=== PATIENT | female | born 1955 | race Caucasian/White ===

== ENCOUNTER → 2018-02-13 11:13 | Outpatient (CLI) | payer MEDICARE, SELFPAY ==
[2018-02-13 15:43] LABS: Absolute Lymphocyte Count 1.17 X10^3/ul (0.83-4.51); Basophil# 0.01 X10^3/uL; Basophil% 0.2 % (0-1); Eosinophil# 0.12 X10^3/uL; Eosinophils% 2.6 % (0-5); Hematocrit 33.5 % (37-47); Hemoglobin 10.4 g/dl (12.0-15.0); Lymphocyte # 1.17 X10^3/ul (4.0); Lymphocyte % 25.4 % (19-41); Mean Corpuscular Hgb 29.4 pg (27.0-32.0); Mean Corpuscular Volume 94.6 fL (81-99); Mean Platelet Vol. 9.5 fl (6.2-12.0); Monocyte# 0.32 X10^3/uL; Monocyte% 6.9 % (0-10); Neutrophil # 2.98 X10^3/uL (2.7-7.7); Neutrophil % 64.7 % (47-70); Platelet Count 259 K/mm3 (150-450); RBC Distribution Width CV 16.6 % (11.6-14.6); RBC Distribution Width SD 57.8 fl (35.1-43.9); Red Blood Count 3.54 M/mm3 (4.2-5.4); White Blood Count 4.6 K/mm3 (4.4-11.0)
[2018-02-13 15:51] LABS: POSITIVE COUNT NO; POSITIVE DIFFERENTIAL NO; POSITIVE MORPHOLOGY NO
[2018-02-13 16:01] LABS: International Normalized Ratio 2.8; Prothrombin Time (Protime)PT. 29.8 SECONDS (11.7-14.9)
[2018-02-13 16:11] LABS: Anion Gap 11 (5-15); BUN 34 mg/dL (7-18); BUN/Creat Ratio 11.4 RATIO (10-20); Chloride 109 mmol/L (98-107); Creatinine, Serum 2.98 mg/dL (0.55-1.02); EST Glomerular Filtration Rate 17 mL/min (>60); Est Glom Filt Rate - Afr Amer 20 mL/min (>60); Glucose 124 mg/dL (74-106); Potassium 4.7 mmol/L (3.5-5.1); Sodium Level 142 mmol/L (136-145)
== END ==
PROVIDERS: Family Provider Family Medicine; PCP Family Medicine; Visit Provider Family Medicine
DX: D68.2 Hereditary deficiency of other clotting factors (principal); N02.8 Recurrent and persistent hematuria with other morphologic changes
CPT/HCPCS: 36415; 80048; 85025; 85610

== ENCOUNTER → 2018-05-19 09:17 | Outpatient (CLI) | payer MEDICARE, SELFPAY ==
--- NOTE | 2018-05-19 09:25 | RAD_ITS ---
STUDY: X-RAY - LUMBAR SPINE REASON FOR EXAM: Female, 62 years old. Lower back pain. TECHNIQUE: 4 view(s) of the lumbar spine were obtained. COMPARISON: Lumbar spine, February 18, 2017. FINDINGS: There is exaggeration of lumbar lordosis. There is a levoscoliosis with the convexity L2. There is anterolisthesis of L4 and L5. The remainder of the alignment is preserved. There is no change in alignment with flexion or extension. There is multilevel endplate spondylosis of the lumbar vertebrae. There is multi-level degenerative disc disease with multi-level disc space narrowing. There is a questionable compression deformity superior endplate of L3 although this may be partially secondary to the scoliosis. No marked compression is noted on the AP film. There is evidence of a muscle, stimulator as well as a sacral stimulator. RAD/L/S Spine Min 4 Views IMPRESSION: Scoliosis and degenerative changes lumbar spine. There is no major change from February 18, 2017. Electronically Signed: Cabrera Arango DO at 17:25 EDT Tel [phone], Service support ,
--- NOTE | 2018-05-19 09:49 | RAD_ITS ---
STUDY: XR SPINE ENTIRE THORACIC T LUMBAR (W SKULL, CERVICAL AND SACRAL SPINE IF PERFORMED) REASON FOR EXAM: Female, 62 years old. Chronic back pain. TECHNIQUE: Radiological exam, spine, entire thoracic and lumbar, including skull, cervical and sacral spine if performed (eg, scoliosis evaluation); 2 or 3 views. COMPARISON: None. FINDINGS: There is a 15 degree dextroscoliosis of the thoracic spine with the apex of the convexity at the T6 level. There is a 20 degree levoscoliosis scoliosis of the lumbar spine with the apex of the convexity at the level. Normal kyphosis of the thoracic spine. Normal thoracic vertebrae and endplates. There is multilevel disc space narrowing of the thoracic spine. Normal lordosis of the lumbar spine. Normal lumbar vertebrae and endplates. There is multilevel disc space narrowing of the lumbar spine. The soft tissue structures are unremarkable. RAD/Scoliosis 2 or 3 views IMPRESSION: 15 degree dextroscoliosis of the thoracic spine and 20 degrees levoscoliosis of the lumbar spine. Electronically Signed: Pola Archuleta MD at 9:16 EDT Tel [phone], Service support ,
--- NOTE | 2018-05-19 10:32 | RAD_ITS ---
STUDY: X-RAY - LEFT KNEE REASON FOR EXAM: Female, 62 years old. Bilateral knee pain. TECHNIQUE: 4 view(s) of the knee. COMPARISON: None. FINDINGS: Normal visualized distal femur. Normal visualized proximal tibia and fibula. Normal proximal tibiofibular articulation. There is no demonstrated destructive osseous lesion. There is a genu varus deformity. 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 There is mild degenerative arthrosis of the lateral femorotibial compartment. There is severe degenerative arthrosis of the patellofemoral articulation. 1 The soft tissue structures are unremarkable. RAD/Knee 4 or More Views IMPRESSION: Degenerative changes of the left knee. Electronically Signed: Cabrera Arango DO at 17:27 EDT Tel [phone], Service support ,
--- NOTE | 2018-05-19 10:33 | RAD_ITS ---
STUDY: X-RAY - RIGHT KNEE REASON FOR EXAM: Female, 62 years old. Bilateral knee pain. TECHNIQUE: 4 view(s) of the knee. COMPARISON: None. FINDINGS: Normal visualized distal femur. Normal visualized proximal tibia and fibula. Normal proximal tibiofibular articulation. There is no demonstrated destructive osseous lesion. There is moderate degenerative arthrosis of the medial femorotibial compartment with moderate joint space narrowing. There is severe degenerative arthrosis of the lateral femorotibial compartment with severe joint space narrowing. There is severe degenerative arthrosis of the patellofemoral articulation. The soft tissue structures are unremarkable. RAD/Knee 4 or More Views IMPRESSION: Degenerative changes of the right knee with small joint effusion. Electronically Signed: Cabrera Arango DO at 17:26 EDT Tel [phone], Service support ,
== END ==
PROVIDERS: Family Provider Family Medicine; PCP Family Medicine; Visit Provider Orthopaedic Surgery
DX: M41.85 Other forms of scoliosis, thoracolumbar region (principal); M47.896 Other spondylosis, lumbar region; M51.36 Other intervertebral disc degeneration, lumbar region; M17.0 Bilateral primary osteoarthritis of knee
CPT/HCPCS: 72082; 72110; 73564

== ENCOUNTER → 2018-06-22 09:55 | Outpatient (CLI) | payer MEDICARE, SELFPAY ==
[2018-06-22 12:39] LABS: Absolute Lymphocyte Count 2.08 X10^3/ul (0.83-4.51); Absolute Neutrophil Count 7.3 X10^3/uL (2.0-7.7); Basophil# 0.01 X10^3/uL; Basophil% 0.1 % (0-1); Hematocrit 37.6 % (37-47); Hemoglobin 12.5 g/dl (12.0-15.0); Lymphocyte # 2.08 X10^3/ul (4.0); Lymphocyte % 20.2 % (19-41); Mean Corp Hgb Conc 33.2 g/gl (32-36); Mean Corpuscular Hgb 31.7 pg (27.0-32.0); Mean Corpuscular Volume 95.4 fL (81-99); Mean Platelet Vol. 9.4 fl (6.2-12.0); Monocyte# 0.79 X10^3/uL; Monocyte% 7.7 % (0-10); Neutrophil # 7.31 X10^3/uL (2.7-7.7); Neutrophil % 70.7 % (47-70); Platelet Count 305 K/mm3 (150-450); RBC Distribution Width CV 13.6 % (11.6-14.6); RBC Distribution Width SD 45.8 fl (35.1-43.9); Red Blood Count 3.94 M/mm3 (4.2-5.4); White Blood Count 10.3 K/mm3 (4.4-11.0)
[2018-06-22 12:41] LABS: POSITIVE COUNT NO; POSITIVE DIFFERENTIAL NO; POSITIVE MORPHOLOGY NO
[2018-06-22 12:51] LABS: Anion Gap 13 (5-15); BUN 43 mg/dL (7-18); BUN/Creat Ratio 17.9 RATIO (10-20); Calcium,Total 8.8 mg/dL (8.5-10.1); Chloride 108 mmol/L (98-107); Cholesterol 286 mg/dL (200); EST Glomerular Filtration Rate 22 mL/min (>60); Est Glom Filt Rate - Afr Amer 26 mL/min (>60); Glucose 106 mg/dL (74-106); High Density Lipoprotein 44 mg/dL; Potassium 4.8 mmol/L (3.5-5.1); Sodium Level 141 mmol/L (136-145); Triglycerides 231 mg/dL; Uric Acid 4.8 mg/dL (2.6-6.0); Very Low Density Lipoprotein 46 mg/dL (5-40)
[2018-06-22 13:02] LABS: Hemoglobin A1c 5.8 % (4.2-6.3)
== END ==
PROVIDERS: Family Provider Family Medicine; PCP Family Medicine; Visit Provider Family Medicine
DX: N02.8 Recurrent and persistent hematuria with other morphologic changes (principal); I12.9 Hypertensive chronic kidney disease with stage 1 through stage 4 chronic kidney disease, or unspecified chronic kidney disease; N18.4 Chronic kidney disease, stage 4 (severe); E78.5 Hyperlipidemia, unspecified; R73.03 Prediabetes
CPT/HCPCS: 36415; 80048; 80061; 83036; 84550; 85025

== ENCOUNTER → 2018-06-26 11:14 | Outpatient (CLI) | payer MEDICARE, SELFPAY ==
[2018-06-26 11:34] LABS: International Normalized Ratio 1.4; Prothrombin Time (Protime)PT. 17.6 SECONDS (11.7-14.9)
[2018-06-26 12:24] VITALS: BP 145/71; PULSE 68; RESP 16; TEMP 36.9; O2SAT 97; BMI 34.0
[2018-06-26 14:20] VITALS: BP 113/63; PULSE 64; RESP 16; O2SAT 95
--- NOTE | 2018-06-26 14:35 | NURSING ---
PT STS SHE FEELS MUCH BETTER. DENIES DIZZINESS WITH STANDING/AMBULATION.
== END ==
LOC: RAD 11:15
PROVIDERS: Family Provider Family Medicine; PCP Family Medicine; Visit Provider Orthopaedic Surgery
DX: M54.5 Low back pain (principal); G89.29 Other chronic pain; D68.2 Hereditary deficiency of other clotting factors
CPT/HCPCS: 36415; 72125; 72131; 72270; 85610; Q9967

== ENCOUNTER → 2018-11-12 13:43 | Outpatient (CLI) | payer MEDICARE, BC, SELFPAY ==
[2018-11-12 16:01] LABS: Absolute Lymphocyte Count 1.18 X10^3/ul (0.83-4.51); Absolute Neutrophil Count 4.9 X10^3/uL (2.0-7.7); Basophil# 0.01 X10^3/uL; Basophil% 0.1 % (0-1); Eosinophil# 0.11 X10^3/uL; Eosinophils% 1.6 % (0-5); Hemoglobin 11.7 g/dl (12.0-15.0); Lymphocyte # 1.18 X10^3/ul (4.0); Lymphocyte % 17.6 % (19-41); Mean Corp Hgb Conc 32.5 g/gl (32-36); Mean Corpuscular Hgb 30.2 pg (27.0-32.0); Mean Platelet Vol. 9.1 fl (6.2-12.0); Monocyte% 7.5 % (0-10); Neutrophil # 4.87 X10^3/uL (2.7-7.7); Neutrophil % 72.9 % (47-70); POSITIVE COUNT NO; POSITIVE DIFFERENTIAL NO; POSITIVE MORPHOLOGY NO; Platelet Count 302 K/mm3 (150-450); RBC Distribution Width CV 16.7 % (11.6-14.6); Red Blood Count 3.87 M/mm3 (4.2-5.4); White Blood Count 6.7 K/mm3 (4.4-11.0)
[2018-11-12 16:22] LABS: Anion Gap 12 (5-15); BUN 34 mg/dL (7-18); BUN/Creat Ratio 16.2 RATIO (10-20); Calcium,Total 8.9 mg/dL (8.5-10.1); Chloride 107 mmol/L (98-107); EST Glomerular Filtration Rate 25 mL/min (>60); Est Glom Filt Rate - Afr Amer 30 mL/min (>60); Ferritin 266 ng/mL (8-252); Glucose 91 mg/dL (74-106); Iron 95 ug/dL (50-170); Potassium 3.8 mmol/L (3.5-5.1); Sodium Level 142 mmol/L (136-145)
[2018-11-12 16:27] LABS: International Normalized Ratio 1.5
== END ==
PROVIDERS: Family Provider Family Medicine; PCP Family Medicine; Visit Provider Family Medicine
DX: N18.4 Chronic kidney disease, stage 4 (severe) (principal); D63.1 Anemia in chronic kidney disease; N02.8 Recurrent and persistent hematuria with other morphologic changes; Z51.81 Encounter for therapeutic drug level monitoring; Z79.01 Long term (current) use of anticoagulants
CPT/HCPCS: 36415; 80048; 82728; 83540; 85025; 85610

== ENCOUNTER → 2018-11-26 15:31 | Outpatient (CLI) | payer MEDICARE, BC, SELFPAY ==
[2018-11-26 15:35] LABS: Bacteria 0 SEEN /hpf (None Seen); Mucous, Urine 0 SEEN /hpf (<or=2+)
[2018-11-26 16:59] LABS: Color, Urine Yellow (Yellow); Glucose, Dipstick Normal (Normal); Ketone-Dipstick 5 mg/dl (Negative); Leukocyte Esterase-Dipstick 500 /ul (Negative); Nitrite-Dipstick Negative (Negative); Occult Blood-Urine 10 /ul (Negative); Protein-Dipstick 30 mg/dl (Negative); Urine Clarity Sl. Cloudy (Clear); Urine Urobilinogen Normal (Normal)
[2018-11-26 17:02] LABS: Urine Bilirubin Dipstick 1 mg/dL (Negative)
[2018-11-26 17:08] LABS: Absolute Lymphocyte Count 1.71 X10^3/ul (0.83-4.51); Absolute Neutrophil Count 5.7 X10^3/uL (2.0-7.7); Basophil# 0.04 X10^3/uL; Basophil% 0.5 % (0-1); Eosinophil# 0.12 X10^3/uL; Eosinophils% 1.4 % (0-5); Hematocrit 38.3 % (37-47); Hemoglobin 12.8 g/dl (12.0-15.0); Lymphocyte # 1.71 X10^3/ul (4.0); Lymphocyte % 20.6 % (19-41); Mean Corp Hgb Conc 33.4 g/gl (32-36); Mean Corpuscular Hgb 31.3 pg (27.0-32.0); Mean Corpuscular Volume 93.6 fL (81-99); Mean Platelet Vol. 9.2 fl (6.2-12.0); Monocyte# 0.73 X10^3/uL; Monocyte% 8.8 % (0-10); Neutrophil % 68.5 % (47-70); Platelet Count 280 K/mm3 (150-450); RBC Distribution Width CV 15.9 % (11.6-14.6); RBC Distribution Width SD 53.9 fl (35.1-43.9); Red Blood Count 4.09 M/mm3 (4.2-5.4); White Blood Count 8.3 K/mm3 (4.4-11.0)
[2018-11-26 17:13] LABS: ALB/GLOB Ratio 0.9 RATIO (0.9-2.4); AST(SGOT) 13 U/L (15-37); Alanine Aminotransfer ALT/SGPT 20 U/L (13-56); Albumin, Serum 3.4 g/dL (3.2-5.0); Alkaline Phosphatase 94 U/L (45-117); Anion Gap 9 (5-15); BUN 24 mg/dL (7-18); BUN/Creat Ratio 11.2 RATIO (10-20); Calcium,Total 8.7 mg/dL (8.5-10.1); Chloride 109 mmol/L (98-107); Creatinine, Serum 2.15 mg/dL (0.55-1.02); EST Glomerular Filtration Rate 25 mL/min (>60); Est Glom Filt Rate - Afr Amer 30 mL/min (>60); Globulin 3.9 g/dL (2.2-4.2); Glucose 101 mg/dL (74-106); Potassium 4.1 mmol/L (3.5-5.1); Protein, Total 7.3 g/dL (6.4-8.2); Sodium Level 139 mmol/L (136-145)
[2018-11-26 17:29] LABS: Differential Comment SCANNED; Differential Indicated SCAN CRITERIA MET; POSITIVE COUNT NO; POSITIVE DIFFERENTIAL NO; POSITIVE MORPHOLOGY YES
[2018-11-26 18:13] LABS: Amorphous Sediment 1+ URATE; Red Blood Cells-Urine 0-5 SEEN /hpf (0-5); Renal Epithelial Cells 0-5 SEEN /hpf (0-5); Squamous Epithelial Cells - UA 0-5 SEEN /hpf (5-10); White Blood Cells 25-50 SEEN /hpf (0-5)
--- OUTSIDE RECORDS SUMMARY | 2019-01-31 11:17 | XMS RPT_ITS ---
:1955 Author Organization [place] Support Name Relationship Address Phone D Unavailable Unavailable Unavailable BIMAL OLIVER Unavailable [address] + [place] [address] D Unavailable Unavailable Unavailable BIMAL OLIVER Unavailable [address] + [place] [address] BIMAL OLIVER Unavailable [address] + [facility] [place] [address] NOT GIVEN Unavailable Unavailable Unavailable BIMAL OLIVER Unavailable [address] + [place] [address] NOT GIVEN Unavailable Unavailable Unavailable D Unavailable Unavailable Unavailable BIMAL OLIVER Unavailable [address] + [place] [address] D Unavailable Unavailable Unavailable BIMAL OLIVER Unavailable Unavailable + [place] [address] D Unavailable Unavailable Unavailable BIMAL OLIVER Unavailable . + [place] [address] D Unavailable Unavailable Unavailable BIMAL OLIVER Unavailable Unavailable + D Unavailable Unavailable Unavailable BIMAL OLIVER Unavailable . + [place] [address] D Unavailable Unavailable Unavailable SEBASTIAN OLIVER Unavailable [address] + [place] [address] D Unavailable Unavailable Unavailable SEBASTIAN OLIVER Unavailable [address] + [place] [address] BIMAL OLIVER Unavailable [address] + [place] [address] NOT GIVEN Unavailable Unavailable Unavailable BIMAL OLIVER Unavailable [address] + [place] [address] NOT GIVEN Unavailable Unavailable Unavailable D Unavailable Unavailable Unavailable SEBASTIAN OLIVER Unavailable [address] + [place] [address] BIMAL OLIVER Unavailable Unavailable + BIMAL OLIVER Unavailable Unavailable + BIMAL OLIVER Unavailable [address] + [place] [address] BIMAL OLIVER Unavailable [address] + [place] [address] BIMAL OLIVER Unavailable [address] + [facility] [place] [address] NOT GIVEN Unavailable Unavailable Unavailable BIMAL OLIVER Unavailable [address] + [place] [address] NOT GIVEN Unavailable Unavailable Unavailable BIMAL OLIVER Unavailable [address] + [facility] [address] NOT GIVEN Unavailable Unavailable Unavailable BIMAL OLIVER Unavailable [address] + [place] [address] NOT GIVEN Unavailable Unavailable Unavailable Care Team Providers Name Role Phone DR. SCOTT ROBLEDO DO Primary Care Unavailable FATEHCNADINE, ANOGIACOMO Admitting Unavailable PATT NEAL MD Attending Unavailable FABIO WOLF, YAS Consulting Unavailable ISABELL KENT MD Consulting Unavailable MISTY WOLF, ANNA Consulting Unavailable DANIEL WOLF., DR. CELESTINO Langston Consulting Unavailable MARVINHCHAND, ANODIKA Attending Unavailable DR. SCOTT ROBLEDO DO Primary Care Unavailable SCOTT ROBLEDO Admitting Unavailable SCOTT ROBLEDO Attending Unavailable SCOTT ROBLEDO Primary Care Unavailable SCOTT ROBLEDO Consulting Unavailable PROVIDER, UNKNOWN Consulting Unavailable SCOTT ROBLEDO Admitting Unavailable SCOTT ROBLEDO Attending Unavailable SCOTT ROBLEDO Primary Care Unavailable SCOTT ROBLEDO Consulting Unavailable PROVIDER, UNKNOWN Consulting Unavailable ISABELL KENT MD Admitting Unavailable ISABELL KENT MD Attending Unavailable ISABELL KENT MD Primary Care Unavailable SCOTT ROBLEDO Consulting Unavailable PROVIDER, UNKNOWN Consulting Unavailable SWETHA SNOW Admitting Unavailable SWETHA SNOW Attending Unavailable SWETHA SNOW Primary Care Unavailable SCOTT ROBLEDO Consulting Unavailable SWETHA SNOW Referring Unavailable PROVIDER, UNKNOWN Consulting Unavailable ISABELL KENT MD Admitting Unavailable ISABELL KENT MD Attending Unavailable ISABELL KENT MD Primary Care Unavailable MAHNAZ, SCOTT A Consulting Unavailable PROVIDER, UNKNOWN Consulting Unavailable MAHNAZ, SCOTT A Admitting Unavailable MAHNAZ, SCOTT A Attending Unavailable MAHNAZ, SCOTT A Primary Care Unavailable MAHNAZ, SCOTT A Consulting Unavailable PROVIDER, UNKNOWN Consulting Unavailable NEREIDA JONES MD Admitting Unavailable NEREIDA JONES MD Attending Unavailable NEREIDA JONES MD Primary Care Unavailable MAHNAZ, SCOTT A Consulting Unavailable PROVIDER, UNKNOWN Consulting Unavailable ISABELL KENT MD Admitting Unavailable ISABELL KENT MD Attending Unavailable ISABELL KENT MD Primary Care Unavailable MAHNAZ, SCOTT A Consulting Unavailable PROVIDER, UNKNOWN Consulting Unavailable Mahnaz, Scott Attending Unavailable Mahnaz, Scott Primary Care Unavailable Mahnaz, Scott Attending Unavailable Mahnaz, Scott Primary Care Unavailable Mahnaz, Scott Primary Care Unavailable Susy Zhu Attending Unavailable Mahnaz, Scott Attending Unavailable Mahnaz, Scott Primary Care Unavailable Jones, Nereida Attending Unavailable Mahnaz, Scott Referring Unavailable Mahnaz, Scott Primary Care Unavailable Jones, Nereida Attending Unavailable Jones, Nereida Referring Unavailable Mahnaz, Scott Primary Care Unavailable Jones, Nereida Attending Unavailable Jones, Nereida Referring Unavailable Mahnaz, Scott Primary Care Unavailable Sweta Godfrey Attending Unavailable Mahnaz, Scott Referring Unavailable Mahnaz, Scott Primary Care Unavailable Jones, Nereida Attending Unavailable Jones, Nereida Referring Unavailable Mahnaz, Scott Primary Care Unavailable Jones, Nereida Attending Unavailable Mahnaz, Scott Referring Unavailable PROBLEMS PROBLEMS DATE TYPE CONDITION / CODE ATTENDING STATUS SOURCE 11/26/2018 Unknown N02.8 - Recurrent Mahnaz, Scott Active [place] and persistent Community hematuria with other Hospital morphologic changes Repository / N02.8(ICD-10) 11/26/2018 Unknown R30.0 - Dysuria / Mahnaz, Scott Active [place] R30.0(ICD-10) Community Hospital Repository 11/26/2018 Unknown N18.4 - Chronic Mahnaz, Scott Active [place] kidney disease, [facility] stage 4 (severe) / Hospital N18.4(ICD-10) Repository 11/13/2018 Unknown D64.9 - Anemia, Scott Robledo Active [place] unspecified / Community D64.9(ICD-10) Hospital Repository 09/01/2018 Admitting Scoliosis, NEREIDA JONES Active [facility] Diagnosis unspecified / [facility] M419(ICD-10) Hospital Repository 09/01/2018 Principle Scoliosis, NEREIDA JONES Active [facility] Diagnosis unspecified / [facility] M419(ICD-10) Hospital Repository 09/01/2018 Secondary Spinal stenosis, NEREIDA JONES Active [facility] Diagnosis site unspecified / [facility] M4800(ICD-10) Hospital Repository 06/26/2018 Unknown 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 / Hospital D68.2(ICD-10) Repository 06/11/2018 Unknown 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, 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 / M17.0(ICD-10) Repository 05/19/2018 Unknown M54.5 - Low back Nereida Jones Active [place] pain / M54.5(ICD-10) [facility] Hospital Repository 05/19/2018 Unknown M25.561 - Pain in Karen, Nereida Active [place] right knee / Community M25.561(ICD-10) Hospital Repository 05/19/2018 Unknown M25.562 - Pain in Karen, Nereida Active [place] left knee / Community M25.562(ICD-10) Hospital Repository 05/19/2018 Unknown M54.12 - Nereida Jones Active [place] Radiculopathy, [facility] cervical region / Hospital M54.12(ICD-10) Repository 05/19/2018 Unknown M54.16 - Roxanna JonesNereida Active [place] Radiculopathy, [facility] lumbar region / Hospital M54.16(ICD-10) Repository PROCEDURES PROCEDURES No Procedure Records FoundRESULTS RESULTS URINALYSIS, COMPLETE Collected: 11/26/2018 Status: F Source: [place] 3:32 PM [facility] REPOSITORY Order Comment: How was Urine Obtained? CLEAN CATCH TYPE CODE TESTS RESULT OUT OF RANGE REFERENCE UNITS LAB L400.3000 Yellow COLOR Normal Yellow LAB L400.3050 Clear Normal CLARITY Sl. Cloudy LAB L400.3200 Normal mg/dl Normal GLUCOSE, UR Normal LAB L400.3300 Negative mg/dL High BILIRUBIN URINE 1 Result Comment: COLOR OF URINE MAY AFFECT DIPSTICK RESULTS. LAB L400.3400 Negative mg/dl High KETONE UR 5 LAB L400.3465 1.002-1.030 Normal SP.GR. DIPSTX 1.020 LAB L400.3550 5.0 - 8.0 pH Normal UR 5.0 LAB L400.3600 Negative mg/dl High PROT DIPSTX 30 LAB L400.3700 Normal mg/dl Normal UROBILI Normal LAB L400.3750 Negative Normal NITRITE UR Negative LAB L400.3780 Negative /ul High OCCULT 10 BLOOD-UR LAB L400.3800 Negative /ul High LEUK ESTERASE 500 LAB L400.4050 0-5 /hpf Normal WBC 25-50 SEEN LAB L400.4100 0-5 /hpf Normal RBC-UA 0-5 SEEN LAB L400.4150 5-10 /hpf Normal SQUAM EPI 0-5 SEEN LAB L400.4300 None Seen /hpf Normal BACTERIA 0 SEEN LAB L400.4350 <or=2+ /hpf Normal MUCUS, URINE 0 SEEN LAB L400.4250 0-5 /hpf Normal RENAL EPI 0-5 SEEN LAB L400.4900 Normal AMORPHOUS 1+ URATE Performed By: #### L400.0001 #### [facility] [address] [place], [address] COMPREHENSIVE METABOLIC Collected: 11/26/2018 Status: F Source: [facility] 3:32 PM [facility] REPOSITORY TYPE CODE TESTS RESULT OUT OF RANGE REFERENCE UNITS LAB L501.0100 74-106 mg/dL Normal GLU 101 Result Comment: Fasting Glucose result from 100 to 125 mg/dL suggests IMPAIRED HOMEOSTASIS per A.D.A. criteria. Please note revised GLUCOSE reference range effective 2017. LAB L501.1000 7-18 mg/dL High BUN 24 LAB L501.1100 0.55-1.02 mg/dL High CREAT,SERUM 2.15 Result Comment: The validity of the calculated GFR AND GFRAA in patients over 70 years has not been determined. Clinical correlation is essential. LAB L501.1110 >60 mL/min Low EST GFR 25 Result Comment: Non- GFR Calc LAB L501.1115 >60 mL/min Low EST GFR - AA 30 Result Comment: GFR Calc LAB L501.1300 10-20 RATIO Normal BUN/CRE 11.2 LAB L501.1500 6.4-8.2 g/dL T Normal PROT 7.3 LAB L501.1800 3.2-5.0 g/dL Normal ALB 3.4 LAB L501.1950 2.2-4.2 g/dL Normal GLOB 3.9 LAB L501.2000 0.9-2.4 RATIO Normal A/G 0.9 LAB L501.2200 8.5-10.1 mg/dL CA Normal 8.7 LAB L501.4100 15-37 U/L Low AST 13 LAB L501.4305 45-117 U/L Normal ALK P 94 LAB L501.4405 13-56 U/L Normal ALT 20 LAB L501.4600 0.20-1.00 mg/dL T Normal BILI 0.40 LAB L501.5300 136-145 mmol/L NA Normal 139 LAB L501.5600 3.5-5.1 mmol/L K Normal 4.1 LAB L501.5900 98-107 mmol/L High CL 109 LAB L501.6100 21.0-32.0 mmol/L Normal CO2 21.0 LAB L501.6200 5-15 Normal GAP 9 Performed By: #### L500.4050 #### [facility] [address] [place], [address] CBC W/DIFF, AUTOMATED Collected: 11/26/2018 Status: F Source: [place] 3:32 PM [facility] REPOSITORY TYPE CODE TESTS RESULT OUT OF RANGE REFERENCE UNITS LAB L100.1000 4.4-11.0 K/mm3 Normal WBC 8.3 LAB L100.1200 4.2-5.4 M/mm3 Low RBC 4.09 LAB L100.1300 12.0-15.0 g/dl Normal HGB 12.8 LAB L100.1400 37-47 % Normal HCT 38.3 LAB L100.1500 81-99 fL Normal MCV 93.6 LAB L100.1600 27.0-32.0 pg Normal MCH 31.3 LAB L100.1700 32-36 g/gl Normal MCHC 33.4 LAB L100.1810 11.6-14.6 % High RDW CV 15.9 LAB L100.1820 35.1-43.9 fl High RDW SD 53.9 LAB L100.1900 150-450 K/mm3 Normal PLT 280 LAB L100.2000 6.2-12.0 fl Normal MPV 9.2 LAB L100.2100 47-70 % Normal NEUT% 68.5 LAB L100.2200 19-41 % Normal LY% 20.6 LAB L100.2300 0-10 % Normal MONO% 8.8 LAB L100.2400 0-5 % Normal EO% 1.4 LAB L100.2500 0-1 % Normal BASO% 0.5 LAB L100.2550 0.0-0.9 % Normal IM GRAN % 0.200 Result Comment: IG% - Immature Granulocytes (promyelocytes, myelocytes and metamyelocytes) > 1% indicates that a LEFT SHIFT is Present. LAB L100.2620 2.0-7.7 X10 3/uL Normal Absolute Neut 5.7 LAB L100.2720 0.83-4.51 X10 3/ul Normal Absolute Lymph 1.71 LAB L100.4500 Normal SMEAR COMMENT SCANNED Performed By: #### L100.0100 #### [facility] [address] [place], [address] Observed: 11/26/2018 Status: F Source: [place] CULTURE, URINE 3:32 PM [facility] REPOSITORY Urine Culture Below infection level. ORGANISM 1: Mixed Gram Positive Organisms [place] Count 1000-10,000 Performed By: #### M100.0650 #### [facility] [address] [place], [address] CBC W/DIFF, AUTOMATED Collected: 11/12/2018 Status: F Source: [place] 1:52 PM [facility] REPOSITORY TYPE CODE TESTS RESULT OUT OF RANGE REFERENCE UNITS LAB L100.1000 4.4-11.0 K/mm3 Normal WBC 6.7 LAB L100.1200 4.2-5.4 M/mm3 Low RBC 3.87 LAB L100.1300 12.0-15.0 g/dl Low HGB 11.7 LAB L100.1400 37-47 % Low HCT 36.0 LAB L100.1500 81-99 fL Normal MCV 93.0 LAB L100.1600 27.0-32.0 pg Normal MCH 30.2 LAB L100.1700 32-36 g/gl Normal MCHC 32.5 LAB L100.1810 11.6-14.6 % High RDW CV 16.7 LAB L100.1820 35.1-43.9 fl High RDW SD 55.0 LAB L100.1900 150-450 K/mm3 Normal PLT 302 LAB L100.2000 6.2-12.0 fl Normal MPV 9.1 LAB L100.2100 47-70 % High NEUT% 72.9 LAB L100.2200 19-41 % Low LY% 17.6 LAB L100.2300 0-10 % Normal MONO% 7.5 LAB L100.2400 0-5 % Normal EO% 1.6 LAB L100.2500 0-1 % Normal BASO% 0.1 LAB L100.2550 0.0-0.9 % Normal IM GRAN % 0.300 Result Comment: IG% - Immature Granulocytes (promyelocytes, myelocytes and metamyelocytes) > 1% indicates that a LEFT SHIFT is Present. LAB L100.2620 2.0-7.7 X10 3/uL Normal Absolute Neut 4.9 LAB L100.2720 0.83-4.51 X10 3/ul Normal Absolute Lymph 1.18 Performed By: #### L100.0100 #### [facility] [address] [place], [place], [id number] BASIC METABOLIC Collected: 11/12/2018 Status: F Source: [place] PROFILE ([facility]) 1:52 PM [facility] REPOSITORY TYPE CODE TESTS RESULT OUT OF RANGE REFERENCE UNITS LAB L501.0100 74-106 mg/dL Normal GLU 91 Result Comment: Please note revised GLUCOSE reference range effective 2017. LAB L501.1000 7-18 mg/dL High BUN 34 LAB L501.1100 0.55-1.02 mg/dL High CREAT,SERUM 2.10 Result Comment: The validity of the calculated GFR AND GFRAA in patients over 70 years has not been determined. Clinical correlation is essential. LAB L501.1110 >60 mL/min Low EST GFR 25 Result Comment: Non- GFR Calc LAB L501.1115 >60 mL/min Low EST GFR - AA 30 Result Comment: GFR Calc LAB L501.1300 10-20 RATIO Normal BUN/CRE 16.2 LAB L501.2200 8.5-10.1 mg/dL CA Normal 8.9 LAB L501.5300 136-145 mmol/L NA Normal 142 LAB L501.5600 3.5-5.1 mmol/L K Normal 3.8 LAB L501.5900 98-107 mmol/L CL Normal 107 LAB L501.6100 21.0-32.0 mmol/L Normal CO2 23.0 LAB L501.6200 5-15 Normal GAP 12 Performed By: #### L500.2500, L503.6150, L503.6550 #### [facility] [address] [place] [place], [address] IRON Collected: 11/12/2018 Status: F Source: [place] 1:52 PM [facility] REPOSITORY TYPE CODE TESTS RESULT OUT OF RANGE REFERENCE UNITS LAB L503.6150 50-170 ug/dL Normal IRON 95 Performed By: #### L500.2500, L503.6150, L503.6550 #### [facility] [address] [place], [address] FERRITIN Collected: 11/12/2018 Status: F Source: [place] 1:52 PM [facility] REPOSITORY TYPE CODE TESTS RESULT OUT OF REFERENCE UNITS RANGE LAB L503.6550 8-252 ng/mL High FERRITIN 266 Performed By: #### L500.2500, L503.6150, L503.6550 #### [facility] [address] [place], [address] PROTHROMBIN TIME W/INR Collected: 11/12/2018 Status: F Source: [place] 1:52 PM [facility] REPOSITORY TYPE CODE TESTS RESULT OUT OF RANGE REFERENCE UNITS LAB L300.4150 11.7-14.9 SECONDS High PROTIME 18.0 LAB L300.4200 Normal INR 1.5 Performed By: #### L300.3900 #### [facility] [address] [place] [place], [address] CBC (NO DIFF) Collected: 10/12/2018 Status: F Source: [place] [facility] 9:11 AM [facility] REPOSITORY TYPE CODE TESTS RESULT OUT OF RANGE REFERENCE UNITS LAB CBC (NO DIFF)(LOINC ) CBC (NO DIFF) Result Comment: CBC(WITHOUT DIFFERENTIAL) LAB WBC(LOINC) 4.5 - 10.8 x 10EE3/UL WBC 6.9 LAB RBC(LOINC) 4.10 - x 10EE6/UL 5.30 RBC Low 4.04 LAB HEMOGLOBIN(LOINC) 12.0 - g/dl 16.0 HEMOGLOBIN 13.0 LAB HEMATOCRIT(LOINC) 34.0 - % 46.0 HEMATOCRIT 38.6 LAB MCV(LOINC) 80 - 99 fl MCV 96 LAB MCH(LOINC) 27 - 33 pg MCH 32 LAB MCHC(LOINC) 32 - 36 X10 3 MCHC 34 LAB RDW/CV(LOINC) 12.0 - % 15.6 RDW/CV 15.6 LAB PLATELET(LOINC) 150 - 450 x10EE3/UL PLATELET 293 LAB MPV(LOINC) 6.6 - 10.5 fl MPV 7.6 Result Comment: {CB] Performed By: #### [id number] #### [facility],[address] [place] [address] URINE CREATININE AND Collected: 10/12/2018 Status: F Source: [place] PROTEIN RATIO 9:11 AM [facility] REPOSITORY TYPE CODE TESTS RESULT OUT OF REFERENCE UNITS RANGE LAB CREATININE mg/dl UR(LOINC) CREATININE UR 179.1 LAB URINE TOTAL 0.00 - 10.00 mg/dL PROTEIN(LOINC) URINE High TOTAL PROTEIN 55.00 LAB PC RATIO(LOINC) 0 - 10 mg/dL PC RATIO 0 Performed By: #### [id number] #### [facility],[address] [place], [place] [address] RENAL FUNCTION PANEL Collected: 10/12/2018 Status: F Source: [place] 9:11 AM [facility] REPOSITORY TYPE CODE TESTS RESULT OUT OF REFERENCE UNITS RANGE LAB RENAL FUNCTION PANEL(LOINC) RENAL FUNCTION PANEL Result Comment: RENAL FUNCTION PANEL LAB SODIUM(LOINC) 136 - 145 mmol/l SODIUM 140 LAB POTASSIUM(LOINC) 3.5 - 5.1 mmol/L POTASSIUM 4.0 LAB CHLORIDE(LOINC) 98 - 107 mmol/L CHLORIDE High 108 LAB GLUCOSE(LOINC) 74 - 106 mg/dl GLUCOSE High 119 LAB BUN(LOINC) 6 - 20 mg/dl BUN High 32 LAB CREATININE(LOINC) 0.6 - 1.2 mg/dl High CREATININE 2.2 LAB CALCIUM(LOINC) 8.6 - mg/dl 10.2 CALCIUM 9.8 LAB ALBUMIN(LOINC) 3.4 - 4.8 g/dL ALBUMIN 4.2 LAB B/C RATIO(LOINC) 0 - 30 ratio B/C RATIO 15 LAB CO2(LOINC) 21.0 - mmol/L 31.0 CO2 21.7 LAB PHOSPHORUS(LOINC) 2.7 - 4.5 mg/dl PHOSPHORUS 3.3 Performed By: #### [id number] #### [place] [address] URIC ACID Collected: 10/12/2018 Status: F Source: [facility] 9:11 [facility] REPOSITORY TYPE CODE TESTS RESULT OUT OF RANGE REFERENCE UNITS LAB URIC 2.3 - 6.6 mg/dl ACID(LOINC) URIC ACID 5.3 Performed By: #### [id number] #### [place] [address] IRON Collected: 10/12/2018 Status: F Source: [facility] 9:11 [facility] REPOSITORY TYPE CODE TESTS RESULT OUT OF RANGE REFERENCE UNITS LAB IRON(LOINC) 50 - 170 ug/dl IRON 86 Performed By: #### [id number] #### [place] [address] FERRITIN Collected: 10/12/2018 Status: F Source: [facility] 9:11 [facility] REPOSITORY TYPE CODE TESTS RESULT OUT OF REFERENCE UNITS RANGE LAB FERRITIN(LO 10 - 291 ng/mL INC) FERRITIN 74 Performed By: #### [id number] #### [place] [address] PTH, INTACT [CCL] Collected: 10/12/2018 Status: F Source: [facility] 9:11 [facility] REPOSITORY TYPE CODE TESTS RESULT OUT OF REFERENCE UNITS RANGE LAB PTH, INTACT [CCL](LOINC) PTH, INTACT [CCL] Result Comment: _PTH, INTACT [CCL]_ PTH, INTACT [CCL] Reported: 10/13/2018 10:06 Status=F TEST RESULT FLAG RANGE UNITS PTH, Intact 83 H 15-65 pg/mL 10/13/[id number] [facility] [address] [place] [address] Isis Gordon M.D. [id number] Performed By: #### [id number] #### [facility],[address] [place] [address] PTH, INTACT Collected: 10/12/2018 Status: F Source: [place] 9:11 AM [facility] REPOSITORY TYPE CODE TESTS RESULT OUT OF REFERENCE UNITS RANGE LAB PTH(LOINC) 15-65 pg/mL High PTH, Intact 83 Performed By: #### PTHI #### [facility] Routine Lab [address] [place], [place] [address] ORTHOPEDIC VISIT Observed: 08/05/2018 Status: F Source: [place] REPORT 5:08 PM [facility] REPOSITORY [facility] [address] [place] [address] OFFICE VISIT Date of Service: 08/04/18 MR#: [id number] Acct: [id number] Name: DEBBIE OLIVER Rep #: [id number] : 1955 Provider: Nereida Jones MD Age/Sex: 62/F Location: [facility] Status: Signed Intake Intake Visit Reasons: LOW BACK Is patient in pain?: Yes Pain scale (1-10): 10 Allergies No Known Allergies Allergy (Verified 08/04/18 15:40) Medications allopurinol 100 mg tablet 100 mg PO QDAY 05/19/18 [History Confirmed 06/26/18] cholecalciferol (vitamin D3) 1,000 unit capsule 1,000 unit PO QDAY 05/19/18 [History Confirmed 06/26/18] citalopram 40 mg tablet 20 mg PO QDAY 05/19/18 [History Confirmed 06/26/18] ferrous sulfate 325 mg (65 mg iron) tablet 325 mg PO QDAY tab 05/19/18 [History Confirmed 06/26/18] hydrocodone 10 mg-acetaminophen 325 mg tablet 1 tab PO Q6H PRN 05/19/18 [History Confirmed 06/26/18] lorazepam 1 mg tablet 1 mg PO QHS PRN 05/19/18 [History Confirmed 06/26/18] metoprolol tartrate 25 mg tablet 25 mg PO BID 05/19/18 [History Confirmed 06/26/18] omega-3 fatty acids 1,000 mg capsule 1,000 mg PO QDAY 05/19/18 [History Confirmed 06/26/18] oxybutynin chloride ER 10 mg tablet,extended release 24 hr 10 mg PO QDAY 05/19/18 [History Confirmed 06/26/18] vitamin B12 500 mcg-folic acid 400 mcg tablet 1 tab PO QDAY 05/19/18 [History Confirmed 06/26/18] warfarin 7.5 mg tablet 7.5 mg PO QDAY 05/19/18 [History Confirmed 06/26/18] PFSH Medical History Diabetes (Acute) Factor V Leiden (Acute) Kidney disease (Acute) Hypertension (Chronic) Surgical History h/o back surgery (Acute) h/o nerve stimulator (Acute) Family History Father Hypertension Diabetes Factor V Leiden Heart disease Mother Factor V Leiden Sister Cancer Factor V Leiden HPI LOW BACK: Details: DEBBIE OLIVER returns today in follow up to review her CT myelogram cervical and lumbar spine. Patient notes that she continues to have pain over her right low back 80% with numbness and tingling into her bilateral feet as well as bilateral thigh aches and pains 20%. Her knees feel better since she had cortisone injection with Dr Godfrey. Her pain is worse with walking and improved with sitting. Patient denies any physical therapy as she is waiting on the [place]. She denies any recent visits with Dr Natarajan. She takes norco 10/325mg BID managed by Dr. Robledo for the past year. She has stable urinary urgency. She does have a pain stimulator that she does not use. She is getting a brace for her left foot. She has factor V leiden deficiency and has had a DVT in the past. Nothing recently. 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 She has DM with peripheral neuropathy. She has anxiety and depression. She denies nicotine use. ROS Const Reports system reviewed and no additional complaints, except as docu Eyes Reports system reviewed and no additional complaints, except as docu ENT Reports system reviewed and no additional complaints, except as docu Card Reports system reviewed and no additional complaints, except as docu Resp Reports system reviewed and no additional complaints, except as docu GI Reports system reviewed and no additional complaints, except as docu Reports system reviewed and no additional complaints, except as docu Musc Reports back pain, Reports muscle weakness, Reports radiating pain into limb Skin/Breast Reports system reviewed and no additional complaints, except as docu Neuro Yes system reviewed and no additional complaints, except as docu Psych Reports system reviewed and no additional complaints, except as docu Endo Reports system reviewed and no additional complaints, except as docu Ortho Exam Spine Neuro: Yes Lewis's (positive bilaterally) and Straight Leg Raise (negative bilaterally) General: alert, oriented x3 Skin: Yes dysraphism (none) Capillary Refill <2sec: Yes Gait: normal gait, other (heel and toe stand) Motor: strength 5/5 throughout Sensory Exam: other (decreased in bilateral feet) DTR's: Rt Triceps: 2+, Lt Triceps: 2+, Rt Biceps: 2+, Lt Biceps: 2+, Rt Brachioradialis: 2+, Lt Brachioradialis: 2+, Rt Patellar: 2+, Lt Patellar: 2+, Rt Ankle: 2+, Lt Ankle: 2+ SPINE TESTING CERVICAL THORACIC LUMBAR SLR: Negative Musculoskeletal General: Yes normal gait Thoracic/Lumbar Spine: pain with thoraco-lumbar ROM (worse with lumbar extension than flexion), thoraco-lumbar ROM limited, paraspinal tenderness Strength 0=absent - 5=normal R Hip Flexor (L1-3): 5, L Hip Flexor (L1-3): 5, R Quadriceps (L2-4): 5, L Quadriceps (L2-4): 5, R Anterior Tibialis (L4-5): 5, L Anterior Tibialis (L4-5): 5, R Hamstrings (L5-S1): 5, L Hamstrings (L5-S1): 5, GS (S1): 5, L GS (S1): 5, R Peroneals (S1): 5, L Peroneals (S1): 5 Details: neutral sagittal balance coronally balanced Assessment AND Plan Problems 1. Other secondary scoliosis, thoracolumbar region M41.55 2. Spinal stenosis, lumbar region with neurogenic claudication M48.062 Plan Imaging: XR scoliosis 05/19/2018 reveals diffuse spondylosis with degenerative scoliosis CT cervical and lumbar myelogram reveals diffuse spondylosis of the cervical spine without severe central stenosis. CT lumbar spine reveals diffuse spondylosis with L2-L3 and L3-L4 central stenosis, scoliosis, right L5-S1 disc osteophyte complex and L4-S1 laminectomy I/R/P: 1. back pain 2. bilateral leg ache 3. history of lumbar laminectomy, elsewhere 3. bilateral knee pain, s/p injections 4. SCS 5. factor V leiden 6. IGA Ms. Olivre presents with multilevel lumbar spinal stenosis with degenerative scoliosis. Chris back pain is now greater than her leg discomfort. She has not started physical therapy. Discussed multilevel lumbar decompression with [id number] instrumented fusion, possible interbody fusion, allograft and autograft. She would need a DEXA, ca, vit D work up if she decides to pursue surgery. She will start physical therapy. Follow up in 4-6 weeks or sooner if issues arise. Plan of care discussed. All questions answered. She is in understanding. Coding Level of Care Code Off vis,est,level 4 Diagnoses Other secondary scoliosis, thoracolumbar region M41.55 Scoliosis type: other secondary scoliosis Spinal region: thoracolumbar Spinal stenosis, lumbar region with neurogenic claudication M48.062 08/05/18 1708 <Electronically signed by Nereida Jones MD> Date Nereida Jones MD Cosigner Signature: Date (if applicable) CC: Scott Robledo DO SPINE CERVICAL Observed: 06/26/2018 Status: F Source: [place] WITHOUT CONTRAS 1:07 PM [facility] REPOSITORY [facility] Imaging Services [address] [place] [address] Spine Cervical without Contras MR#: [id number] Acct: [id number] Name: DEBBIE OLIVER Rep #: [id number] : 1955 F 62 From: Pola Archuleta MD PCP: Scott Robledo DO Status: REG CLI Study: Spine Cervical without Contras Date of Exam: 06/26/18 Exam# [id number] Ordering Dr: Nereida Jones MD STUDY: CT CERVICAL SPINE WITH INTRATHECAL CONTRAST (CERVICAL CT MYELOGRAM) REASON FOR EXAM: Female, 62 years old. Chronic back pain. RADIATION DOSAGE (If Supplied By Facility): CTDIvol = ( 27.11 ) mGy, DLP = ( 566.96 ) mGycm TECHNIQUE: Transaxial images were obtained following intrathecal administration of 15 ml of Isovue-M 300 contrast material, performed by Dr. Archuleta. Please refer to this physicians technical notes for procedural details. Coronal and sagittal reconstructions were obtained. Individualized dose optimization techniques were used for this CT. Injection Information: 15 mL of Isovue-M 300. COMPARISON: None. FINDINGS: Normal craniovertebral junction. There are degenerative changes of the anterior atlantoaxial articulation. Normal odontoid process. Normal cervical lordosis. Normal vertebral bodies and posterior osseous elements. C2-3: Mild degree of right lateral disc bulge at the C2-C3 level causes minimal deformity of the thecal sac on the right side. No compromise of the exiting nerve roots is seen. C3-4: Moderate degree of disc space narrowing. Uncal vertebral arthrosis and facet joint osteoarthritis worse on the right side. Mild diffuse posterior disc bulge causing deformity of the anterior aspect of the thecal sac. C4-5: Moderate degree of disc space narrowing. Spondylosis anterior and posterior. This is worse on the posterior aspect of the right side of the C5 vertebra causing minimal narrowing of the intervertebral foramen at that site. Mild degree of central canal stenosis due to diffuse posterior disc bulge. C5-6: Mild degree of disc space narrowing. Spondylosis. Uncovertebral arthrosis. Narrowing of the right intervertebral foramen due to the posterior spondylosis and uncovertebral arthrosis. C6-7: Mild degree of disc space narrowing. Anterior spondylosis. No demonstrated soft tissue abnormality. CT/Spine Cervical without Contras IMPRESSION: Multiple findings as discussed above. Electronically Signed: Pola Archuleta MD at 15:45 EDT Tel [phone], Service support , CC: Nereida Jones MD; Scott Robledo DO Poultry Farmer: Signed SPINE LUMBAR WITHOUT Observed: 06/26/2018 Status: F Source: [place] CONTRAST 1:07 PM [facility] REPOSITORY [facility] Imaging Services [address] [place] [address] Spine Lumbar without Contrast MR#: [id number] Acct: [id number] Name: DEBBIE OLIVER Rep #: [id number] : 1955 F 62 From: Pola Archuleta MD PCP: Scott Robledo DO Status: REG CLI Study: Spine Lumbar without Contrast Date of Exam: 06/26/18 Exam# [id number] Ordering Dr: Nereida Jones MD STUDY: CT LUMBAR SPINE WITH INTRATHECAL CONTRAST (LUMBAR CT MYELOGRAM) REASON FOR EXAM: Female, 62 years old. Chronic low back pain. Stimulator device placement. RADIATION DOSAGE (If Supplied By Facility): CTDIvol = ( 39.15 ) mGy, DLP = ( 1235.31 ) mGycm TECHNIQUE: Transaxial images were obtained from the L1 vertebra through the S1 level, following intrathecal administration of 15 ml of Isovue-M 300 contrast material, performed by Dr. Archuleta. Please refer to this physicians technical notes for procedural details. Coronal and sagittal reconstructions were obtained. Individualized dose optimization techniques were used for this CT. COMPARISON: None. FINDINGS: Normal lumbar lordosis. There is a levo-scoliosis of the lumbar spine. Multilevel spondylosis. Approximately 50% loss of height of the superior endplate of the L3 vertebrae. There is dependent layering of contrast material in the distal thecal sac. The conus medullaris terminates in a normal position at the T12-L1 level. There is no demonstrated cauda equina nerve root abnormality or intraspinal mass. L1-2: Marked degree of disc space narrowing and disc degeneration. Spondylosis. Minimal retrolisthesis of L1 on L2. Moderate degree of the right paracentral disc herniation and spinal stenosis. Spinal L2-3: Marked degree of disc space narrowing and degeneration. Spondylosis. Facet joint osteoarthritis. Marked degree of a spinal stenosis due to a combination of facet joint osteoarthritis as well as hypertrophy of the ligamenta flava and the posterior central disc herniation. L3-4: 50% loss of height of the superior endplate of the L3 vertebrae. Marked degree of spinal stenosis caused by combination of hypertrophy of the ligamenta flava and diffuse posterior disc bulge. L4-5: Marked degree of disc space narrowing disc degeneration. Mild degree of anterior listhesis of L4 on L5. I suspect diffuse posterior disc herniation causing deformity of thecal sac and spinal stenosis. L5-S1: Marked degree of disc space narrowing. Large posterior osteophyte worse on the right side causing severe spinal stenosis. There are degenerative changes of the bilateral sacroiliac joints. Normal visualized paraspinous soft tissue structures. CT/Spine Lumbar without Contrast IMPRESSION: Multilevel spinal stenosis as described. Electronically Signed: Pola Archuleta MD at 15:52 EDT Tel [phone], Service support , CC: Nereida Jones MD; Scott Robledo DO Poultry Farmer: Signed MYELOGRAPHY 2/> SPINE Observed: 06/26/2018 Status: F Source: [facility] 12:19 PM [facility] REPOSITORY [facility] Imaging Services [address] [place] [address] Myelography 2/> Spine Regions MR#: [id number] Acct: [id number] Name: DEBBIE OLIVER Rep #: [id number] : 1955 F 62 From: Pola Archuleta MD PCP: Scott Robledo DO Status: REG CLI Study: Myelography 2/> Spine Regions Date of Exam: 06/26/18 Exam# [id number] Ordering Dr: Nereida Jones MD PROCEDURE: LUMBAR MYELOGRAM DATE OF EXAMINATION: June 26, 2018. INDICATION: Female, 62 years old. Low back pain. PHYSICIAN: Pola Archuleta M.D. CONSENT: The patient's history and physical findings were reviewed. The lumbar myelogram procedure was discussed with the patient prior to signing a consent. SEDATION: Local anesthesia with 3 mL of 1% lidocaine was used. FLUOROSCOPY TIME (if supplied): (1 minute) minutes/seconds Injection Information: 15 cc of Isovue-M 300. Number of images obtained: TECHNIQUE: Digital fluoroscopy was used to identify a safe approach for the lumbar myelogram. The back was prepped and draped in usual fashion. Local anesthesia was utilized. Under fluoroscopic guidance a 22- gauge spinal needle was inserted into the spinal canal at the L4-5 level. Clear spinal fluid was seen. 15 mL of Isovue 300 M was injected into the spinal canal. Multilevel spinal stenosis worse at the L2-L3, L3-L4 as well as L4-L5 levels. A CT scan will follow. Dextroscoliosis. IMPRESSION: Multilevel lumbar spinal stenosis. A CT scan will follow. Electronically Signed: Pola Archuleta MD at 13:42 EDT Tel [phone], Service support , PROCEDURE: LUMBAR MYELOGRAM DATE OF EXAMINATION: June 26, 2018. INDICATION: Female, 62 years old. Neck pain. PHYSICIAN: Pola Archuleta M.D. CONSENT: The patient's history and physical findings were reviewed. The lumbar myelogram procedure was discussed with the patient prior to signing a consent. SEDATION: Local anesthesia with 3 mL of 1% lidocaine was used. FLUOROSCOPY TIME (if supplied): (45 seconds) minutes/seconds Injection Information: 15 mL of Isovue-M 300 Number of images obtained: TECHNIQUE: Digital fluoroscopy was used to identify a safe approach for the lumbar myelogram. The back was prepped and draped in usual fashion. Local anesthesia was utilized. Under fluoroscopic guidance a 22- gauge spinal needle was inserted into the spinal canal at the L4-5 level. Clear spinal fluid was seen .. 15 mL of Isovue 300 M was injected into the spinal canal. Following this, contrast was advanced to the cervical level. No radiographic abnormality is seen. A CT scan will follow. RAD/Myelography 2/> Spine Regions IMPRESSION: Normal cervical myelogram. A CT scan will follow. Electronically Signed: Pola Archuleta MD at 13:44 EDT Tel [phone], Service support , CC: Nereida Jones MD; Scott Robledo DO Poultry Farmer: Signed PROTHROMBIN TIME W/INR Collected: 06/26/2018 Status: F Source: [place] 11:18 AM [facility] REPOSITORY TYPE CODE TESTS RESULT OUT OF RANGE REFERENCE UNITS LAB L300.4150 11.7-14.9 SECONDS High PROTIME 17.6 LAB L300.4200 Normal INR 1.4 Performed By: #### L300.3900 #### [facility] [address] [place], [address] CBC W/DIFF, AUTOMATED Collected: 06/22/2018 Status: F Source: [place] 9:56 AM [facility] REPOSITORY TYPE CODE TESTS RESULT OUT OF RANGE REFERENCE UNITS LAB L100.1000 4.4-11.0 K/mm3 Normal WBC 10.3 LAB L100.1200 4.2-5.4 M/mm3 Low RBC 3.94 LAB L100.1300 12.0-15.0 g/dl Normal HGB 12.5 LAB L100.1400 37-47 % Normal HCT 37.6 LAB L100.1500 81-99 fL Normal MCV 95.4 LAB L100.1600 27.0-32.0 pg Normal MCH 31.7 LAB L100.1700 32-36 g/gl Normal MCHC 33.2 LAB L100.1810 11.6-14.6 % Normal RDW CV 13.6 LAB L100.1820 35.1-43.9 fl High RDW SD 45.8 LAB L100.1900 150-450 K/mm3 Normal PLT 305 LAB L100.2000 6.2-12.0 fl Normal MPV 9.4 LAB L100.2100 47-70 % High NEUT% 70.7 LAB L100.2200 19-41 % Normal LY% 20.2 LAB L100.2300 0-10 % Normal MONO% 7.7 LAB L100.2400 0-5 % Normal EO% 1.0 LAB L100.2500 0-1 % Normal BASO% 0.1 LAB L100.2550 0.0-0.9 % Normal IM GRAN % 0.300 Result Comment: IG% - Immature Granulocytes (promyelocytes, myelocytes and metamyelocytes) > 1% indicates that a LEFT SHIFT is Present. LAB L100.2620 2.0-7.7 X10 3/uL Normal Absolute Neut 7.3 LAB L100.2720 0.83-4.51 X10 3/ul Normal Absolute Lymph 2.08 Performed By: #### L100.0100 #### [facility] [address] [place] [place], [address] BASIC METABOLIC Collected: 06/22/2018 Status: F Source: [place] PROFILE (BMP) 9:56 AM [facility] REPOSITORY TYPE CODE TESTS RESULT OUT OF RANGE REFERENCE UNITS LAB L501.0100 74-106 mg/dL Normal GLU 106 Result Comment: Fasting Glucose result from 100 to 125 mg/dL suggests IMPAIRED HOMEOSTASIS per A.D.A. criteria. Please note revised GLUCOSE reference range effective 2017. LAB L501.1000 7-18 mg/dL High BUN 43 LAB L501.1100 0.55-1.02 mg/dL High CREAT,SERUM 2.40 Result Comment: The validity of the calculated GFR AND GFRAA in patients over 70 years has not been determined. Clinical correlation is essential. LAB L501.1110 >60 mL/min Low EST GFR 22 Result Comment: Non- GFR Calc LAB L501.1115 >60 mL/min Low EST GFR - AA 26 Result Comment: GFR Calc LAB L501.1300 10-20 RATIO Normal BUN/CRE 17.9 LAB L501.2200 8.5-10.1 mg/dL CA Normal 8.8 LAB L501.5300 136-145 mmol/L NA Normal 141 LAB L501.5600 3.5-5.1 mmol/L K Normal 4.8 LAB L501.5900 98-107 mmol/L High CL 108 LAB L501.6100 21.0-32.0 mmol/L Low CO2 20.0 LAB L501.6200 5-15 Normal GAP 13 Performed By: #### L500.2500, L500.4100, L501.1400 #### [facility] [address] [place], [address] LIPID PROFILE Collected: 06/22/2018 Status: F Source: [place] 9:56 AM [facility] REPOSITORY TYPE CODE TESTS RESULT OUT OF RANGE REFERENCE UNITS LAB L501.4900 200 mg/dL High CHOL 286 Result Comment: <200 mg/dL Desirable 200-240 mg/dL Borderline >240 mg/dL High Risk LAB L501.5000 mg/dL High TRIG 231 Result Comment: The drugs N-Acetylcysteine and Metamizole may falsely depress this assay. Serum Triglycerides Reference Interval Normal <150 mg/dL Borderline high 150 - 199 mg/dL High 200 - 499 mg/dL Very High > or = 500 mg/dL LAB L501.6400 mg/dL Normal HDL 44 Result Comment: The drugs N-Acetylcysteine and Metamizole may falsely depress this assay. Reference Range HDL <40 mg/dL Low HDL Cholesterol HDL >or= 60 mg/dL High HDL Cholesterol LAB L501.6500 0-130 mg/dL High LDL 196 LAB L501.6600 5-40 mg/dL High VLDL 46 Performed By: #### L500.2500, L500.4100, L501.1400 #### [facility] [address] [place], [place], [address] URIC ACID Collected: 06/22/2018 Status: F Source: [place] 9:56 AM [facility] REPOSITORY TYPE CODE TESTS RESULT OUT OF RANGE REFERENCE UNITS LAB L501.1400 2.6-6.0 mg/dL Normal URIC 4.8 Result Comment: The drugs N-Acetylcysteine and Metamizole may falsely depress this assay. Performed By: #### L500.2500, L500.4100, L501.1400 #### [facility] [address] [place], [place], [address] HEMOGLOBIN A1C Collected: 06/22/2018 Status: F Source: [place] 9:56 AM [facility] REPOSITORY TYPE CODE TESTS RESULT OUT OF RANGE REFERENCE UNITS LAB L501.9985 4.2-6.3 % Normal HGB A1C 5.8 Performed By: #### L501.9985 #### [facility] [address] [place], [place], [address] ORTHOPEDIC VISIT Observed: 06/11/2018 Status: F Source: [place] REPORT 3:23 PM [facility] REPOSITORY [facility] [address] [place] [address] 5 [place] [address] OFFICE VISIT Date of Service: 06/11/18 MR#: [id number] Acct: [id number] Name: DEBBIE OLIVER Rep #: [id number] : 1955 Provider: Sweta Godfrey DO Age/Sex: 62/F Location: [facility] Status: Signed Intake Intake Visit Reasons: BILAT KNEE PAIN Is patient in pain?: Yes Allergies No Known Allergies Allergy (Verified 06/11/18 12:53) Medications allopurinol 100 mg tablet 100 mg PO QDAY 05/19/18 [History Confirmed 05/19/18] cholecalciferol (vitamin D3) 1,000 unit capsule 1,000 unit PO QDAY 05/19/18 [History Confirmed 05/19/18] citalopram 40 mg tablet 20 mg PO QDAY 05/19/18 [History Confirmed 05/19/18] ferrous sulfate 325 mg (65 mg iron) tablet 325 mg PO QDAY tab 05/19/18 [History Confirmed 05/19/18] hydrocodone 10 mg-acetaminophen 325 mg tablet 1 tab PO Q6H PRN 05/19/18 [History Confirmed 05/19/18] lorazepam 1 mg tablet 1 mg PO QHS PRN 05/19/18 [History Confirmed 05/19/18] metoprolol tartrate 25 mg tablet 25 mg PO BID 05/19/18 [History Confirmed 05/19/18] omega-3 fatty acids 1,000 mg capsule 1,000 mg PO QDAY 05/19/18 [History Confirmed 05/19/18] oxybutynin chloride ER 10 mg tablet,extended release 24 hr 10 mg PO QDAY 05/19/18 [History Confirmed 05/19/18] vitamin B12 500 mcg-folic acid 400 mcg tablet 1 tab PO QDAY 05/19/18 [History Confirmed 05/19/18] warfarin 7.5 mg tablet 7.5 mg PO QDAY 05/19/18 [History Confirmed 05/19/18] PFSH Medical History Diabetes (Acute) Factor V Leiden (Acute) Kidney disease (Acute) Hypertension (Chronic) Surgical History h/o back surgery (Acute) h/o nerve stimulator (Acute) Family History Father Hypertension Diabetes Factor V Leiden Heart disease Mother Factor V Leiden Sister Cancer Factor V Leiden HPI BILAT KNEE PAIN: Details: DEBBIE OLIVER is a 62 year old F here today referred by Dr Jones for bilateral knee pain, right greater than left. Patient has had knee pain for about a month or 2. She denies any known injury. Patient has pain over her medial and lateral knee. Patient has a history of gout but it has been in her feet. Patient notes that she has knee instability and she will fall due to her knees giving out. She has crunching with ambulating stairs. She has knee swelling. She denies any physical therapy. Patient denies any injections. She has an OTC knee brace which is not helpful. Patient had knee xrays which are here for review. Patient takes norco for pain. She ices her knees which is helpful. ROS Const Reports system reviewed and no additional complaints, except as docu Eyes Reports system reviewed and no additional complaints, except as docu ENT Reports system reviewed and no additional complaints, except as docu Card Reports system reviewed and no additional complaints, except as docu Resp Reports system reviewed and no additional complaints, except as docu GI Reports system reviewed and no additional complaints, except as docu Reports system reviewed and no additional complaints, except as docu Musc Reports joint pain, Reports joint swelling Skin/Breast Reports system reviewed and no additional complaints, except as docu Neuro Yes system reviewed and no additional complaints, except as docu Psych Reports system reviewed and no additional complaints, except as docu Endo Reports system reviewed and no additional complaints, except as docu Ortho Exam Right Knee Skin/Wound: Yes CDI Contralateral Normal: No Swelling: No Homans Sign: No Knee ROM: Yes ROM-Extension -20 to 0, Yes ROM-Flexion 0-140 (110) Examination: Yes Med jt line tenderness, Yes Crepitus Left Knee Skin/Wound: Yes CDI Contralateral Normal: No Swelling: No Homans Sign: No Knee ROM: Yes ROM-Extension -20 to 0, Yes ROM-Flexion 0-140 (110) Examination: Yes med jt line tenderness, Yes Crepitus Office Procedures Ortho Injections Injections Yes Knee Bilateral Details: Obtained consent for injection. Under sterile conditions, injected the patients right and left knee with a 10cc cocktail of 8cc bupivacaine and 2cc kenalog. The patient tolerated the injection well without any noted complication. Patient should call our office if redness develops, pain worsens or if they have any concerns. Office Meds Kenalog Performing Provider: Sweta Godfrey DO Administered by: Sweta Godfrey DO on 06/11/18 13:14 Dose Route Admin Location Lot Number Expiration DateNDC Manufacturing Quality Engineer 80 mg Intra-Articularbilateral [id number] 03/10/19 5164-7176-86 [facility] Assessment AND Plan 1. Primary osteoarthritis of both knees M17.0 Plan Personally reviewed the patient's medical history, medications, surgeries and recent exams if available. X-rays were reviewed. There is no obvious fracture, dislocation, or lucency noted, she has OA bilaterally. Educated the patient on the anatomy of the knees and etiology of her pain, she has severe tricompartmental OA of bilateral knees. On exam she also has subtalar fusion of the right ankle and surgical history on the left ankle. Her treatment options are do nothing, steroid injections or referral to Dr Alegre for TKA, explained that some of her ankle issues exacerbate the knee OA. Instructed to watch for increased sugars over next 48hrs. Also gave Dr King info for possible [facility] ankle brace. Follow up prn or sooner if pain, swelling, numbness or associated symptoms, or concerns develop. All questions answered. Patient in agreement of plan. Orders Orders: Medications Discontinued: Kenalog (triamcinolone acetonide) Disco80 mg (8 mL) Intra- Articular ONCE NS Qasim Lacie ntinued Reason: Office Medication has bee n Documented as given Coding Level of Care Code Off vis,est,level 4 Diagnoses Primary osteoarthritis of both knees M17.0 Osteoarthritis type: primary Additional Codes tax compliance representative.knee ([id number]) 06/11/18 1523 <Electronically signed by Sweta Godfrey DO> Date Sweta Godfrey DO [place] Signature: Date (if applicable) CC: Nereida Jones MD ORTHOPEDIC VISIT Observed: 05/23/2018 Status: F Source: [place] REPORT 10:32 PM [facility] REPOSITORY [facility] [address] [place] [address] OFFICE VISIT Date of Service: 05/19/18 MR#: [id number] Acct: [id number] Name: DEBBIE OLIVER Rep #: [id number] : 1955 Provider: Nereida Jones MD Age/Sex: 62/F Location: [facility] Status: Signed Intake Vital Signs05/19/18 Height 5 ft 7 in 05/19/18 Weight: 222 lb 05/19/18 Body Mass Index (BMI) 34.7 Intake Visit Reasons: LOW BACK PAIN Is patient in pain?: Yes Pain scale (1-10): 10 Allergies No Known Allergies Allergy (Unverified 05/19/18 10:14) Medications allopurinol 100 mg tablet 100 mg PO QDAY 05/19/18 [History Confirmed 05/19/18] cholecalciferol (vitamin D3) 1,000 unit capsule 1,000 unit PO QDAY 05/19/18 [History Confirmed 05/19/18] citalopram 40 mg tablet 20 mg PO QDAY 05/19/18 [History Confirmed 05/19/18] ferrous sulfate 325 mg (65 mg iron) tablet 325 mg PO QDAY tab 05/19/18 [History Confirmed 05/19/18] hydrocodone 10 mg-acetaminophen 325 mg tablet 1 tab PO Q6H PRN 05/19/18 [History Confirmed 05/19/18] lorazepam 1 mg tablet 1 mg PO QHS PRN 05/19/18 [History Confirmed 05/19/18] metoprolol tartrate 25 mg tablet 25 mg PO BID 05/19/18 [History Confirmed 05/19/18] omega-3 fatty acids 1,000 mg capsule 1,000 mg PO QDAY 05/19/18 [History Confirmed 05/19/18] oxybutynin chloride ER 10 mg tablet,extended release 24 hr 10 mg PO QDAY 05/19/18 [History Confirmed 05/19/18] vitamin B12 500 mcg-folic acid 400 mcg tablet 1 tab PO QDAY 05/19/18 [History Confirmed 05/19/18] warfarin 7.5 mg tablet 7.5 mg PO QDAY 05/19/18 [History Confirmed 05/19/18] PFSH Medical History Diabetes (Acute) Factor V Leiden (Acute) Kidney disease (Acute) Hypertension (Chronic) Surgical History h/o back surgery (Acute) h/o nerve stimulator (Acute) Family History Father Hypertension Diabetes Factor V Leiden Heart disease Mother Factor V Leiden Sister Cancer Factor V Leiden HPI LOW BACK PAIN: Details: DEBBIE OLIVER is a 62 year old RHD F here today referred by Dr Robledo for low back pain 20% for years and right buttock, posterior thigh, anterior knee and medial calf greater than left 80% since 11/2017. She notes that she has had back pain for many years. Patient had scoliosis surgery in 1979 and another surgery to remove scar tissue in 2003. She was feeling good and not having pain following her last surgery until a few years ago. No surgical records available. Her pain is worse with walking and improved with sitting. She takes norco 10/325mg BID for about a year managed by Dr. Robledo. She also takes ativan. She has had a caudal AIME in 07/[address] Natarajan without improvement. She has urinary urgency. She uses a cane for leg pain. She denies difficulty with hand dexterity. She denies perineal paresthesias. She has had physical therapy last in 11/2017, no aqua therapy. She does a home exercise program. She saw a chiropractor for 1 visit and had an adjustment which did not help her. Patient sees Dr Natarajan. Patient had a pain stimulator implanted in 2011 without relief. [place] was [place]. it is not managed by anyone at this time per patient. She has factor V leiden deficiency has had a DVT. 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 She has DM with neuropathy. She has anxiety and depression. She is disabled. She does not smoke. ROS Const Reports system reviewed and no additional complaints, except as docu Eyes Reports system reviewed and no additional complaints, except as docu ENT Reports system reviewed and no additional complaints, except as docu Card Reports system reviewed and no additional complaints, except as docu Resp Reports system reviewed and no additional complaints, except as docu GI Reports system reviewed and no additional complaints, except as docu Reports system reviewed and no additional complaints, except as docu Musc Reports back pain, Reports radiating pain into limb, Reports stiffness, Reports muscle weakness Skin/Breast Reports system reviewed and no additional complaints, except as docu Neuro Yes system reviewed and no additional complaints, except as docu Psych Reports system reviewed and no additional complaints, except as docu Endo Reports system reviewed and no additional complaints, except as docu Ortho Exam Spine Neuro: Yes Clonus (negative bilaterally), Babinski (downgoing bilaterally), Lewis's (postiive bilaterally) and Straight Leg Raise (negative bilaterally) General: alert, oriented x3 Skin: Yes healed (midline and left buttock region) Capillary Refill <2sec: Yes Palpable Pulses: 1+ dp and pt pulses Gait: antalgic, other (heel and toe stand. unable to tandem. positive romberg due to neuropathy) Motor: strength 5/5 throughout Sensory Exam: other (decreased sensation in bilateral feet ) DTR's: Rt Triceps: 2+, Lt Triceps: 2+, Rt Biceps: 2+, Lt Biceps: 2+, Rt Brachioradialis: 2+, Lt Brachioradialis: 2+, Rt Patellar: 2+, Lt Patellar: 2+, Rt Ankle: 2+, Lt Ankle: 2+ Plantar Reflexes: Downgoing: bilateral Details: tenderness over the left pes anserine that reproduces her left anterior knee pain pain with left knee range of motion SPINE TESTING CERVICAL THORACIC LUMBAR SLR: Negative Musculoskeletal General: Yes normal posture Cervical Spine: cervical ROM normal Thoracic/Lumbar Spine: pain with thoraco-lumbar ROM, thoraco- lumbar ROM limited, paraspinal tenderness Strength 0=absent - 5=normal Deltoid R (C5): 5, Deltoid L (C5): 5, R Bicep (C5-6): 5, L Bicep (C5-6): 5, R Wrist Extensor (C6): 5, L Wrist Extensor (C6): 5, R Tricep (C7): 5, L Tricep (C7): 5, R Finger Flexors (C8): 5, L Finger Flexors (C8): 5, R First Dorsal Interossei (C8): 5, L First Dorsal Interossei (C8): 5, R Hip Flexor (L1-3): 5, L Hip Flexor (L1-3): 5, R Quadriceps (L2-4): 5, L Quadriceps (L2-4): 5, R Anterior Tibialis (L4-5): 5, L Anterior Tibialis (L4- 5): 5, R Hamstrings (L5-S1): 5, L Hamstrings (L5-S1): 5, GS (S1): 5, L GS (S1): 5, R Peroneals (S1): 5, L Peroneals (S1): 5 Assessment AND Plan Problems 1. Chronic right-sided low back pain with right-sided sciatica M54.41; G89.29 2. Chronic pain of right knee M25.561; G89.29 Plan Imaging: XR lumbar spine 05/19/2018 reveals diffuse spondylosis with degenerative scoliosis and SCS XR scoliosis 05/19/2018 reveals diffuse spondylosis with degenerative scoliosis CT lumbar spine CD 11/14/2017 reveals diffuse spondylosis with L4 and L5 laminectomy defect I/R/P: 1. back pain 2. history of lumbar surgery, elsewhere, unclear what 3. left knee pain, pes anserine bursitis, right greater than left knee pain 4. SCS 5. factor V leiden 6. IGA Ms. Oliver presents with back pain and right leg pain greater than left as well as left anterior knee pain. Recommend XR knee and referral to Dr. Godfrey for injection. Recommend CT cervical and lumbar myelogram to assess for neural compression. She has positive lewis's bilaterally. Recommend aqua therapy for her back and neck as well as gait training. Follow up after above or sooner if issues arise. Plan of care discussed. All questions answered. She is in understanding. Orders Orders: Coding Level of Care Code Off vis,new,level 4 Diagnoses Chronic right-sided low back pain with right-sided sciatica M54.41; G89.29 Back pain location: low back pain Chronicity: chronic Back pain laterality: right Sciatica presence: with sciatica Sciatica laterality: sciatica of right side Chronic pain of right knee M25.561; G89.29 Chronicity: chronic 05/23/182 <Electronically signed by Nereida Jones MD> Date Nereida Jones MD Cosigner Signature: Date (if applicable) CC: Scott Robledo DO KNEE 4 OR MORE Observed: 05/19/2018 Status: F Source: [place] VIEWS 10:33 AM [facility] REPOSITORY [facility] Imaging Services [address] [place] [address] Knee 4 or More Views MR#: [id number] Acct: [id number] Name: DEBBIE OLIVER Rep #: [id number] : 1955 F 62 From: Cabrera Arango DO PCP: Scott Robledo DO Status: REG CLI Study: Knee 4 or More Views Date of Exam: 05/19/18 Exam# [id number] Ordering Dr: Nereida Jones MD STUDY: X-RAY - RIGHT KNEE REASON FOR EXAM: Female, 62 years old. Bilateral knee pain. TECHNIQUE: 4 view(s) of the knee. COMPARISON: None. FINDINGS: Normal visualized distal femur. Normal visualized proximal tibia and fibula. Normal proximal tibiofibular articulation. There is no demonstrated destructive osseous lesion. There is moderate degenerative arthrosis of the medial femorotibial compartment with moderate joint space narrowing. There is severe degenerative arthrosis of the lateral femorotibial compartment with severe joint space narrowing. There is severe degenerative arthrosis of the patellofemoral articulation. The soft tissue structures are unremarkable. RAD/Knee 4 or More Views IMPRESSION: Degenerative changes of the right knee with small joint effusion. Electronically Signed: Cabrera Arango DO at 17:26 EDT Tel [phone], Service support , CC: Nereida Jones MD; Scott Robledo DO Poultry Farmer: Signed KNEE 4 OR MORE Observed: 05/19/2018 Status: F Source: [place] VIEWS 10:33 AM [facility] REPOSITORY [facility] Imaging Services [address] [place] [address] Knee 4 or More Views MR#: [id number] Acct: [id number] Name: DEBBIE OLIVER Rep #: [id number] : 1955 F 62 From: Cabrera Arango DO PCP: Scott Robledo DO Status: REG CLI Study: Knee 4 or More Views Date of Exam: 05/19/18 Exam# [id number] Ordering Dr: Nereida Jones MD STUDY: X-RAY - LEFT KNEE REASON FOR EXAM: Female, 62 years old. Bilateral knee pain. TECHNIQUE: 4 view(s) of the knee. COMPARISON: None. FINDINGS: Normal visualized distal femur. Normal visualized proximal tibia and fibula. Normal proximal tibiofibular articulation. There is no demonstrated destructive osseous lesion. There is a genu varus deformity. 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 There is mild degenerative arthrosis of the lateral femorotibial compartment. There is severe degenerative arthrosis of the patellofemoral articulation. 1 The soft tissue structures are unremarkable. RAD/Knee 4 or More Views IMPRESSION: Degenerative changes of the left knee. Electronically Signed: Cabrera Arango DO at 17:27 EDT Tel [phone], Service support , CC: Nereida Jones MD; Scott Robledo DO Poultry Farmer: Signed SCOLIOSIS 2 OR 3 VIEWS Observed: 05/19/2018 Status: F Source: [place] 9:49 AM [facility] REPOSITORY [facility] Imaging Services [address] [place] [address] Scoliosis 2 or 3 views MR#: [id number] Acct: [id number] Name: DEBBIE OLIVER Rep #: [id number] : 1955 F 62 From: Pola Archuleta MD PCP: Scott Robledo DO Status: REG CLI Study: Scoliosis 2 or 3 views Date of Exam: 05/19/18 Exam# [id number] Ordering Dr: Nereida Jones MD STUDY: XR SPINE ENTIRE THORACIC T LUMBAR (W SKULL, CERVICAL AND SACRAL SPINE IF PERFORMED) REASON FOR EXAM: Female, 62 years old. Chronic back pain. TECHNIQUE: Radiological exam, spine, entire thoracic and lumbar, including skull, cervical and sacral spine if performed (eg, scoliosis evaluation); 2 or 3 views. COMPARISON: None. FINDINGS: There is a 15 degree dextroscoliosis of the thoracic spine with the apex of the convexity at the T6 level. There is a 20 degree levoscoliosis scoliosis of the lumbar spine with the apex of the convexity at the level. Normal kyphosis of the thoracic spine. Normal thoracic vertebrae and endplates. There is multilevel disc space narrowing of the thoracic spine. Normal lordosis of the lumbar spine. Normal lumbar vertebrae and endplates. There is multilevel disc space narrowing of the lumbar spine. The soft tissue structures are unremarkable. RAD/Scoliosis 2 or 3 views IMPRESSION: 15 degree dextroscoliosis of the thoracic spine and 20 degrees levoscoliosis of the lumbar spine. Electronically Signed: Pola Archuleta MD at 9:16 EDT Tel [phone], Service support , CC: Nereida Jones MD; Scott Robledo DO Poultry Farmer: Signed L/S SPINE MIN 4 Observed: 05/19/2018 Status: F Source: [place] VIEWS 9:19 AM [facility] REPOSITORY [facility] Imaging Services [address] [place] [address] L/S Spine Min 4 Views MR#: [id number] Acct: [id number] Name: DEBBIE OLIVER Rep #: [id number] : 1955 F 62 From: Cabrera Arango DO PCP: Scott Robledo DO Status: REG CLI Study: L/S Spine Min 4 Views Date of Exam: 05/19/18 Exam# [id number] Ordering Dr: Nereida Jones MD STUDY: X-RAY - LUMBAR SPINE REASON FOR EXAM: Female, 62 years old. Lower back pain. TECHNIQUE: 4 view(s) of the lumbar spine were obtained. COMPARISON: Lumbar spine, February 18, 2017. FINDINGS: There is exaggeration of lumbar lordosis. There is a levoscoliosis with the convexity L2. There is anterolisthesis of L4 and L5. The remainder of the alignment is preserved. There is no change in alignment with flexion or extension. There is multilevel endplate spondylosis of the lumbar vertebrae. There is multi-level degenerative disc disease with multi-level disc space narrowing. There is a questionable compression deformity superior endplate of L3 although this may be partially secondary to the scoliosis. No marked compression is noted on the AP film. There is evidence of a muscle, stimulator as well as a sacral stimulator. RAD/L/S Spine Min 4 Views IMPRESSION: Scoliosis and degenerative changes lumbar spine. There is no major change from February 18, 2017. Electronically Signed: Cabrera Arango DO at 17:25 EDT Tel [phone], Service support , CC: Nereida Jones MD; Scott Robledo DO Poultry Farmer: Signed CBC (NO DIFF) Collected: 04/23/2018 Status: F Source: [place] CRUZ 2:30 PM [facility] REPOSITORY TYPE CODE TESTS RESULT OUT OF RANGE REFERENCE UNITS LAB CBC (NO DIFF)(LOINC ) CBC (NO DIFF) Result Comment: CBC(WITHOUT DIFFERENTIAL) LAB WBC(LOINC) 4.5 - 10.8 x 10EE3/UL WBC 7.6 LAB RBC(LOINC) 4.10 - x 10EE6/UL 5.30 RBC Low 3.19 LAB HEMOGLOBIN(LOINC 12.0 - g/dl ) 16.0 Low HEMOGLOBIN 10.1 LAB HEMATOCRIT(LOINC 34.0 - % ) 46.0 Low HEMATOCRIT 29.4 LAB MCV(LOINC) 80 - 99 fl MCV 92 LAB MCH(LOINC) 27 - 33 pg MCH 32 LAB MCHC(LOINC) 32 - 36 X10 3 MCHC 34 LAB RDW/CV(LOINC) 12.0 - % 15.6 RDW/CV High 17.3 LAB PLATELET(LOINC) 150 - 450 x10EE3/UL PLATELET 276 LAB MPV(LOINC) 6.6 - 10.5 fl MPV 7.6 Result Comment: {CB] Performed By: #### [id number] #### [place] [address] URINE CREATININE AND Collected: 04/23/2018 Status: F Source: [facility] PROTEIN RATIO 2:30 PM [facility] REPOSITORY TYPE CODE TESTS RESULT OUT OF REFERENCE UNITS RANGE LAB CREATININE mg/dl UR(LOINC) CREATININE UR 207.4 LAB URINE TOTAL 0.00 - 10.00 mg/dL PROTEIN(LOINC) URINE High TOTAL PROTEIN 46.00 LAB PC RATIO(LOINC) 0 - 10 mg/dL PC RATIO 0 Performed By: #### [id number] #### [place] [address] PROTHROMBIN TIME AND Collected: 04/23/2018 Status: F Source[facility] PM [facility] REPOSITORY TYPE CODE TESTS RESULT OUT OF REFERENCE UNITS RANGE LAB PROTHROMBIN TIME AND INR(LOINC) PROTHROMBIN TIME AND INR Result Comment: PROTHROMBIN TIME AND INR LAB PT-COUMADIN(LOINC) sec PT-COUMADIN 27.6 LAB INR(LOINC) 0.8 - 1.2 INR High 2.5 Result Comment: THE HEMOSIL THROMBOPLASTIN REAGENT USED IN THE PROTHROMBIN TIME TEST INTERACTS WITH THE DRUG CUBICIN (DAPTOMYCIN) AND WILL RESULT IN FALSELY ELEVATED PT / INR RESULTS INR INTERPRETATION INR INDICATION PREVENTION AND TREATMENT OF THROMBOEMBOLISM ASSOCIATED WITH: 2.0 - 3.0 ATRIAL FIBRILLATION, BIOPROSTHETIC HEART VALVES, PULMONARY EMBOLISM, VENOUS THROMBOSIS, SYSTEMIC EMBOLISM POST MYOCARDIAL INFARCTION 2.5 - 3.5 MECHANICAL HEART VALVES Performed By: #### [id number] #### [place] [id number] RENAL FUNCTION PANEL Collected: 04/23/2018 Status: F Source: [facility] 2:30 PM [facility] REPOSITORY TYPE CODE TESTS RESULT OUT OF REFERENCE UNITS RANGE LAB RENAL FUNCTION PANEL(LOINC) RENAL FUNCTION PANEL Result Comment: RENAL FUNCTION PANEL LAB SODIUM(LOINC) 136 - 145 mmol/l SODIUM Low 134 LAB POTASSIUM(LOINC) 3.5 - 5.1 mmol/L POTASSIUM 3.9 LAB CHLORIDE(LOINC) 98 - 107 mmol/L CHLORIDE High 110 LAB GLUCOSE(LOINC) 74 - 106 mg/dl GLUCOSE High 202 LAB BUN(LOINC) 6 - 20 mg/dl BUN High 23 LAB CREATININE(LOINC) 0.6 - 1.2 mg/dl High CREATININE 2.2 LAB CALCIUM(LOINC) 8.6 - mg/dl 10.2 CALCIUM 8.9 LAB ALBUMIN(LOINC) 3.4 - 4.8 g/dL ALBUMIN 3.8 LAB B/C RATIO(LOINC) 0 - 30 ratio B/C RATIO 10 LAB CO2(LOINC) 21.0 - mmol/L 31.0 CO2 Low 20.1 LAB PHOSPHORUS(LOINC) 2.7 - 4.5 mg/dl PHOSPHORUS 3.7 Performed By: #### [id number] #### [place] [id number] FERRITIN Collected: 04/23/2018 Status: F Source: [facility] 2:30 PM [facility] REPOSITORY TYPE CODE TESTS RESULT OUT OF REFERENCE UNITS RANGE LAB FERRITIN(LO 10 - 291 ng/mL INC) FERRITIN 201 Performed By: #### [id number] #### [place] [id number] IRON AND UIBC Collected: 04/23/2018 Status: F Source: [facility] 2:30 PM [facility] REPOSITORY TYPE CODE TESTS RESULT OUT OF RANGE REFERENCE UNITS LAB IRON(LOINC) 50 - 170 ug/dl Low IRON 44 LAB UIBC(LOINC) 155 - 355 ug/dL UIBC 245 LAB TIBC(LOINC) 250 - 450 ug/dl TIBC 289 LAB Sat%(LOINC) 20 - 50 % Low Sat% 15 Performed By: #### [id number] #### [facility],[address] [place] [address] URIC ACID Collected: 04/23/2018 Status: F Source: [place] 2:30 PM [facility] REPOSITORY TYPE CODE TESTS RESULT OUT OF RANGE REFERENCE UNITS LAB URIC 2.3 - 6.6 mg/dl ACID(LOINC) URIC ACID 6.2 Performed By: #### [id number] #### [facility],[address] [place] [address] PTH, INTACT (W/OUT Collected: 04/23/2018 Status: F Source: [facility] CALCIUM) [QUEST] 2:30 PM [facility] REPOSITORY TYPE CODE TESTS RESULT OUT OF REFERENCE UNITS RANGE LAB PTH, INTACT (W/OUT CALCIUM) [QUEST](LOINC PTH, ) INTACT (W/OUT CALCIUM) [QUEST] Result Comment: _PTH, INTACT (WITHOUT CALCIUM)_ PTH, INTACT WITHOUT CALCIUM Reported: 04/27/2018 13:43 Status=F TEST RESULT FLAG RANGE UNITS PARATHYROID 95 H 14-64 pg/mL 04/27/[id number].[id number] .[id number] HORMONE,INTACT Interpretive Guide Intact PTH Calcium Normal Parathyroid Normal Normal Hypoparathyroidism Low or Low Normal Low Hyperparathyroidism Primary Normal or High High Secondary High Normal or Low Tertiary High High Non-Parathyroid Hypercalcemia Low or Low Normal High For additional information, please refer to [email or web address] Test Performed by [facility], [facility], [address] [place] [address] Billy Barrett M.D., Ph.D., Director of Laboratories , CLIA [id number] Performed By: #### [id number] #### [facility],[address] [place], [place] [address] CBC W/DIFF, AUTOMATED Collected: 02/13/2018 Status: F Source: [place] 11:17 AM [facility] REPOSITORY Order Comment: cc: FAX TO DR. Danni KENT [phone] PER PT. TYPE CODE TESTS RESULT OUT OF RANGE REFERENCE UNITS LAB L100.1000 4.4-11.0 K/mm3 Normal WBC 4.6 LAB L100.1200 4.2-5.4 M/mm3 Low RBC 3.54 LAB L100.1300 12.0-15.0 g/dl Low HGB 10.4 LAB L100.1400 37-47 % Low HCT 33.5 LAB L100.1500 81-99 fL Normal MCV 94.6 LAB L100.1600 27.0-32.0 pg Normal MCH 29.4 LAB L100.1700 32-36 g/gl Low MCHC 31.0 LAB L100.1810 11.6-14.6 % High RDW CV 16.6 LAB L100.1820 35.1-43.9 fl High RDW SD 57.8 LAB L100.1900 150-450 K/mm3 Normal PLT 259 LAB L100.2000 6.2-12.0 fl Normal MPV 9.5 LAB L100.2100 47-70 % Normal NEUT% 64.7 LAB L100.2200 19-41 % Normal LY% 25.4 LAB L100.2300 0-10 % Normal MONO% 6.9 LAB L100.2400 0-5 % Normal EO% 2.6 LAB L100.2500 0-1 % Normal BASO% 0.2 LAB L100.2550 0.0-0.9 % Normal IM GRAN % 0.200 Result Comment: IG% - Immature Granulocytes (promyelocytes, myelocytes and metamyelocytes) > 1% indicates that a LEFT SHIFT is Present. LAB L100.2620 2.0-7.7 X10 3/uL Normal Absolute Neut 3.0 LAB L100.2720 0.83-4.51 X10 3/ul Normal Absolute Lymph 1.17 Performed By: #### L100.0100 #### [facility] [address] [place], [address] PROTHROMBIN TIME W/INR Collected: 02/13/2018 Status: F Source: [place] 11:17 AM [facility] REPOSITORY Order Comment: cc: FAX TO DR. Danni KENT [phone] PER PT. TYPE CODE TESTS RESULT OUT OF RANGE REFERENCE UNITS LAB L300.4150 11.7-14.9 SECONDS High PROTIME 29.8 LAB L300.4200 Normal INR 2.8 Performed By: #### L300.3900 #### [facility] [address] [facility] [place], [place], [address] BASIC METABOLIC Collected: 02/13/2018 Status: F Source: [place] PROFILE (BMP) 11:17 AM [facility] REPOSITORY Order Comment: cc: FAX TO DR. Danni KENT [phone] PER PT. TYPE CODE TESTS RESULT OUT OF RANGE REFERENCE UNITS LAB L501.0100 74-106 mg/dL High GLU 124 Result Comment: Fasting Glucose result from 100 to 125 mg/dL suggests IMPAIRED HOMEOSTASIS per A.D.A. criteria. Please note revised GLUCOSE reference range effective 2017. LAB L501.1000 7-18 mg/dL High BUN 34 LAB L501.1100 0.55-1.02 mg/dL High CREAT,SERUM 2.98 Result Comment: The validity of the calculated GFR AND GFRAA in patients over 70 years has not been determined. Clinical correlation is essential. LAB L501.1110 >60 mL/min Low EST GFR 17 Result Comment: Non- GFR Calc LAB L501.1115 >60 mL/min Low EST GFR - AA 20 Result Comment: GFR Calc LAB L501.1300 10-20 RATIO Normal BUN/CRE 11.4 LAB L501.2200 8.5-10.1 mg/dL CA Normal 9.0 LAB L501.5300 136-145 mmol/L NA Normal 142 LAB L501.5600 3.5-5.1 mmol/L K Normal 4.7 LAB L501.5900 98-107 mmol/L High CL 109 LAB L501.6100 21.0-32.0 mmol/L Normal CO2 22.0 LAB L501.6200 5-15 Normal GAP 11 Performed By: #### L500.2500 #### [facility] [address] [place], [address] CBC Collected: 01/27/2018 Status: F Source: [facility] 4:29 AM [facility] REPOSITORY TYPE CODE TESTS RESULT OUT OF REFERENCE UNITS RANGE LAB WBC(LOINC) 4.50-10.80 10 3/mcL WBC 6.10 LAB RBCCT(LOINC 4.10-5.30 10 6/mcL ) Low RBC 2.73 LAB HGB(LOINC) 12.0-16.0 G/dL Low Hgb 8.2 LAB HCT(LOINC) 34.0-46.0 % Low Hct 24.7 LAB MCV(LOINC) 80.0-99.0 fL MCV 90.4 LAB MCH(LOINC) 27.0-33.0 pg MCH 29.9 LAB MCHC(LOINC) 32.0-36.0 G/dL MCHC 33.1 LAB RDW(LOINC) 11.5-15.5 % High RDW 17.0 LAB PLT(LOINC) 150-450 10 3/mcL Platelet 246 LAB MPV(LOINC) 6.6-10.5 fL MPV 7.3 Performed By: #### CBC, ADIFF, ANEU, APTT, BMP, MG, GFR #### [address] [address] .AUTO DIFF Collected: 01/27/2018 Status: F Source: [facility] 4:29 AM [facility] REPOSITORY TYPE CODE TESTS RESULT OUT OF REFERENCE UNITS RANGE LAB LEVON(LOINC) 50.0-75.0 % Neutrophil % 56.1 LAB LYM(LOINC) 20.0-40.0 % Lymphocyte % 29.9 LAB MON(LOINC) 2.0-13.0 % Monocyte % 9.4 LAB EO(LOINC) 0.0-6.0 % Eosinophil % 4.3 LAB BAS(LOINC) 0.0-2.5 % Basophil % 0.3 LAB ABLYM(LOIN 0.90-4.32 10 3/mcL C) Lymphocyte, 1.80 Absolute LAB PERFECTO(LOINC 0.09-1.40 10 3/mcL ) Monocyte, 0.60 Absolute LAB AEOS(LOINC 0.00-0.65 10 3/mcL ) Eosinophil, 0.30 Absolute LAB ABAS(LOINC 0.00-0.27 10 3/mcL ) Basophil, 0.00 Absolute Performed By: #### CBC, ADIFF, ANEU, APTT, BMP, MG, GFR #### [place] [address] .NEUABS Collected: 01/27/2018 Status: F Source: [facility] 4:29 AM [facility] REPOSITORY TYPE CODE TESTS RESULT OUT OF REFERENCE UNITS RANGE LAB ANEU(LOINC) 2.25-8.10 10 3/mcL Neutrophil, 3.40 Absolute Performed By: #### CBC, ADIFF, ANEU, APTT, BMP, MG, GFR #### [place] [address] APTT Collected: 01/27/2018 Status: F Source: [facility] 4:29 AM [facility] REPOSITORY TYPE CODE TESTS RESULT OUT OF REFERENCE UNITS RANGE LAB PDOSE(LOIN C) Heparin dose Heparin IV (APTT) LAB APTT0(LOIN 25.0-35.0 seconds C) High APTT 71.3 Result Comment: For Heparin anticoagulation therapy, the recommended therapeutic range is: 54-77 seconds (APTT Correlation with Anti-Xa therapeutic range of 0.3-0.7 units/ml). PLEASE REFERENCE THE PHARMACY PROTOCOL FOR DOSING. Performed By: #### CBC, ADIFF, ANEU, APTT, BMP, MG, GFR #### [place] [address] BMP Collected: 01/27/2018 Status: F Source: [facility] 4:29 AM [facility] REPOSITORY TYPE CODE TESTS RESULT OUT OF REFERENCE UNITS RANGE LAB GLU(LOINC) 82-115 mg/dL Glucose Level 104 LAB NA(LOINC) 136-145 mEq/L Sodium Level 142 LAB K(LOINC) 3.5-5.0 mEq/L Potassium Level 4.5 LAB CL(LOINC) 98-110 mEq/L Chloride 105 LAB CO2(LOINC) 22-32 mEq/L CO2 26 LAB EBAL(LOINC 4.0-15.0 mEq/L ) Electrolyte Balance 11.0 LAB BUN(LOINC) 8.0-22.0 mg/dL BUN High 34.0 LAB CRE(LOINC) 0.50-1.20 mg/dL Creatinine High Lvl (s) 2.65 LAB BC(LOINC) 10.0-22.0 ratio BUN/Creatinine 12.8 Ratio LAB CA(LOINC) 8.4-10.1 mg/dL Calcium Lvl 8.5 Performed By: #### CBC, ADIFF, ANEU, APTT, BMP, MG, GFR #### [place] [address] MG Collected: 01/27/2018 Status: F Source: [facility] 4:29 AM [facility] REPOSITORY TYPE CODE TESTS RESULT OUT OF REFERENCE UNITS RANGE LAB MG(LOINC) 1.6-2.4 mg/dL Magnesium Lvl 1.8 Performed By: #### CBC, ADIFF, ANEU, APTT, BMP, MG, GFR #### [address] [address] .GFR Collected: 01/27/2018 Status: F Source: [facility] 4:29 AM [facility] REPOSITORY TYPE CODE TESTS RESULT OUT OF REFERENCE UNITS RANGE LAB GFRAA(LOINC ml/min/1.73 ) sqm GFR 22 [place] Result Comment: GFR Population mean for , Non- Americans Ages 20-29 = 116 mL/min/1.73 sq.m. Ages 30-39 = 107 mL/min/1.73 sq.m. Ages 40-49 = 99 mL/min/1.73 sq.m. Ages 50-59 = 93 mL/min/1.73 sq.m. Ages 60-69 = 85 mL/min/1.73 sq.m. Ages 70+ = 75 mL/min/1.73 sq.m. Chronic Kidney Disease: Less than 60 mL/min/1.73 square meters End Stage Renal Disease: Less than 15 mL/min/1.73 square meters LAB GFRNO(LOINC) ml/min/1.73sqm GFR Non- 18 Result Comment: GFR Population mean for , Non- Americans Ages 20-29 = 116 mL/min/1.73 sq.m. Ages 30-39 = 107 mL/min/1.73 sq.m. Ages 40-49 = 99 mL/min/1.73 sq.m. Ages 50-59 = 93 mL/min/1.73 sq.m. Ages 60-69 = 85 mL/min/1.73 sq.m. Ages 70+ = 75 mL/min/1.73 sq.m. Chronic Kidney Disease: Less than 60 mL/min/1.73 square meters End Stage Renal Disease: Less than 15 mL/min/1.73 square meters Performed By: #### CBC, ADIFF, ANEU, APTT, BMP, MG, GFR #### [address] [address] PRO Collected: 01/27/2018 Status: F Source: [facility] 4:29 AM [facility] REPOSITORY TYPE CODE TESTS RESULT OUT OF REFERENCE UNITS RANGE LAB PT(LOINC) 9.0-14.5 seconds High Protime 34.0 Result Comment: Effective 05/24/08, Protime results may be affected by some antibiotics (i.e. Ciprofloxacin, Azithromycin, Bactrim) which may potentiate the action of oral anticoagulants, with further increases in Protime/INR. LAB INR(LOINC) ratio PT International Ratio 2.9 Result Comment: The [employer] (CHEST, 1992, 102:312S-25S) recommended therapeutic range for oral anticoagulant therapy is: LOW RISK: Prophylaxis of venous thrombosis INR: 2.0-3.0 Treatment of pulmonary embolism 2.0-3.0 Prevention of systemic embolism 2.0-3.0 HIGH RISK: Mechanical prosthetic valves 2.5-3.5 Performed By: #### PRO #### [address] [address] OCC (LAB) Collected: 01/26/2018 Status: F Source: [facility] 9:17 PM [facility] REPOSITORY TYPE CODE TESTS RESULT OUT OF REFERENCE UNITS RANGE LAB 40571-5 Negative Negative HEMOGLOBIN.G ASTROINTESTI NAL Result Comment: This test utilizes the guaiac fecal blood method, which detects peroxidase activity (heme) indicating bleeding from stomach, small intestine, or large intestine. If bleeding from either upper or lower gastrointestinal tract is a clinical consideration, the [facility] recommends the use of both the guaiac fecal blood test and the Immunochemical fecal blood test. Performed By: #### OCC #### [address] [address] APTT Collected: 01/26/2018 Status: F Source: [facility] 5:54 PM [facility] REPOSITORY TYPE CODE TESTS RESULT OUT OF REFERENCE UNITS RANGE LAB PDOSE(LOIN C) Heparin dose Heparin IV (APTT) LAB APTT0(LOIN 25.0-35.0 seconds C) High APTT 66.7 Result Comment: For Heparin anticoagulation therapy, the recommended therapeutic range is: 54-77 seconds (APTT Correlation with Anti-Xa therapeutic range of 0.3-0.7 units/ml). PLEASE REFERENCE THE PHARMACY PROTOCOL FOR DOSING. Performed By: #### APTT #### [address] [address] APTT Collected: 01/26/2018 Status: F Source: [facility] 12:37 PM [facility] REPOSITORY TYPE CODE TESTS RESULT OUT OF REFERENCE UNITS RANGE LAB PDOSE(LOIN C) Heparin dose Heparin IV (APTT) LAB APTT0(LOIN 25.0-35.0 seconds C) High APTT 70.4 Result Comment: For Heparin anticoagulation therapy, the recommended therapeutic range is: 54-77 seconds (APTT Correlation with Anti-Xa therapeutic range of 0.3-0.7 units/ml). PLEASE REFERENCE THE PHARMACY PROTOCOL FOR DOSING. Performed By: #### APTT #### [address] [address] CBC Collected: 01/26/2018 Status: F Source: [facility] 5:00 AM [facility] REPOSITORY TYPE CODE TESTS RESULT OUT OF REFERENCE UNITS RANGE LAB WBC(LOINC) 4.50-10.80 10 3/mcL WBC 6.70 LAB RBCCT(LOINC 4.10-5.30 10 6/mcL ) Low RBC 2.78 LAB HGB(LOINC) 12.0-16.0 G/dL Low Hgb 8.3 LAB HCT(LOINC) 34.0-46.0 % Low Hct 25.3 LAB MCV(LOINC) 80.0-99.0 fL MCV 91.1 LAB MCH(LOINC) 27.0-33.0 pg MCH 29.8 LAB MCHC(LOINC) 32.0-36.0 G/dL MCHC 32.7 LAB RDW(LOINC) 11.5-15.5 % High RDW 16.8 LAB PLT(LOINC) 150-450 10 3/mcL Platelet 251 LAB MPV(LOINC) 6.6-10.5 fL MPV 7.5 Performed By: #### CBC, ADIFF, ANEU, APTT, BMP, MG, GFR #### [place] [address] .AUTO DIFF Collected: 01/26/2018 Status: F Source: [facility] 5:00 AM [facility] REPOSITORY TYPE CODE TESTS RESULT OUT OF REFERENCE UNITS RANGE LAB LEVON(LOINC) 50.0-75.0 % Neutrophil % 55.3 LAB LYM(LOINC) 20.0-40.0 % Lymphocyte % 29.7 LAB MON(LOINC) 2.0-13.0 % Monocyte % 10.5 LAB EO(LOINC) 0.0-6.0 % Eosinophil % 4.3 LAB BAS(LOINC) 0.0-2.5 % Basophil % 0.2 LAB ABLYM(LOIN 0.90-4.32 10 3/mcL C) Lymphocyte, 2.00 Absolute LAB PERFECTO(LOINC 0.09-1.40 10 3/mcL ) Monocyte, 0.70 Absolute LAB AEOS(LOINC 0.00-0.65 10 3/mcL ) Eosinophil, 0.30 Absolute LAB ABAS(LOINC 0.00-0.27 10 3/mcL ) Basophil, 0.00 Absolute Performed By: #### CBC, ADIFF, ANEU, APTT, BMP, MG, GFR #### [place] [address] .NEUABS Collected: 01/26/2018 Status: F Source: [facility] 5:00 AM [facility] REPOSITORY TYPE CODE TESTS RESULT OUT OF REFERENCE UNITS RANGE LAB ANEU(LOINC) 2.25-8.10 10 3/mcL Neutrophil, 3.70 Absolute Performed By: #### CBC, ADIFF, ANEU, APTT, BMP, MG, GFR #### [place] [address] APTT Collected: 01/26/2018 Status: F Source: [facility] 5:00 AM [facility] REPOSITORY TYPE CODE TESTS RESULT OUT OF REFERENCE UNITS RANGE LAB PDOSE(LOIN C) Heparin dose Heparin IV (APTT) LAB APTT0(LOIN 25.0-35.0 seconds C) High APTT 83.8 Result Comment: For Heparin anticoagulation therapy, the recommended therapeutic range is: 54-77 seconds (APTT Correlation with Anti-Xa therapeutic range of 0.3-0.7 units/ml). PLEASE REFERENCE THE PHARMACY PROTOCOL FOR DOSING. Performed By: #### CBC, ADIFF, ANEU, APTT, BMP, MG, GFR #### [address] [address] BMP Collected: 01/26/2018 Status: F Source: [facility] 5:00 [facility] REPOSITORY TYPE CODE TESTS RESULT OUT OF REFERENCE UNITS RANGE LAB GLU(LOINC) 82-115 mg/dL Glucose High Level 124 LAB NA(LOINC) 136-145 mEq/L Sodium Level 141 LAB K(LOINC) 3.5-5.0 mEq/L Potassium Level 4.3 LAB CL(LOINC) 98-110 mEq/L Chloride 107 LAB CO2(LOINC) 22-32 mEq/L CO2 27 LAB EBAL(LOINC 4.0-15.0 mEq/L ) Electrolyte Balance 7.0 LAB BUN(LOINC) 8.0-22.0 mg/dL BUN High 33.0 LAB CRE(LOINC) 0.50-1.20 mg/dL Creatinine High Lvl (s) 2.51 LAB BC(LOINC) 10.0-22.0 ratio BUN/Creatinine 13.1 Ratio LAB CA(LOINC) 8.4-10.1 mg/dL Calcium Lvl 8.5 Performed By: #### CBC, ADIFF, ANEU, APTT, BMP, MG, GFR #### [address] [address] MG Collected: 01/26/2018 Status: F Source: [facility] 5:00 [facility] REPOSITORY TYPE CODE TESTS RESULT OUT OF REFERENCE UNITS RANGE LAB MG(LOINC) 1.6-2.4 mg/dL Magnesium Lvl 1.7 Performed By: #### CBC, ADIFF, ANEU, APTT, BMP, MG, GFR #### [address] [address] .GFR Collected: 01/26/2018 Status: F Source: [facility] 5:00 AM [facility] REPOSITORY TYPE CODE TESTS RESULT OUT OF REFERENCE UNITS RANGE LAB GFRAA(LOINC ml/min/1.73 ) sqm GFR 23 [place] Result Comment: GFR Population mean for , Non- Americans Ages 20-29 = 116 mL/min/1.73 sq.m. Ages 30-39 = 107 mL/min/1.73 sq.m. Ages 40-49 = 99 mL/min/1.73 sq.m. Ages 50-59 = 93 mL/min/1.73 sq.m. Ages 60-69 = 85 mL/min/1.73 sq.m. Ages 70+ = 75 mL/min/1.73 sq.m. Chronic Kidney Disease: Less than 60 mL/min/1.73 square meters End Stage Renal Disease: Less than 15 mL/min/1.73 square meters LAB GFRNO(LOINC) ml/min/1.73sqm GFR Non- 19 Result Comment: GFR Population mean for , Non- Americans Ages 20-29 = 116 mL/min/1.73 sq.m. Ages 30-39 = 107 mL/min/1.73 sq.m. Ages 40-49 = 99 mL/min/1.73 sq.m. Ages 50-59 = 93 mL/min/1.73 sq.m. Ages 60-69 = 85 mL/min/1.73 sq.m. Ages 70+ = 75 mL/min/1.73 sq.m. Chronic Kidney Disease: Less than 60 mL/min/1.73 square meters End Stage Renal Disease: Less than 15 mL/min/1.73 square meters Performed By: #### CBC, ADIFF, ANEU, APTT, BMP, MG, GFR #### [address] [address] PRO Collected: 01/26/2018 Status: F Source: [facility] 5:00 AM [facility] REPOSITORY TYPE CODE TESTS RESULT OUT OF REFERENCE UNITS RANGE LAB PT(LOINC) 9.0-14.5 seconds High Protime 22.4 Result Comment: Effective 05/24/08, Protime results may be affected by some antibiotics (i.e. Ciprofloxacin, Azithromycin, Bactrim) which may potentiate the action of oral anticoagulants, with further increase in Protime/INR. LAB INR(LOINC) ratio PT International Ratio 1.9 Result Comment: The [place] [employer] (CHEST, 1992, 102:312S-25S) recommended therapeutic range for oral anticoagulant therapy is: LOW RISK: Prophylaxis of venous thrombosis INR: 2.0-3.0 Treatment of pulmonary embolism 2.0-3.0 Prevention of systemic embolism 2.0-3.0 HIGH RISK: Mechanical prosthetic valves 2.5-3.5 Performed By: #### PRO #### [address] [address] CBC Collected: 01/25/2018 Status: F Source: [facility] 4:28 AM [facility] REPOSITORY TYPE CODE TESTS RESULT OUT OF REFERENCE UNITS RANGE LAB WBC(LOINC) 4.50-10.80 10 3/mcL WBC 6.80 LAB RBCCT(LOINC 4.10-5.30 10 6/mcL ) Low RBC 2.81 LAB HGB(LOINC) 12.0-16.0 G/dL Low Hgb 8.4 LAB HCT(LOINC) 34.0-46.0 % Low Hct 25.4 LAB MCV(LOINC) 80.0-99.0 fL MCV 90.5 LAB MCH(LOINC) 27.0-33.0 pg MCH 30.0 LAB MCHC(LOINC) 32.0-36.0 G/dL MCHC 33.2 LAB RDW(LOINC) 11.5-15.5 % High RDW 16.8 LAB PLT(LOINC) 150-450 10 3/mcL Platelet 236 LAB MPV(LOINC) 6.6-10.5 fL MPV 7.7 Performed By: #### CBC, ADIFF, ANEU, PRO, APTT, BMP, MG, GFR #### [address] [address] .AUTO DIFF Collected: 01/25/2018 Status: F Source: [facility] 4:28 AM [facility] REPOSITORY TYPE CODE TESTS RESULT OUT OF REFERENCE UNITS RANGE LAB LEVON(LOINC) 50.0-75.0 % Neutrophil % 58.5 LAB LYM(LOINC) 20.0-40.0 % Lymphocyte % 26.4 LAB MON(LOINC) 2.0-13.0 % Monocyte % 11.0 LAB EO(LOINC) 0.0-6.0 % Eosinophil % 3.9 LAB BAS(LOINC) 0.0-2.5 % Basophil % 0.2 LAB ABLYM(LOIN 0.90-4.32 10 3/mcL C) Lymphocyte, 1.80 Absolute LAB PERFECTO(LOINC 0.09-1.40 10 3/mcL ) Monocyte, 0.80 Absolute LAB AEOS(LOINC 0.00-0.65 10 3/mcL ) Eosinophil, 0.30 Absolute LAB ABAS(LOINC 0.00-0.27 10 3/mcL ) Basophil, 0.00 Absolute Performed By: #### CBC, ADIFF, ANEU, PRO, APTT, BMP, MG, GFR #### [place] [address] .NEUABS Collected: 01/25/2018 Status: F Source: [facility] 4:28 AM [facility] REPOSITORY TYPE CODE TESTS RESULT OUT OF REFERENCE UNITS RANGE LAB ANEU(LOINC) 2.25-8.10 10 3/mcL Neutrophil, 4.00 Absolute Performed By: #### CBC, ADIFF, ANEU, PRO, APTT, BMP, MG, GFR #### [place] [address] PRO Collected: 01/25/2018 Status: F Source: [facility] 4:28 AM [facility] REPOSITORY Order Comment: ordered secondary to warfarin order TYPE CODE TESTS RESULT OUT OF REFERENCE UNITS RANGE LAB PT(LOINC) 9.0-14.5 seconds High Protime 16.5 Result Comment: Effective 05/24/08, Protime results may be affected by some antibiotics (i.e. Ciprofloxacin, Azithromycin, Bactrim) which may potentiate the action of oral anticoagulants, with further increases in Protime/INR. LAB INR(LOINC) ratio PT International Ratio 1.4 Result Comment: The [place] [employer] (CHEST, 1992, 102:312S-25S) recommended therapeutic range for oral anticoagulant therapy is: LOW RISK: Prophylaxis of venous thrombosis INR: 2.0-3.0 Treatment of pulmonary embolism 2.0-3.0 Prevention of systemic embolism 2.0-3.0 HIGH RISK: Mechanical prosthetic valves 2.5-3.5 Performed By: #### CBC, ADIFF, ANEU, PRO, APTT, BMP, MG, GFR #### [address] [address] APTT Collected: 01/25/2018 Status: F Source: [facility] 4:28 AM [facility] REPOSITORY TYPE CODE TESTS RESULT OUT OF REFERENCE UNITS RANGE LAB PDOSE(LOIN C) Heparin dose Heparin IV (APTT) LAB APTT0(LOIN 25.0-35.0 seconds C) High APTT 69.8 Result Comment: For Heparin anticoagulation therapy, the recommended therapeutic range is: 54-77 seconds (APTT Correlation with Anti-Xa therapeutic range of 0.3-0.7 units/ml). PLEASE REFERENCE THE PHARMACY PROTOCOL FOR DOSING. Performed By: #### CBC, ADIFF, ANEU, PRO, APTT, BMP, MG, GFR #### [address] [address] BMP Collected: 01/25/2018 Status: F [facility] 4:[facility] AM [facility] REPOSITORY TYPE CODE TESTS RESULT OUT OF REFERENCE UNITS RANGE LAB GLU(LOINC) 82-115 mg/dL Glucose High Level 122 LAB NA(LOINC) 136-145 mEq/L Sodium Level 142 LAB K(LOINC) 3.5-5.0 mEq/L Potassium Level 4.1 LAB CL(LOINC) 98-110 mEq/L Chloride 106 LAB CO2(LOINC) 22-32 mEq/L CO2 25 LAB EBAL(LOINC 4.0-15.0 mEq/L ) Electrolyte Balance 11.0 LAB BUN(LOINC) 8.0-22.0 mg/dL BUN High 31.0 LAB CRE(LOINC) 0.50-1.20 mg/dL Creatinine High Lvl (s) 2.56 LAB BC(LOINC) 10.0-22.0 ratio BUN/Creatinine 12.1 Ratio LAB CA(LOINC) 8.4-10.1 mg/dL Calcium Lvl 8.7 Performed By: #### CBC, ADIFF, ANEU, PRO, APTT, BMP, MG, GFR #### [address] [address] MG Collected: 01/25/2018 Status: F [facility] 4:28 AM [facility] REPOSITORY TYPE CODE TESTS RESULT OUT OF REFERENCE UNITS RANGE LAB MG(LOINC) 1.6-2.4 mg/dL Magnesium Lvl 1.7 Performed By: #### CBC, ADIFF, ANEU, PRO, APTT, BMP, MG, GFR #### [address] [address] .GFR Collected: 01/25/2018 Status: F Source: [facility] 4:28 AM [facility] REPOSITORY TYPE CODE TESTS RESULT OUT OF REFERENCE UNITS RANGE LAB GFRAA(LOINC ml/min/1.73 ) sqm GFR 23 [place] Result Comment: GFR Population mean for , Non- Americans Ages 20-29 = 116 mL/min/1.73 sq.m. Ages 30-39 = 107 mL/min/1.73 sq.m. Ages 40-49 = 99 mL/min/1.73 sq.m. Ages 50-59 = 93 mL/min/1.73 sq.m. Ages 60-69 = 85 mL/min/1.73 sq.m. Ages 70+ = 75 mL/min/1.73 sq.m. Chronic Kidney Disease: Less than 60 mL/min/1.73 square meters End Stage Renal Disease: Less than 15 mL/min/1.73 square meters LAB GFRNO(LOINC) ml/min/1.73sqm GFR Non- 19 Result Comment: GFR Population mean for , Non- Americans Ages 20-29 = 116 mL/min/1.73 sq.m. Ages 30-39 = 107 mL/min/1.73 sq.m. Ages 40-49 = 99 mL/min/1.73 sq.m. Ages 50-59 = 93 mL/min/1.73 sq.m. Ages 60-69 = 85 mL/min/1.73 sq.m. Ages 70+ = 75 mL/min/1.73 sq.m. Chronic Kidney Disease: Less than 60 mL/min/1.73 square meters End Stage Renal Disease: Less than 15 mL/min/1.73 square meters Performed By: #### CBC, ADIFF, ANEU, PRO, APTT, BMP, MG, GFR #### [address] [address] EMERGENCY DEPARTMENT Observed: 01/24/2018 Status: F Source: [facility] 8:41 AM [facility] EMERGENCY DEPARTMENT SUMMARY NAME NUMBER SEX AGE ADMIT DISC TYPE MED.RECORD# BENITO LEWIS [id number] F 62 01/16/18 01/16/18 AdaliLuisLesli [id number] ROOM:ER DATE OF :1955 PHYSICIAN NO.:[id number] PHYSICIAN NAME:Bin Snow M.D. PHYSICIAN:Bin Snow M.D. CHIEF COMPLAINT: Anemia. HISTORY OF PRESENT ILLNESS: The patient is 62 years old, being treated by a flatbed owner operator. He ordered some labs on her. She came up here and got them done today and her flatbed owner operator told her that her blood count is low to come to the ER for transfusion. Her only complaint is generalized weakness and shortness of breath on exertion for a few days. 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 She is on Coumadin. She denies any source of bleeding. No nose bleeds. No vomiting. No blood in the stools. No blood in the urine. No vaginal bleeding. PAST MEDICAL HISTORY: As above. CURRENT MEDICATIONS: Include Coumadin. ALLERGIES: None known. FAMILY HISTORY: No pertinent family history. SOCIAL HISTORY: Lives with family. REVIEW OF SYSTEMS: System review as per assessment sheet. PHYSICAL EXAMINATION: The patient is pale, ambulatory. Vital Signs: Blood pressure is 126/52. Oxygen saturation 100% on room air. Respirations 16. Pulse of 86. Temperature: 98. Head: Normocephalic, face no edema or swelling. Eyes: No icterus or injection of conjunctivae. Ears: No drainage, no erythema. Tympanic membranes are translucent. Mouth: Mucous membranes are moist. Throat: No erythema, no swelling. Chest: Symmetrical. No sternal rib retractions, not using accessory muscles. Heart: Regular rhythm, no rub audible. Lungs: Clear to auscultation, no rales, rhonchi or wheezing. Abdomen: Soft, nontender, no mass, no organomegaly palpable. DIAGNOSTIC DATA: Labs were done. Hemoglobin was 6.7. There appears to be more of a chronic ongoing problem. Her Creatinine is 2.4 and INR of 3.3. EMERGENCY DEPARTMENT COURSE AND TREATMENT: The patient's symptoms are consistent with anemia. I talked to Dr. Machado regarding transfusion. He was not comfortable admitting the patient here because of her history. Advised that it is best to send the patient to [place] and I spoke to the hospitalist there. She will admitted there for observation for transfusion. DIAGNOSES: 1. Anemia. 2. Renal failure. PLAN/DISPOSITION: Send the patient to [facility] for further management. CONDITION: Stable. D: Swetha Snow MD TD: 19:04 JOB #: [id number] Transcribed by: elizabeth 01/17/2018 14:35 Electronically signed by: E-Sign Swetha Snow M.D. 01/24/18 08:40 PRO Collected: 01/24/2018 Status: F Source: [facility] 5:01 AM [facility] REPOSITORY Order Comment: ordered secondary to warfarin order TYPE CODE TESTS RESULT OUT OF REFERENCE UNITS RANGE LAB PT(LOINC) 9.0-14.5 seconds Protime 13.6 Result Comment: Effective 05/24/08, Protime results may be affected by some antibiotics (i.e. Ciprofloxacin, Azithromycin, Bactrim) which may potentiate the action of oral anticoagulants, with further increases in Protime/INR. LAB INR(LOINC) ratio PT International Ratio 1.2 Result Comment: The [place] [employer] (CHEST, 1992, 102:312S-25S) recommended therapeutic range for oral anticoagulant therapy is: LOW RISK: Prophylaxis of venous thrombosis INR: 2.0-3.0 Treatment of pulmonary embolism 2.0-3.0 Prevention of systemic embolism 2.0-3.0 HIGH RISK: Mechanical prosthetic valves 2.5-3.5 Performed By: #### PRO, CBC, ADIFF, ANEU #### [place] [address] CBC Collected: 01/24/2018 Status: F Source: [facility] 5:01 AM [facility] REPOSITORY TYPE CODE TESTS RESULT OUT OF REFERENCE UNITS RANGE LAB WBC(LOINC) 4.50-10.80 10 3/mcL WBC 7.50 LAB RBCCT(LOINC 4.10-5.30 10 6/mcL ) Low RBC 2.80 LAB HGB(LOINC) 12.0-16.0 G/dL Low Hgb 8.5 LAB HCT(LOINC) 34.0-46.0 % Low Hct 25.4 LAB MCV(LOINC) 80.0-99.0 fL MCV 90.6 LAB MCH(LOINC) 27.0-33.0 pg MCH 30.3 LAB MCHC(LOINC) 32.0-36.0 G/dL MCHC 33.5 LAB RDW(LOINC) 11.5-15.5 % High RDW 16.5 LAB PLT(LOINC) 150-450 10 3/mcL Platelet 249 LAB MPV(LOINC) 6.6-10.5 fL MPV 7.7 Performed By: #### PRO, CBC, ADIFF, ANEU #### [address] [address] .AUTO DIFF Collected: 01/24/2018 Status: F Source: [facility] 5:01 [facility] REPOSITORY TYPE CODE TESTS RESULT OUT OF REFERENCE UNITS RANGE LAB LEVON(LOINC) 50.0-75.0 % Neutrophil % 68.4 LAB LYM(LOINC) 20.0-40.0 % Low Lymphocyte % 19.3 LAB MON(LOINC) 2.0-13.0 % Monocyte % 9.4 LAB EO(LOINC) 0.0-6.0 % Eosinophil % 2.6 LAB BAS(LOINC) 0.0-2.5 % Basophil % 0.3 LAB ABLYM(LOIN 0.90-4.32 10 3/mcL C) Lymphocyte, 1.50 Absolute LAB PERFECTO(LOINC 0.09-1.40 10 3/mcL ) Monocyte, 0.70 Absolute LAB AEOS(LOINC 0.00-0.65 10 3/mcL ) Eosinophil, 0.20 Absolute LAB ABAS(LOINC 0.00-0.27 10 3/mcL ) Basophil, 0.00 Absolute Performed By: #### PRO, CBC, ADIFF, ANEU #### [address] [address] .NEUABS Collected: 01/24/2018 Status: F Source: [facility] 5:01 [facility] REPOSITORY TYPE CODE TESTS RESULT OUT OF REFERENCE UNITS RANGE LAB ANEU(LOINC) 2.25-8.10 10 3/mcL Neutrophil, 5.20 Absolute Performed By: #### PRO, CBC, ADIFF, ANEU #### [place] [address] APTT Collected: 01/24/2018 Status: F Source: [facility] 5:01 AM [facility] REPOSITORY TYPE CODE TESTS RESULT OUT OF REFERENCE UNITS RANGE LAB PDOSE(LOIN C) Heparin dose Heparin IV (APTT) LAB APTT0(LOIN 25.0-35.0 seconds C) High APTT 60.8 Result Comment: For Heparin anticoagulation therapy, the recommended therapeutic range is: 54-77 seconds (APTT Correlation with Anti-Xa therapeutic range of 0.3-0.7 units/ml). PLEASE REFERENCE THE PHARMACY PROTOCOL FOR DOSING. Performed By: #### APTT #### [place] [address] BMP Collected: 01/24/2018 Status: F Source: [facility] 5:01 [facility] REPOSITORY TYPE CODE TESTS RESULT OUT OF REFERENCE UNITS RANGE LAB GLU(LOINC) 82-115 mg/dL Glucose High Level 135 LAB NA(LOINC) 136-145 mEq/L Sodium Level 141 LAB K(LOINC) 3.5-5.0 mEq/L Potassium Level 4.3 LAB CL(LOINC) 98-110 mEq/L Chloride 107 LAB CO2(LOINC) 22-32 mEq/L CO2 26 LAB EBAL(LOINC 4.0-15.0 mEq/L ) Electrolyte Balance 8.0 LAB BUN(LOINC) 8.0-22.0 mg/dL BUN High 30.0 LAB CRE(LOINC) 0.50-1.20 mg/dL Creatinine High Lvl (s) 2.74 LAB BC(LOINC) 10.0-22.0 ratio BUN/Creatinine 10.9 Ratio LAB CA(LOINC) 8.4-10.1 mg/dL Calcium Lvl 8.4 Performed By: #### BMP, MG, GFR #### [place] [address] MG Collected: 01/24/2018 Status: F Source: [facility] 5:01 [facility] REPOSITORY TYPE CODE TESTS RESULT OUT OF REFERENCE UNITS RANGE LAB MG(LOINC) 1.6-2.4 mg/dL Magnesium Lvl 1.9 Performed By: #### BMP, MG, GFR #### [place] [address] .GFR Collected: 01/24/2018 Status: F Source: [facility] [employer] [facility] 5:01 AM [facility] REPOSITORY TYPE CODE TESTS RESULT OUT OF REFERENCE UNITS RANGE LAB GFRAA(LOINC ml/min/1.73 ) sqm GFR 21 [place] Result Comment: GFR Population mean for , Non- Americans Ages 20-29 = 116 mL/min/1.73 sq.m. Ages 30-39 = 107 mL/min/1.73 sq.m. Ages 40-49 = 99 mL/min/1.73 sq.m. Ages 50-59 = 93 mL/min/1.73 sq.m. Ages 60-69 = 85 mL/min/1.73 sq.m. Ages 70+ = 75 mL/min/1.73 sq.m. Chronic Kidney Disease: Less than 60 mL/min/1.73 square meters End Stage Renal Disease: Less than 15 mL/min/1.73 square meters LAB GFRNO(LOINC) ml/min/1.73sqm GFR Non- 17 Result Comment: GFR Population mean for , Non- Americans Ages 20-29 = 116 mL/min/1.73 sq.m. Ages 30-39 = 107 mL/min/1.73 sq.m. Ages 40-49 = 99 mL/min/1.73 sq.m. Ages 50-59 = 93 mL/min/1.73 sq.m. Ages 60-69 = 85 mL/min/1.73 sq.m. Ages 70+ = 75 mL/min/1.73 sq.m. Chronic Kidney Disease: Less than 60 mL/min/1.73 square meters End Stage Renal Disease: Less than 15 mL/min/1.73 square meters Performed By: #### BMP, MG, GFR #### [facility] [address] [place] [address] APTT Collected: 01/23/2018 Status: F Source: [facility] 9:10 PM [facility] REPOSITORY TYPE CODE TESTS RESULT OUT OF REFERENCE UNITS RANGE LAB PDOSE(LOIN C) Heparin dose Heparin IV (APTT) LAB APTT0(LOIN 25.0-35.0 seconds C) High APTT 64.8 Result Comment: For Heparin anticoagulation therapy, the recommended therapeutic range is: 54-77 seconds (APTT Correlation with Anti-Xa therapeutic range of 0.3-0.7 units/ml). PLEASE REFERENCE THE PHARMACY PROTOCOL FOR DOSING. Performed By: #### APTT #### [place] [id number] [place] [address] APTT Collected: 01/23/2018 Status: F Source: [facility] 2:53 PM [facility] REPOSITORY TYPE CODE TESTS RESULT OUT OF REFERENCE UNITS RANGE LAB PDOSE(LOIN C) Heparin dose Heparin IV (APTT) LAB APTT0(LOIN 25.0-35.0 seconds C) High APTT 62.4 Result Comment: For Heparin anticoagulation therapy, the recommended therapeutic range is: 54-77 seconds (APTT Correlation with Anti-Xa therapeutic range of 0.3-0.7 units/ml). PLEASE REFERENCE THE PHARMACY PROTOCOL FOR DOSING. Performed By: #### APTT #### [address] [address] PRO Collected: 01/23/2018 Status: F Source: [facility] 4:41 AM [facility] REPOSITORY Order Comment: ordered secondary to warfarin order TYPE CODE TESTS RESULT OUT OF REFERENCE UNITS RANGE LAB PT(LOINC) 9.0-14.5 seconds High Protime 14.9 Result Comment: Effective 05/24/08, Protime results may be affected by some antibiotics (i.e. Ciprofloxacin, Azithromycin, Bactrim) which may potentiate the action of oral anticoagulants, with further increases in Protime/INR. LAB INR(LOINC) ratio PT International Ratio 1.3 Result Comment: [employer] [place] [employer] (CHEST, 1992, 102:312S-25S) recommended therapeutic range for oral anticoagulant therapy is: LOW RISK: Prophylaxis of venous thrombosis INR: 2.0-3.0 Treatment of pulmonary embolism 2.0-3.0 Prevention of systemic embolism 2.0-3.0 HIGH RISK: Mechanical prosthetic valves 2.5-3.5 Performed By: #### PRO #### [address] [address] CBC Collected: 01/23/2018 Status: F Source: [facility] 4:41 AM [facility] REPOSITORY TYPE CODE TESTS RESULT OUT OF REFERENCE UNITS RANGE LAB WBC(LOINC) 4.50-10.80 10 3/mcL WBC 8.60 LAB RBCCT(LOINC 4.10-5.30 10 6/mcL ) Low RBC 2.79 LAB HGB(LOINC) 12.0-16.0 G/dL Low Hgb 8.4 LAB HCT(LOINC) 34.0-46.0 % Low Hct 25.1 LAB MCV(LOINC) 80.0-99.0 fL MCV 89.9 LAB MCH(LOINC) 27.0-33.0 pg MCH 30.2 LAB MCHC(LOINC) 32.0-36.0 G/dL MCHC 33.6 LAB RDW(LOINC) 11.5-15.5 % RDW 15.4 LAB PLT(LOINC) 150-450 10 3/mcL Platelet 251 LAB MPV(LOINC) 6.6-10.5 fL MPV 7.5 Performed By: #### CBC, ADIFF, ANEU, APTT, PRO, BMP, MG, GFR #### [address] [id number] .AUTO DIFF Collected: 01/23/2018 Status: F Source: [facility] 4:41 [facility] REPOSITORY TYPE CODE TESTS RESULT OUT OF REFERENCE UNITS RANGE LAB LEVON(LOINC) 50.0-75.0 % Neutrophil % 63.7 LAB LYM(LOINC) 20.0-40.0 % Lymphocyte % 24.6 LAB MON(LOINC) 2.0-13.0 % Monocyte % 9.4 LAB EO(LOINC) 0.0-6.0 % Eosinophil % 2.1 LAB BAS(LOINC) 0.0-2.5 % Basophil % 0.2 LAB ABLYM(LOIN 0.90-4.32 10 3/mcL C) Lymphocyte, 2.10 Absolute LAB PERFECTO(LOINC 0.09-1.40 10 3/mcL ) Monocyte, 0.80 Absolute LAB AEOS(LOINC 0.00-0.65 10 3/mcL ) Eosinophil, 0.20 Absolute LAB ABAS(LOINC 0.00-0.27 10 3/mcL ) Basophil, 0.00 Absolute Performed By: #### CBC, ADIFF, ANEU, APTT, PRO, BMP, MG, GFR #### [address] [id number] .NEUABS Collected: 01/23/2018 Status: F Source: [facility] 4:41 [facility] REPOSITORY TYPE CODE TESTS RESULT OUT OF REFERENCE UNITS RANGE LAB ANEU(LOINC) 2.25-8.10 10 3/mcL Neutrophil, 5.50 Absolute Performed By: #### CBC, ADIFF, ANEU, APTT, PRO, BMP, MG, GFR #### [facility] [address] [place] [id number] APTT Collected: 01/23/2018 Status: F Source: [facility] 4:41 AM [facility] REPOSITORY TYPE CODE TESTS RESULT OUT OF RANGE REFERENCE UNITS LAB PDOSE(LOIN C) Heparin dose Heparin IV (APTT) LAB APTT0(LOIN 25.0-35.0 seconds C) Abnormal APTT 175.5 Alert Result Comment: For Heparin anticoagulation therapy, the recommended therapeutic range is: 54-77 seconds (APTT Correlation with Anti-Xa therapeutic range of 0.3-0.7 units/ml). PLEASE REFERENCE THE PHARMACY PROTOCOL FOR DOSING. Performed By: #### CBC, ADIFF, ANEU, APTT, PRO, BMP, MG, GFR #### [address] [address] PRO Collected: 01/23/2018 Status: F Source: [facility] 4:41 AM [facility] TYPE CODE TESTS RESULT OUT OF REFERENCE UNITS RANGE LAB PT(LOINC) 9.0-14.5 seconds High Protime 15.0 Result Comment: Effective 05/24/08, Protime results may be affected by some antibiotics (i.e. Ciprofloxacin, Azithromycin, Bactrim) which may potentiate the action of oral anticoagulants, with further increases in Protime/INR. LAB INR(LOINC) ratio PT International Ratio 1.3 Result Comment: The [employer] (CHEST, 1992, 102:312S-25S) recommended therapeutic range for oral anticoagulant therapy is: LOW RISK: Prophylaxis of venous thrombosis INR: 2.0-3.0 Treatment of pulmonary embolism 2.0-3.0 Prevention of systemic embolism 2.0-3.0 HIGH RISK: Mechanical prosthetic valves 2.5-3.5 Performed By: #### CBC, ADIFF, ANEU, APTT, PRO, BMP, MG, GFR #### [facility] [address] [place] [id number] BMP Collected: 01/23/2018 Status: F Source: [facility] 4:41 AM [facility] REPOSITORY TYPE CODE TESTS RESULT OUT OF REFERENCE UNITS RANGE LAB GLU(LOINC) 82-115 mg/dL Glucose Level 110 LAB NA(LOINC) 136-145 mEq/L Sodium Level 140 LAB K(LOINC) 3.5-5.0 mEq/L Potassium Level 4.2 LAB CL(LOINC) 98-110 mEq/L Chloride 104 LAB CO2(LOINC) 22-32 mEq/L CO2 27 LAB EBAL(LOINC 4.0-15.0 mEq/L ) Electrolyte Balance 9.0 LAB BUN(LOINC) 8.0-22.0 mg/dL BUN High 27.0 LAB CRE(LOINC) 0.50-1.20 mg/dL Creatinine High Lvl (s) 2.92 LAB BC(LOINC) 10.0-22.0 ratio Low BUN/Creatinine 9.2 Ratio LAB CA(LOINC) 8.4-10.1 mg/dL Calcium Lvl 9.2 Performed By: #### CBC, ADIFF, ANEU, APTT, PRO, BMP, MG, GFR #### [address] [address] MG Collected: 01/23/2018 Status: F Source: [facility] 4:41 AM [facility] REPOSITORY TYPE CODE TESTS RESULT OUT OF REFERENCE UNITS RANGE LAB MG(LOINC) 1.6-2.4 mg/dL Magnesium Lvl 1.6 Performed By: #### CBC, ADIFF, ANEU, APTT, PRO, BMP, MG, GFR #### [address] [address] .GFR Collected: 01/23/2018 Status: F Source: [facility] 4:41 AM [facility] REPOSITORY TYPE CODE TESTS RESULT OUT OF REFERENCE UNITS RANGE LAB GFRAA(LOINC ml/min/1.73 ) sqm GFR 20 [place] Result Comment: GFR Population mean for , Non- Americans Ages 20-29 = 116 mL/min/1.73 sq.m. Ages 30-39 = 107 mL/min/1.73 sq.m. Ages 40-49 = 99 mL/min/1.73 sq.m. Ages 50-59 = 93 mL/min/1.73 sq.m. Ages 60-69 = 85 mL/min/1.73 sq.m. Ages 70+ = 75 mL/min/1.73 sq.m. Chronic Kidney Disease: Less than 60 mL/min/1.73 square meters End Stage Renal Disease: Less than 15 mL/min/1.73 square meters LAB GFRNO(LOINC) ml/min/1.73sqm GFR Non- 16 Result Comment: GFR Population mean for , Non- Americans Ages 20-29 = 116 mL/min/1.73 sq.m. Ages 30-39 = 107 mL/min/1.73 sq.m. Ages 40-49 = 99 mL/min/1.73 sq.m. Ages 50-59 = 93 mL/min/1.73 sq.m. Ages 60-69 = 85 mL/min/1.73 sq.m. Ages 70+ = 75 mL/min/1.73 sq.m. Chronic Kidney Disease: Less than 60 mL/min/1.73 square meters End Stage Renal Disease: Less than 15 mL/min/1.73 square meters Performed By: #### CBC, ADIFF, ANEU, APTT, PRO, BMP, MG, GFR #### [place] [address] APTT Collected: 01/22/2018 Status: F Source: [facility] 9:18 PM [facility] REPOSITORY TYPE CODE TESTS RESULT OUT OF REFERENCE UNITS RANGE LAB PDOSE(LOIN C) Heparin dose Heparin IV (APTT) LAB APTT0(LOIN 25.0-35.0 seconds C) High APTT 42.5 Result Comment: For Heparin anticoagulation therapy, the recommended therapeutic range is: 54-77 seconds (APTT Correlation with Anti-Xa therapeutic range of 0.3-0.7 units/ml). PLEASE REFERENCE THE PHARMACY PROTOCOL FOR DOSING. Performed By: #### APTT #### [place] [address] FINAL SURGICAL Observed: 01/22/2018 Status: F Source: [facility] PATHOLOGY REPORT 11:16 AM [facility] REPOSITORY . Pathology Reports Accession: Collected Date/Time: Received Date/Time: Pathologist: [id number] 01/22/2018 11:16 EDT 01/22/2018 11:16 EDT MD EULALIO KING Final Surgical Pathology Report DIAGNOSIS: A) ASCENDING COLON, POLYPECTOMY: - SERRATED POLYP WITHOUT CYTOLOGIC DYSPLASIA. B) TRANSVERSE COLON, POLYPECTOMY: - HYPERPLASTIC POLYPS (TWO). C) SIGMOID COLON, POLYPECTOMY: - HYPERPLASTIC POLYPS (TWO). CLINICAL INFORMATION: . Procedure: HOT SNARE REMOVAL Preoperative diagnosis: ANEMIA Postoperative diagnosis: SAME SPECIMEN: A POLYP, ASCENDING COLON B POLYP, TRANSVERSE COLON x2 C POLYP, SIGMOID COLON x2 GROSS DESCRIPTION: _ A. Received in formalin labeled descending colon polyp are several portions of pink-helm soft tissue ranging from 0.2-0.6 cm in greatest dimension, and a moderate amount of green-yellow debris. TS -1 B. Received in formalin labeled transverse colon polyp ??2 are several pink-helm soft tissue fragments ranging from minute to 0.5 cm in greatest dimension. TS -1 C. Received in formalin labeled sigmoid colon polyp ??2 are 3 helm red glistening soft tissues ranging from 0.3-0.4 cm. TS -1 Dictated by GM HEWITT ([facility]) MICROSCOPIC DESCRIPTION: Slides reviewed. Electronically Signed by Pathology Report verified by [facility] Electronically signed by EULALIO KING MD Sign out Date: 01/23/2018 13:45 Performing Lab: [address] Performed By: #### SPFR #### [place] [address] CBC Collected: 01/22/2018 Status: F Source: [facility] 4:26 AM [facility]POS[facility] TYPE CODE TESTS RESULT OUT OF REFERENCE UNITS RANGE LAB WBC(LOINC) 4.50-10.80 10 3/mcL WBC 7.00 LAB RBCCT(LOINC 4.10-5.30 10 6/mcL ) Low RBC 3.05 LAB HGB(LOINC) 12.0-16.0 G/dL Low Hgb 8.9 LAB HCT(LOINC) 34.0-46.0 % Low Hct 27.3 LAB MCV(LOINC) 80.0-99.0 fL MCV 89.6 LAB MCH(LOINC) 27.0-33.0 pg MCH 29.0 LAB MCHC(LOINC) 32.0-36.0 G/dL MCHC 32.4 LAB RDW(LOINC) 11.5-15.5 % High RDW 15.9 LAB PLT(LOINC) 150-450 10 3/mcL Platelet 265 LAB MPV(LOINC) 6.6-10.5 fL MPV 7.1 Performed By: #### CBC, ADIFF, ANEU, APTT, BMP, MG, GFR #### [address] [address] .AUTO DIFF Collected: 01/22/2018 Status: F Source: [facility] 4:26 AM [facility] REPOSITORY TYPE CODE TESTS RESULT OUT OF REFERENCE UNITS RANGE LAB LEVON(LOINC) 50.0-75.0 % Neutrophil % 59.4 LAB LYM(LOINC) 20.0-40.0 % Lymphocyte % 26.3 LAB MON(LOINC) 2.0-13.0 % Monocyte % 10.6 LAB EO(LOINC) 0.0-6.0 % Eosinophil % 3.4 LAB BAS(LOINC) 0.0-2.5 % Basophil % 0.3 LAB ABLYM(LOIN 0.90-4.32 10 3/mcL C) Lymphocyte, 1.80 Absolute LAB PERFECTO(LOINC 0.09-1.40 10 3/mcL ) Monocyte, 0.70 Absolute LAB AEOS(LOINC 0.00-0.65 10 3/mcL ) Eosinophil, 0.20 Absolute LAB ABAS(LOINC 0.00-0.27 10 3/mcL ) Basophil, 0.00 Absolute Performed By: #### CBC, ADIFF, ANEU, APTT, BMP, MG, GFR #### [place] [address] .NEUABS Collected: 01/22/2018 Status: F Source: [facility] 4:26 AM [facility] REPOSITORY TYPE CODE TESTS RESULT OUT OF REFERENCE UNITS RANGE LAB ANEU(LOINC) 2.25-8.10 10 3/mcL Neutrophil, 4.20 Absolute Performed By: #### CBC, ADIFF, ANEU, APTT, BMP, MG, GFR #### [address] [address] APTT Collected: 01/22/2018 Status: F Source: [facility] 4:26 AM [facility] REPOSITORY TYPE CODE TESTS RESULT OUT OF REFERENCE UNITS RANGE LAB PDOSE(LOIN C) Heparin dose Heparin IV (APTT) LAB APTT0(LOIN 25.0-35.0 seconds C) High APTT 51.5 Result Comment: For Heparin anticoagulation therapy, the recommended therapeutic range is: 54-77 seconds (APTT Correlation with Anti-Xa therapeutic range of 0.3-0.7 units/ml). PLEASE REFERENCE THE PHARMACY PROTOCOL FOR DOSING. Performed By: #### CBC, ADIFF, ANEU, APTT, BMP, MG, GFR #### [address] [address] BMP Collected: 01/22/2018 Status: F Source: [facility] 4:26 AM [facility] REPOSITORY TYPE CODE TESTS RESULT OUT OF REFERENCE UNITS RANGE LAB GLU(LOINC) 82-115 mg/dL Glucose Level 96 LAB NA(LOINC) 136-145 mEq/L Sodium Level 140 LAB K(LOINC) 3.5-5.0 mEq/L Potassium Level 4.0 LAB CL(LOINC) 98-110 mEq/L Chloride 104 LAB CO2(LOINC) 22-32 mEq/L CO2 27 LAB EBAL(LOINC 4.0-15.0 mEq/L ) Electrolyte Balance 9.0 LAB BUN(LOINC) 8.0-22.0 mg/dL BUN High 24.0 LAB CRE(LOINC) 0.50-1.20 mg/dL Creatinine High Lvl (s) 2.52 LAB BC(LOINC) 10.0-22.0 ratio Low BUN/Creatinine 9.5 Ratio LAB CA(LOINC) 8.4-10.1 mg/dL Calcium Lvl 9.3 Performed By: #### CBC, ADIFF, ANEU, APTT, BMP, MG, GFR #### [address] [address] MG Collected: 01/22/2018 Status: F Source: [facility] 4:26 AM [facility] REPOSITORY TYPE CODE TESTS RESULT OUT OF REFERENCE UNITS RANGE LAB MG(LOINC) 1.6-2.4 mg/dL Magnesium Lvl 1.6 Performed By: #### CBC, ADIFF, ANEU, APTT, BMP, MG, GFR #### [address] [address] .GFR Collected: 01/22/2018 Status: F Source: [facility] 4:26 AM [facility] REPOSITORY TYPE CODE TESTS RESULT OUT OF REFERENCE UNITS RANGE LAB GFRAA(LOINC ml/min/1.73 ) sqm GFR 23 [place] Result Comment: GFR Population mean for , Non- Americans Ages 20-29 = 116 mL/min/1.73 sq.m. Ages 30-39 = 107 mL/min/1.73 sq.m. Ages 40-49 = 99 mL/min/1.73 sq.m. Ages 50-59 = 93 mL/min/1.73 sq.m. Ages 60-69 = 85 mL/min/1.73 sq.m. Ages 70+ = 75 mL/min/1.73 sq.m. Chronic Kidney Disease: Less than 60 mL/min/1.73 square meters End Stage Renal Disease: Less than 15 mL/min/1.73 square meters LAB GFRNO(LOINC) ml/min/1.73sqm GFR Non- 19 Result Comment: GFR Population mean for , Non- Americans Ages 20-29 = 116 mL/min/1.73 sq.m. Ages 30-39 = 107 mL/min/1.73 sq.m. Ages 40-49 = 99 mL/min/1.73 sq.m. Ages 50-59 = 93 mL/min/1.73 sq.m. Ages 60-69 = 85 mL/min/1.73 sq.m. Ages 70+ = 75 mL/min/1.73 sq.m. Chronic Kidney Disease: Less than 60 mL/min/1.73 square meters End Stage Renal Disease: Less than 15 mL/min/1.73 square meters Performed By: #### CBC, ADIFF, ANEU, APTT, BMP, MG, GFR #### [address] [address] PRO Collected: 01/22/2018 Status: F Source: [facility] 4:26 AM [facility] REPOSITORY Order Comment: ordered secondary to warfarin order TYPE CODE TESTS RESULT OUT OF REFERENCE UNITS RANGE LAB PT(LOINC) 9.0-14.5 seconds High Protime 16.1 Result Comment: Effective 05/24/08, Protime results may be affected by some antibiotics (i.e. Ciprofloxacin, Azithromycin, Bactrim) which may potentiate the action of oral anticoagulants, with further increases in Protime/INR. LAB INR(LOINC) ratio PT International Ratio 1.4 Result Comment: [employer] [place] [employer] (CHEST, 1992, 102:312S-25S) recommended therapeutic range for oral anticoagulant therapy is: LOW RISK: Prophylaxis of venous thrombosis INR: 2.0-3.0 Treatment of pulmonary embolism 2.0-3.0 Prevention of systemic embolism 2.0-3.0 HIGH RISK: Mechanical prosthetic valves 2.5-3.5 Performed By: #### PRO #### [address] [address] APTT Collected: 01/21/2018 Status: F Source: [facility] 5:40 PM [facility] REPOSITORY TYPE CODE TESTS RESULT OUT OF REFERENCE UNITS RANGE LAB PDOSE(LOIN C) Heparin dose Heparin IV (APTT) LAB APTT0(LOIN 25.0-35.0 seconds C) High APTT 57.8 Result Comment: For Heparin anticoagulation therapy, the recommended therapeutic range is: 54-77 seconds (APTT Correlation with Anti-Xa therapeutic range of 0.3-0.7 units/ml). PLEASE REFERENCE THE PHARMACY PROTOCOL FOR DOSING. Performed By: #### APTT #### [address] [address] APTT Collected: 01/21/2018 Status: F Source: [facility] 11:47 AM [facility] REPOSITORY TYPE CODE TESTS RESULT OUT OF REFERENCE UNITS RANGE LAB PDOSE(LOIN C) Heparin dose Heparin IV (APTT) LAB APTT0(LOIN 25.0-35.0 seconds C) High APTT 60.9 Result Comment: For Heparin anticoagulation therapy, the recommended therapeutic range is: 54-77 seconds (APTT Correlation with Anti-Xa therapeutic range of 0.3-0.7 units/ml). PLEASE REFERENCE THE PHARMACY PROTOCOL FOR DOSING. Performed By: #### APTT #### [address] [address] OCC (LAB) Collected: 01/21/2018 Status: F Source: [facility] 8:55 AM [facility] REPOSITORY TYPE CODE TESTS RESULT OUT OF RANGE REFERENCE UNITS LAB 21123-3 Negative Abnormal Positive HEMOGLOBIN. GASTROINTES TINAL Result Comment: This test utilizes the guaiac fecal blood method, which detects peroxidase activity (heme) indicating bleeding from stomach, small intestine, or large intestine. If bleeding from either upper or lower gastrointestinal tract is a clinical consideration, the [facility] recommends the use of both the guaiac fecal blood test and the Immunochemical fecal blood test. Performed By: #### OCC #### [address] [address] CBC Collected: 01/21/2018 Status: F Source: [facility] 5:09 AM [facility] REPOSITORY TYPE CODE TESTS RESULT OUT OF REFERENCE UNITS RANGE LAB WBC(LOINC) 4.50-10.80 10 3/mcL WBC 6.30 LAB RBCCT(LOINC 4.10-5.30 10 6/mcL ) Low RBC 2.89 LAB HGB(LOINC) 12.0-16.0 G/dL Low Hgb 8.6 LAB HCT(LOINC) 34.0-46.0 % Low Hct 25.5 LAB MCV(LOINC) 80.0-99.0 fL MCV 88.5 LAB MCH(LOINC) 27.0-33.0 pg MCH 29.9 LAB MCHC(LOINC) 32.0-36.0 G/dL MCHC 33.8 LAB RDW(LOINC) 11.5-15.5 % RDW 15.1 LAB PLT(LOINC) 150-450 10 3/mcL Platelet 266 LAB MPV(LOINC) 6.6-10.5 fL MPV 7.0 Performed By: #### CBC, ADIFF, ANEU, MG, BMP, GFR #### [address] [address] .AUTO DIFF Collected: 01/21/2018 Status: F Source: [facility] 5:09 AM [facility] REPOSITORY TYPE CODE TESTS RESULT OUT OF REFERENCE UNITS RANGE LAB LEVON(LOINC) 50.0-75.0 % Neutrophil % 61.2 LAB LYM(LOINC) 20.0-40.0 % Lymphocyte % 24.3 LAB MON(LOINC) 2.0-13.0 % Monocyte % 12.0 LAB EO(LOINC) 0.0-6.0 % Eosinophil % 2.2 LAB BAS(LOINC) 0.0-2.5 % Basophil % 0.3 LAB ABLYM(LOIN 0.90-4.32 10 3/mcL C) Lymphocyte, 1.50 Absolute LAB PERFECTO(LOINC 0.09-1.40 10 3/mcL ) Monocyte, 0.80 Absolute LAB AEOS(LOINC 0.00-0.65 10 3/mcL ) Eosinophil, 0.10 Absolute LAB ABAS(LOINC 0.00-0.27 10 3/mcL ) Basophil, 0.00 Absolute Performed By: #### CBC, ADIFF, ANEU, MG, BMP, GFR #### [place] [address] .NEUABS Collected: 01/21/2018 Status: F Source: [facility] 5:09 AM [facility] REPOSITORY TYPE CODE TESTS RESULT OUT OF REFERENCE UNITS RANGE LAB ANEU(LOINC) 2.25-8.10 10 3/mcL Neutrophil, 3.90 Absolute Performed By: #### CBC, ADIFF, ANEU, MG, BMP, GFR #### [place] [address] MG Collected: 01/21/2018 Status: F Source: [facility] 5:09 AM [facility] REPOSITORY TYPE CODE TESTS RESULT OUT OF REFERENCE UNITS RANGE LAB MG(LOINC) 1.6-2.4 mg/dL Magnesium Lvl 1.7 Performed By: #### CBC, ADIFF, ANEU, MG, BMP, GFR #### [place] [address] BMP Collected: 01/21/2018 Status: F Source: [facility] 5:09 AM [facility] REPOSITORY TYPE CODE TESTS RESULT OUT OF REFERENCE UNITS RANGE LAB GLU(LOINC) 82-115 mg/dL Glucose Level 102 LAB NA(LOINC) 136-145 mEq/L Sodium Level 141 LAB K(LOINC) 3.5-5.0 mEq/L Potassium Level 4.1 LAB CL(LOINC) 98-110 mEq/L Chloride 108 LAB CO2(LOINC) 22-32 mEq/L CO2 26 LAB EBAL(LOINC 4.0-15.0 mEq/L ) Electrolyte Balance 7.0 LAB BUN(LOINC) 8.0-22.0 mg/dL BUN High 29.0 LAB CRE(LOINC) 0.50-1.20 mg/dL Creatinine High Lvl (s) 2.55 LAB BC(LOINC) 10.0-22.0 ratio BUN/Creatinine 11.4 Ratio LAB CA(LOINC) 8.4-10.1 mg/dL Calcium Lvl 8.7 Performed By: #### CBC, ADIFF, ANEU, MG, BMP, GFR #### [address] [address] .GFR Collected: 01/21/2018 Status: F Source: [facility] 5:09 AM [facility] REPOSITORY TYPE CODE TESTS RESULT OUT OF REFERENCE UNITS RANGE LAB GFRAA(LOINC ml/min/1.73 ) sqm GFR 23 [place] Result Comment: GFR Population mean for , Non- Americans Ages 20-29 = 116 mL/min/1.73 sq.m. Ages 30-39 = 107 mL/min/1.73 sq.m. Ages 40-49 = 99 mL/min/1.73 sq.m. Ages 50-59 = 93 mL/min/1.73 sq.m. Ages 60-69 = 85 mL/min/1.73 sq.m. Ages 70+ = 75 mL/min/1.73 sq.m. Chronic Kidney Disease: Less than 60 mL/min/1.73 square meters End Stage Renal Disease: Less than 15 mL/min/1.73 square meters LAB GFRNO(LOINC) ml/min/1.73sqm GFR Non- 19 Result Comment: GFR Population mean for , Non- Americans Ages 20-29 = 116 mL/min/1.73 sq.m. Ages 30-39 = 107 mL/min/1.73 sq.m. Ages 40-49 = 99 mL/min/1.73 sq.m. Ages 50-59 = 93 mL/min/1.73 sq.m. Ages 60-69 = 85 mL/min/1.73 sq.m. Ages 70+ = 75 mL/min/1.73 sq.m. Chronic Kidney Disease: Less than 60 mL/min/1.73 square meters End Stage Renal Disease: Less than 15 mL/min/1.73 square meters Performed By: #### CBC, ADIFF, ANEU, MG, BMP, GFR #### [address] [address] APTT Collected: 01/21/2018 Status: F Source: [facility] 5:09 AM [facility] REPOSITORY TYPE CODE TESTS RESULT OUT OF REFERENCE UNITS RANGE LAB PDOSE(LOIN C) Heparin dose Heparin IV (APTT) LAB APTT0(LOIN 25.0-35.0 seconds C) High APTT 48.8 Result Comment: For Heparin anticoagulation therapy, the recommended therapeutic range is: 54-77 seconds (APTT Correlation with Anti-Xa therapeutic range of 0.3-0.7 units/ml). PLEASE REFERENCE THE PHARMACY PROTOCOL FOR DOSING. Performed By: #### APTT, PRO #### [address] [address] PRO Collected: 01/21/2018 Status: F Source: [facility] 5:09 AM [facility] REPOSITORY Order Comment: ordered secondary to warfarin order TYPE CODE TESTS RESULT OUT OF REFERENCE UNITS RANGE LAB PT(LOINC) 9.0-14.5 seconds High Protime 17.9 Result Comment: Effective 05/24/08, Protime results may be affected by some antibiotics (i.e. Ciprofloxacin, Azithromycin, Bactrim) which may potentiate the action of oral anticoagulants, with further increases in Protime/INR. LAB INR(LOINC) ratio PT International Ratio 1.5 Result Comment: The [place] [employer] (CHEST, 1992, 102:312S-25S) recommended therapeutic range for oral anticoagulant therapy is: LOW RISK: Prophylaxis of venous thrombosis INR: 2.0-3.0 Treatment of pulmonary embolism 2.0-3.0 Prevention of systemic embolism 2.0-3.0 HIGH RISK: Mechanical prosthetic valves 2.5-3.5 Performed By: #### APTT, PRO #### [address] [address] APTT Collected: 01/20/2018 Status: F Source: [facility] 10:15 PM [facility] REPOSITORY TYPE CODE TESTS RESULT OUT OF REFERENCE UNITS RANGE LAB PDOSE(LOIN C) Heparin dose Heparin IV (APTT) LAB APTT0(LOIN 25.0-35.0 seconds C) High APTT 55.0 Result Comment: For Heparin anticoagulation therapy, the recommended therapeutic range is: 54-77 seconds (APTT Correlation with Anti-Xa therapeutic range of 0.3-0.7 units/ml). PLEASE REFERENCE THE PHARMACY PROTOCOL FOR DOSING. Performed By: #### APTT #### [address] [address] APTT Collected: 01/20/2018 Status: F Source: [facility] 2:03 PM [facility] REPOSITORY TYPE CODE TESTS RESULT OUT OF REFERENCE UNITS RANGE LAB PDOSE(LOIN C) Heparin dose Heparin IV (APTT) LAB APTT0(LOIN 25.0-35.0 seconds C) High APTT 86.6 Result Comment: For Heparin anticoagulation therapy, the recommended therapeutic range is: 54-77 seconds (APTT Correlation with Anti-Xa therapeutic range of 0.3-0.7 units/ml). PLEASE REFERENCE THE PHARMACY PROTOCOL FOR DOSING. Performed By: #### APTT #### [place] [address] IMMUN Collected: 01/20/2018 Status: F Source: [facility] 8:40 AM [facility] REPOSITORY TYPE CODE TESTS RESULT OUT OF RANGE REFERENCE UNITS LAB IGG(LOINC) 751-1560 mg/dL Low IgG 635 LAB IGA(LOINC) 82-453 mg/dL IgA 342 LAB IGM(LOINC) 46-304 mg/dL Low IgM 37 Performed By: #### IMMUN #### [place] [address] APTT Collected: 01/20/2018 Status: F Source: [facility] 6:41 AM [facility] REPOSITORY TYPE CODE TESTS RESULT OUT OF REFERENCE UNITS RANGE LAB PDOSE(LOIN C) Heparin dose Heparin IV (APTT) LAB APTT0(LOIN 25.0-35.0 seconds C) High APTT 49.0 Result Comment: For Heparin anticoagulation therapy, the recommended therapeutic range is: 54-77 seconds (APTT Correlation with Anti-Xa therapeutic range of 0.3-0.7 units/ml). PLEASE REFERENCE THE PHARMACY PROTOCOL FOR DOSING. Performed By: #### APTT #### [place] [address] PRO Collected: 01/20/2018 Status: F Source: [facility] 4:47 AM [facility] REPOSITORY Order Comment: ordered secondary to warfarin order TYPE CODE TESTS RESULT OUT OF REFERENCE UNITS RANGE LAB PT(LOINC) 9.0-14.5 seconds High Protime 19.4 Result Comment: Effective 05/24/08, Protime results may be affected by some antibiotics (i.e. Ciprofloxacin, Azithromycin, Bactrim) which may potentiate the action of oral anticoagulants, with further increases in Protime/INR. LAB INR(LOINC) ratio PT International Ratio 1.7 Result Comment: [employer] [place] [employer] (CHEST, 1991, 102:312S-25S) recommended therapeutic range for oral anticoagulant therapy is: LOW RISK: Prophylaxis of venous thrombosis INR: 2.0-3.0 Treatment of pulmonary embolism 2.0-3.0 Prevention of systemic embolism 2.0-3.0 HIGH RISK: Mechanical prosthetic valves 2.5-3.5 Performed By: #### PRO, CBC, YUDITH, ANEU #### [address] [address] CBC Collected: 01/20/2018 Status: F Source: [facility] 4:47 AM [facility] REPOSITORY TYPE CODE TESTS RESULT OUT OF REFERENCE UNITS RANGE LAB WBC(LOINC) 4.50-10.80 10 3/mcL WBC 5.80 LAB RBCCT(LOINC 4.10-5.30 10 6/mcL ) Low RBC 2.94 LAB HGB(LOINC) 12.0-16.0 G/dL Low Hgb 8.7 LAB HCT(LOINC) 34.0-46.0 % Low Hct 25.9 LAB MCV(LOINC) 80.0-99.0 fL MCV 88.3 LAB MCH(LOINC) 27.0-33.0 pg MCH 29.5 LAB MCHC(LOINC) 32.0-36.0 G/dL MCHC 33.4 LAB RDW(LOINC) 11.5-15.5 % RDW 15.2 LAB PLT(LOINC) 150-450 10 3/mcL Platelet 279 LAB MPV(LOINC) 6.6-10.5 fL MPV 7.1 Performed By: #### PRO, CBC, ADTYRON, ANEU #### [address] [address] .AUTO DIFF Collected: 01/20/2018 Status: F Source: [facility] 4:47 AM [facility] REPOSITORY TYPE CODE TESTS RESULT OUT OF REFERENCE UNITS RANGE LAB LEVON(LOINC) 50.0-75.0 % Neutrophil % 60.0 LAB LYM(LOINC) 20.0-40.0 % Lymphocyte % 24.1 LAB MON(LOINC) 2.0-13.0 % Monocyte High % 13.7 LAB EO(LOINC) 0.0-6.0 % Eosinophil % 2.0 LAB BAS(LOINC) 0.0-2.5 % Basophil % 0.2 LAB ABLYM(LOIN 0.90-4.32 10 3/mcL C) Lymphocyte, 1.40 Absolute LAB PERFECTO(LOINC 0.09-1.40 10 3/mcL ) Monocyte, 0.80 Absolute LAB AEOS(LOINC 0.00-0.65 10 3/mcL ) Eosinophil, 0.10 Absolute LAB ABAS(LOINC 0.00-0.27 10 3/mcL ) Basophil, 0.00 Absolute Performed By: #### PRO, CBC, ADIFF, ANEU #### [place] [address] .NEUABS Collected: 01/20/2018 Status: F Source: [facility] 4:47 AM [facility] REPOSITORY TYPE CODE TESTS RESULT OUT OF REFERENCE UNITS RANGE LAB ANEU(LOINC) 2.25-8.10 10 3/mcL Neutrophil, 3.50 Absolute Performed By: #### PRO, CBC, ADIFF, ANEU #### [place] [address] BMP Collected: 01/20/2018 Status: F Source: [facility] 4:47 AM [facility] REPOSITORY TYPE CODE TESTS RESULT OUT OF REFERENCE UNITS RANGE LAB GLU(LOINC) 82-115 mg/dL Glucose Level 112 LAB NA(LOINC) 136-145 mEq/L Sodium Level 142 LAB K(LOINC) 3.5-5.0 mEq/L Potassium Level 3.9 LAB CL(LOINC) 98-110 mEq/L Chloride 107 LAB CO2(LOINC) 22-32 mEq/L CO2 24 LAB EBAL(LOINC 4.0-15.0 mEq/L ) Electrolyte Balance 11.0 LAB BUN(LOINC) 8.0-22.0 mg/dL BUN High 28.0 LAB CRE(LOINC) 0.50-1.20 mg/dL Creatinine High Lvl (s) 2.73 LAB BC(LOINC) 10.0-22.0 ratio BUN/Creatinine 10.3 Ratio LAB CA(LOINC) 8.4-10.1 mg/dL Calcium Lvl 8.6 Performed By: #### BMP, GFR #### [place] [id number] .GFR Collected: 01/20/2018 Status: F Source: [facility] 4:47 AM [facility] REPOSITORY TYPE CODE TESTS RESULT OUT OF REFERENCE UNITS RANGE LAB GFRAA(LOINC ml/min/1.73 ) sqm GFR 21 [place] Result Comment: GFR Population mean for , Non- Americans Ages 20-29 = 116 mL/min/1.73 sq.m. Ages 30-39 = 107 mL/min/1.73 sq.m. Ages 40-49 = 99 mL/min/1.73 sq.m. Ages 50-59 = 93 mL/min/1.73 sq.m. Ages 60-69 = 85 mL/min/1.73 sq.m. Ages 70+ = 75 mL/min/1.73 sq.m. Chronic Kidney Disease: Less than 60 mL/min/1.73 square meters End Stage Renal Disease: Less than 15 mL/min/1.73 square meters LAB GFRNO(LOINC) ml/min/1.73sqm GFR Non- 18 Result Comment: GFR Population mean for , Non- Americans Ages 20-29 = 116 mL/min/1.73 sq.m. Ages 30-39 = 107 mL/min/1.73 sq.m. Ages 40-49 = 99 mL/min/1.73 sq.m. Ages 50-59 = 93 mL/min/1.73 sq.m. Ages 60-69 = 85 mL/min/1.73 sq.m. Ages 70+ = 75 mL/min/1.73 sq.m. Chronic Kidney Disease: Less than 60 mL/min/1.73 square meters End Stage Renal Disease: Less than 15 mL/min/1.73 square meters Performed By: #### BMP, GFR #### [facility] [address] [place] [address] APTT Collected: 01/19/2018 Status: F Source: [facility] 10:34 PM [facility] REPOSITORY TYPE CODE TESTS RESULT OUT OF REFERENCE UNITS RANGE LAB PDOSE(LOIN C) Heparin dose Heparin IV (APTT) LAB APTT0(LOIN 25.0-35.0 seconds C) High APTT 54.4 Result Comment: For Heparin anticoagulation therapy, the recommended therapeutic range is: 54-77 seconds (APTT Correlation with Anti-Xa therapeutic range of 0.3-0.7 units/ml). PLEASE REFERENCE THE PHARMACY PROTOCOL FOR DOSING. Performed By: #### APTT #### [address] [address] APTT Collected: 01/19/2018 Status: F Source: [facility] 2:43 PM [facility] REPOSITORY TYPE CODE TESTS RESULT OUT OF REFERENCE UNITS RANGE LAB PDOSE(LOIN C) Heparin dose Heparin IV (APTT) LAB APTT0(LOIN 25.0-35.0 seconds C) High APTT 81.7 Result Comment: For Heparin anticoagulation therapy, the recommended therapeutic range is: 54-77 seconds (APTT Correlation with Anti-Xa therapeutic range of 0.3-0.7 units/ml). PLEASE REFERENCE THE PHARMACY PROTOCOL FOR DOSING. Performed By: #### APTT #### [address] [address] UA Collected: 01/19/2018 Status: F Source: [facility] 7:14 AM [facility] REPOSITORY TYPE CODE TESTS RESULT OUT OF RANGE REFERENCE UNITS LAB SPCUA([place]) UA Specimen Type Void LAB CLRUA([place]) UA Color Yellow LAB APPUA([place] Clear NC) UA Appear Abnormal Cloudy LAB SGUA(LOIN 1.006-1.029 C) UA Spec Grav 1.010 LAB GLUA(LOIN Negative mg/dL C) UA Glucose Negative LAB BILUA([place] Neg-Trace NC) UA Bili Negative LAB KETUA([place] Neg-Trace mg/dL NC) UA Ketones Negative LAB BLDUA([place] Neg-Trace NC) UA Blood Abnormal Small LAB PHUA(LOIN 5.0 - 8.0 C) UA pH 6.0 LAB PROUA([place] Negative mg/dL NC) UA Protein Negative LAB UROUA([place] 0.2-1.0 E.U./dL NC) UA Urobilinogen 0.2 LAB NITUA([place] Negative NC) UA Nitrite Negative LAB LEUUA([place] Negative NC) UA Leuk Est Abnormal Large Performed By: #### UA, UAMIC #### [address] [address] UAMIC Collected: 01/19/2018 Status: F Source: [facility] 7:14 AM [facility] REPOSITORY TYPE CODE TESTS RESULT OUT OF RANGE REFERENCE UNITS LAB RBCUA(LOIN 0-2 /hpf C) UA RBC Rare LAB WBCUA(LOIN 0-5 /hpf C) UA WBC Abnormal LOADED LAB EPIUA(LOIN 0-20 /hpf C) UA Squam Epithelial 0-2 LAB MUCUA(LOIN /hpf C) UA Mucous 2+ LAB BACUA(LOIN Negative /hpf C) UA Abnormal Bacteria 4+ Performed By: #### UA, UAMIC #### [place] [address] Observed: 01/19/2018 Status: F Source: [facility] 7:14 AM [facility] REPOSITORY . MICRO - Microbiology PROCEDURE: Urine Culture [*1] SOURCE: Urine BODY SITE: COLLECTED DATE/TIME: 01/19/2018 07:14 EDT RECEIVED DATE/TIME: 01/19/2018 07:33 EDT START DATE/TIME: 01/19/2018 07:33 EDT FREE TEXT SOURCE: FINAL REPORTS Final Report [] Verified Date/Time/Personnel: 01/21/2018 08:04 EDT >100,000 organisms per mL Escherichia coli >100,000 organisms per mL Escherichia coli #2 PRELIMINARY REPORTS Preliminary Report [] Verified Date/Time/Personnel: 01/20/2018 11:00 EDT >100,000 organisms per mL Gram Negative Rods >100,000 organisms per mL Gram Negative Rods #2 Final identification and KARINA to follow. SUSCEPTIBILITY RESULTS Escherichia coli Antibiotic KARINA Dilutn KARINA Interp Ampicillin <=8 Susceptible Cefazolin <=8 Susceptible Ciprofloxacin <=1 Susceptible Gentamicin <=4 Susceptible Levofloxacin <=2 Susceptible Meropenem <=1 Susceptible Nitrofurantoin <=32 Susceptible Trimethoprim/ <=2/38 Susceptible Sulfa Escherichia coli #2 Antibiotic KARINA Dilutn KARINA Interp Ampicillin <=8 Susceptible Cefazolin <=8 Susceptible Ciprofloxacin <=1 Susceptible Gentamicin <=4 Susceptible Levofloxacin <=2 Susceptible Meropenem <=1 Susceptible Nitrofurantoin <=32 Susceptible Trimethoprim/ <=2/38 Susceptible Sulfa Performing Locations *1: This test was performed at: [facility], [address] [place] [address], [phone] , [facility] Performed By: #### CUR #### [address] [address] CBC Collected: 01/19/2018 Status: F Source: [facility] 5:37 AM [facility] REPOSITORY TYPE CODE TESTS RESULT OUT OF REFERENCE UNITS RANGE LAB WBC(LOINC) 4.50-10.80 10 3/mcL WBC 5.70 LAB RBCCT(LOINC 4.10-5.30 10 6/mcL ) Low RBC 2.97 LAB HGB(LOINC) 12.0-16.0 G/dL Low Hgb 8.7 LAB HCT(LOINC) 34.0-46.0 % Low Hct 25.9 LAB MCV(LOINC) 80.0-99.0 fL MCV 87.2 LAB MCH(LOINC) 27.0-33.0 pg MCH 29.2 LAB MCHC(LOINC) 32.0-36.0 G/dL MCHC 33.5 LAB RDW(LOINC) 11.5-15.5 % RDW 15.3 LAB PLT(LOINC) 150-450 10 3/mcL Platelet 282 LAB MPV(LOINC) 6.6-10.5 fL MPV 7.3 Performed By: #### CBC, ADIFF, ANEU, PRO, BMP, GFR #### [address] [address] .AUTO DIFF Collected: 01/19/2018 Status: F Source: [facility] 5:37 AM [facility] REPOSITORY TYPE CODE TESTS RESULT OUT OF REFERENCE UNITS RANGE LAB LEVON(LOINC) 50.0-75.0 % Neutrophil % 56.8 LAB LYM(LOINC) 20.0-40.0 % Lymphocyte % 28.7 LAB MON(LOINC) 2.0-13.0 % Monocyte % 11.5 LAB EO(LOINC) 0.0-6.0 % Eosinophil % 2.5 LAB BAS(LOINC) 0.0-2.5 % Basophil % 0.5 LAB ABLYM(LOIN 0.90-4.32 10 3/mcL C) Lymphocyte, 1.70 Absolute LAB PERFECTO(LOINC 0.09-1.40 10 3/mcL ) Monocyte, 0.70 Absolute LAB AEOS(LOINC 0.00-0.65 10 3/mcL ) Eosinophil, 0.10 Absolute LAB ABAS(LOINC 0.00-0.27 10 3/mcL ) Basophil, 0.00 Absolute Performed By: #### CBC, ADIFF, ANEU, PRO, BMP, GFR #### [place] [address] .NEUABS Collected: 01/19/2018 Status: F Source: [facility] 5:37 AM [facility] REPOSITORY TYPE CODE TESTS RESULT OUT OF REFERENCE UNITS RANGE LAB ANEU(LOINC) 2.25-8.10 10 3/mcL Neutrophil, 3.30 Absolute Performed By: #### CBC, ADIFF, ANEU, PRO, BMP, GFR #### [place] [address] PRO Collected: 01/19/2018 Status: F Source: [facility] 5:37 AM [facility] REPOSITORY TYPE CODE TESTS RESULT OUT OF REFERENCE UNITS RANGE LAB PT(LOINC) 9.0-14.5 seconds High Protime 23.5 Result Comment: Effective 05/24/08, Protime results may be affected by some antibiotics (i.e. Ciprofloxacin, Azithromycin, Bactrim) which may potentiate the action of oral anticoagulants, with further increases in Protime/INR. LAB INR(LOINC) ratio PT International Ratio 2.0 Result Comment: The [place] [employer] (CHEST, 1992, 102:312S-25S) recommended therapeutic range for oral anticoagulant therapy is: LOW RISK: Prophylaxis of venous thrombosis INR: 2.0-3.0 Treatment of pulmonary embolism 2.0-3.0 Prevention of systemic embolism 2.0-3.0 HIGH RISK: Mechanical prosthetic valves 2.5-3.5 Performed By: #### CBC, ADIFF, ANEU, PRO, BMP, GFR #### [place] [address] BMP Collected: 01/19/2018 Status: F Source: [facility] 5:37 AM [facility] REPOSITORY TYPE CODE TESTS RESULT OUT OF REFERENCE UNITS RANGE LAB GLU(LOINC) 82-115 mg/dL Glucose Level 83 LAB NA(LOINC) 136-145 mEq/L Sodium Level 141 LAB K(LOINC) 3.5-5.0 mEq/L Potassium Level 3.9 LAB CL(LOINC) 98-110 mEq/L Chloride 106 LAB CO2(LOINC) 22-32 mEq/L CO2 24 LAB EBAL(LOINC 4.0-15.0 mEq/L ) Electrolyte Balance 11.0 LAB BUN(LOINC) 8.0-22.0 mg/dL BUN High 27.0 LAB CRE(LOINC) 0.50-1.20 mg/dL Creatinine High Lvl (s) 2.44 LAB BC(LOINC) 10.0-22.0 ratio BUN/Creatinine 11.1 Ratio LAB CA(LOINC) 8.4-10.1 mg/dL Calcium Lvl 8.9 Performed By: #### CBC, ADIFF, ANEU, PRO, BMP, GFR #### [place] [address] .GFR Collected: 01/19/2018 Status: F Source: [facility] 5:37 AM [facility] REPOSITORY TYPE CODE TESTS RESULT OUT OF REFERENCE UNITS RANGE LAB GFRAA(LOINC ml/min/1.73 ) sqm GFR 24 [place] Result Comment: GFR Population mean for , Non- Americans Ages 20-29 = 116 mL/min/1.73 sq.m. Ages 30-39 = 107 mL/min/1.73 sq.m. Ages 40-49 = 99 mL/min/1.73 sq.m. Ages 50-59 = 93 mL/min/1.73 sq.m. Ages 60-69 = 85 mL/min/1.73 sq.m. Ages 70+ = 75 mL/min/1.73 sq.m. Chronic Kidney Disease: Less than 60 mL/min/1.73 square meters End Stage Renal Disease: Less than 15 mL/min/1.73 square meters LAB GFRNO(LOINC) ml/min/1.73sqm GFR Non- 20 Result Comment: GFR Population mean for , Non- Americans Ages 20-29 = 116 mL/min/1.73 sq.m. Ages 30-39 = 107 mL/min/1.73 sq.m. Ages 40-49 = 99 mL/min/1.73 sq.m. Ages 50-59 = 93 mL/min/1.73 sq.m. Ages 60-69 = 85 mL/min/1.73 sq.m. Ages 70+ = 75 mL/min/1.73 sq.m. Chronic Kidney Disease: Less than 60 mL/min/1.73 square meters End Stage Renal Disease: Less than 15 mL/min/1.73 square meters Performed By: #### CBC, ADIFF, ANEU, PRO, BMP, GFR #### [place] [address] APTT Collected: 01/19/2018 Status: F Source: [facility] 5:37 AM [facility] REPOSITORY TYPE CODE TESTS RESULT OUT OF REFERENCE UNITS RANGE LAB PDOSE(LOIN C) Heparin dose Heparin IV (APTT) LAB APTT0(LOIN 25.0-35.0 seconds C) High APTT 111.9 Result Comment: For Heparin anticoagulation therapy, the recommended therapeutic range is: 54-77 seconds (APTT Correlation with Anti-Xa therapeutic range of 0.3-0.7 units/ml). PLEASE REFERENCE THE PHARMACY PROTOCOL FOR DOSING. Performed By: #### APTT #### [place] [address] APTT Collected: 01/19/2018 Status: F Source: [facility] 1:02 AM [facility] REPOSITORY TYPE CODE TESTS RESULT OUT OF RANGE REFERENCE UNITS LAB PDOSE(LOIN C) Heparin dose Heparin IV (APTT) LAB APTT0(LOIN 25.0-35.0 seconds C) Abnormal APTT 181.1 Alert Result Comment: For Heparin anticoagulation therapy, the recommended therapeutic range is: 54-77 seconds (APTT Correlation with Anti-Xa therapeutic range of 0.3-0.7 units/ml). PLEASE REFERENCE THE PHARMACY PROTOCOL FOR DOSING. Performed By: #### APTT #### [place] [address] APTT Collected: 01/18/2018 Status: F Source: [facility] 7:49 PM [facility] REPOSITORY TYPE CODE TESTS RESULT OUT OF RANGE REFERENCE UNITS LAB PDOSE(LOIN C) Heparin dose Heparin IV (APTT) LAB APTT0(LOIN 25.0-35.0 seconds C) Abnormal APTT >200.0 Alert Result Comment: For Heparin anticoagulation therapy, the recommended therapeutic range is: 54-77 seconds (APTT Correlation with Anti-Xa therapeutic range of 0.3-0.7 units/ml). PLEASE REFERENCE THE PHARMACY PROTOCOL FOR DOSING. Performed By: #### APTT #### [place] [address] APTT Collected: 01/18/2018 Status: F Source: [facility] 2:43 PM [facility] REPOSITORY TYPE CODE TESTS RESULT OUT OF RANGE REFERENCE UNITS LAB PDOSE(LOIN C) Heparin dose Heparin IV (APTT) LAB APTT0(LOIN 25.0-35.0 seconds C) Abnormal APTT 169.8 Alert Result Comment: For Heparin anticoagulation therapy, the recommended therapeutic range is: 54-77 seconds (APTT Correlation with Anti-Xa therapeutic range of 0.3-0.7 units/ml). PLEASE REFERENCE THE PHARMACY PROTOCOL FOR DOSING. Performed By: #### APTT #### [place] [address] PARIE Collected: 01/18/2018 Status: F Source: [facility] 12:32 PM [facility] REPOSITORY TYPE CODE TESTS RESULT OUT OF REFERENCE UNITS RANGE LAB PARIE(LOINC Neg 20 ) Parietal Cell See Titer Ab Performed By: #### PARIE, PARIT, INTFCT #### [place] [address] .PARIT Collected: 01/18/2018 Status: F Source: [facility] 12:32 [facility] REPOSITORY TYPE CODE TESTS RESULT OUT OF REFERENCE UNITS RANGE LAB PARIT(LOINC Neg 20 ) Parietal Cell Pos 80 Ab Titer Result Comment: Parietal cell antibodies are found in 90% or more of patients with pernicious anemia. These antibodies are also present in a number of other conditions, such as chronic thyroiditis (33%), Sjorgrens syndrom (15%), atrophic gastritis (60%), and gastric ulcer (22%). These antibodies are also found in normal population varying with age from 2% in subjects below 20 years to 16% in subjects older than 60 years. Performed By: #### PARIE, PARIT, INTFCT #### [place] [address] INTAB Collected: 01/18/2018 Status: F Source: [facility] 12:32 PM [facility] REPOSITORY TYPE CODE TESTS RESULT OUT OF REFERENCE UNITS RANGE LAB INTAB(LOIN C) Intrinsic Negative Factor Ab Result Comment: Reference range: Negative (NOTE) Performed by [facility] [employer], [address] [place] [id number] [email or web address], Royer Walters MD, Lab. Director Performed By: #### JOANNE BLANCA, INTFCT #### [address] [address] CBC Collected: 01/18/2018 Status: F Source: [facility] 7:44 AM [facility] REPOSITORY TYPE CODE TESTS RESULT OUT OF REFERENCE UNITS RANGE LAB WBC(LOINC) 4.50-10.80 10 3/mcL WBC 6.30 LAB RBCCT(LOINC 4.10-5.30 10 6/mcL ) Low RBC 2.95 LAB HGB(LOINC) 12.0-16.0 G/dL Low Hgb 8.7 LAB HCT(LOINC) 34.0-46.0 % Low Hct 25.6 LAB MCV(LOINC) 80.0-99.0 fL MCV 86.8 LAB MCH(LOINC) 27.0-33.0 pg MCH 29.4 LAB MCHC(LOINC) 32.0-36.0 G/dL MCHC 33.9 LAB RDW(LOINC) 11.5-15.5 % RDW 15.0 LAB PLT(LOINC) 150-450 10 3/mcL Platelet 277 LAB MPV(LOINC) 6.6-10.5 fL MPV 6.9 Performed By: #### CBC, ADIFF, ANEU, APTT #### [place] [address] .AUTO DIFF Collected: 01/18/2018 Status: F Source: [facility] 7:44 [facility] REPOSITORY TYPE CODE TESTS RESULT OUT OF REFERENCE UNITS RANGE LAB LEVON(LOINC) 50.0-75.0 % Neutrophil % 62.1 LAB LYM(LOINC) 20.0-40.0 % Lymphocyte % 22.8 LAB MON(LOINC) 2.0-13.0 % Monocyte % 12.7 LAB EO(LOINC) 0.0-6.0 % Eosinophil % 1.8 LAB BAS(LOINC) 0.0-2.5 % Basophil % 0.6 LAB ABLYM(LOIN 0.90-4.32 10 3/mcL C) Lymphocyte, 1.40 Absolute LAB PERFECTO(LOINC 0.09-1.40 10 3/mcL ) Monocyte, 0.80 Absolute LAB AEOS(LOINC 0.00-0.65 10 3/mcL ) Eosinophil, 0.10 Absolute LAB ABAS(LOINC 0.00-0.27 10 3/mcL ) Basophil, 0.00 Absolute Performed By: #### CBC, ADIFF, ANEU, APTT #### [place] [id number] .NEUABS Collected: 01/18/2018 Status: F Source: [facility] 7:44 AM [facility] REPOSITORY TYPE CODE TESTS RESULT OUT OF REFERENCE UNITS RANGE LAB ANEU(LOINC) 2.25-8.10 10 3/mcL Neutrophil, 3.90 Absolute Performed By: #### CBC, ADIFF, ANEU, APTT #### [place] [address] APTT Collected: 01/18/2018 Status: F Source: [facility] 7:44 AM [facility] REPOSITORY TYPE CODE TESTS RESULT OUT OF REFERENCE UNITS RANGE LAB PDOSE(LOIN C) Heparin dose Coumadin PO (APTT) LAB APTT0(LOIN 25.0-35.0 seconds C) APTT 33.0 Result Comment: For Heparin anticoagulation therapy, the recommended therapeutic range is: 54-77 seconds (APTT Correlation with Anti-Xa therapeutic range of 0.3-0.7 units/ml). PLEASE REFERENCE THE PHARMACY PROTOCOL FOR DOSING. Performed By: #### CBC, ADIFF, ANEU, APTT #### [place] [address] PRO Collected: 01/18/2018 Status: F Source: [facility] 6:06 AM [facility] REPOSITORY Order Comment: ordered secondary to warfarin order TYPE CODE TESTS RESULT OUT OF REFERENCE UNITS RANGE LAB PT(LOINC) 9.0-14.5 seconds High Protime 28.5 Result Comment: Effective 05/24/08, Protime results may be affected by some antibiotics (i.e. Ciprofloxacin, Azithromycin, Bactrim) which may potentiate the action of oral anticoagulants, with further increases in Protime/INR. LAB INR(LOINC) ratio PT International Ratio 2.4 Result Comment: The [place] [employer] (CHEST, 1992, 102:312S-25S) recommended therapeutic range for oral anticoagulant therapy is: LOW RISK: Prophylaxis of venous thrombosis INR: 2.0-3.0 Treatment of pulmonary embolism 2.0-3.0 Prevention of systemic embolism 2.0-3.0 HIGH RISK: Mechanical prosthetic valves 2.5-3.5 Performed By: #### PRO #### [place] [id number] CBC Collected: 01/18/2018 Status: F Source: [facility] 6:06 [facility] REPOSITORY TYPE CODE TESTS RESULT OUT OF REFERENCE UNITS RANGE LAB WBC(LOINC) 4.50-10.80 10 3/mcL WBC 6.30 LAB RBCCT(LOINC 4.10-5.30 10 6/mcL ) Low RBC 2.86 LAB HGB(LOINC) 12.0-16.0 G/dL Low Hgb 8.5 LAB HCT(LOINC) 34.0-46.0 % Low Hct 24.6 LAB MCV(LOINC) 80.0-99.0 fL MCV 86.1 LAB MCH(LOINC) 27.0-33.0 pg MCH 29.9 LAB MCHC(LOINC) 32.0-36.0 G/dL MCHC 34.7 LAB RDW(LOINC) 11.5-15.5 % RDW 14.9 LAB PLT(LOINC) 150-450 10 3/mcL Platelet 278 LAB MPV(LOINC) 6.6-10.5 fL MPV 7.1 Performed By: #### CBC, ADIFF, ANEU, BMP, GFR #### [place] [address] .AUTO DIFF Collected: 01/18/2018 Status: F Source: [facility] 6:06 AM [facility] REPOSITORY TYPE CODE TESTS RESULT OUT OF REFERENCE UNITS RANGE LAB LEVON(LOINC) 50.0-75.0 % Neutrophil % 61.4 LAB LYM(LOINC) 20.0-40.0 % Lymphocyte % 24.7 LAB MON(LOINC) 2.0-13.0 % Monocyte % 11.4 LAB EO(LOINC) 0.0-6.0 % Eosinophil % 2.1 LAB BAS(LOINC) 0.0-2.5 % Basophil % 0.4 LAB ABLYM(LOIN 0.90-4.32 10 3/mcL C) Lymphocyte, 1.60 Absolute LAB PERFECTO(LOINC 0.09-1.40 10 3/mcL ) Monocyte, 0.70 Absolute LAB AEOS(LOINC 0.00-0.65 10 3/mcL ) Eosinophil, 0.10 Absolute LAB ABAS(LOINC 0.00-0.27 10 3/mcL ) Basophil, 0.00 Absolute Performed By: #### CBC, ADIFF, ANEU, BMP, GFR #### [place] [address] .NEUABS Collected: 01/18/2018 Status: F Source: [facility] 6:06 AM [facility] REPOSITORY TYPE CODE TESTS RESULT OUT OF REFERENCE UNITS RANGE LAB ANEU(LOINC) 2.25-8.10 10 3/mcL Neutrophil, 3.90 Absolute Performed By: #### CBC, ADIFF, ANEU, BMP, GFR #### [place] [address] BMP Collected: 01/18/2018 Status: F Source: [facility] 6:06 AM [facility] REPOSITORY TYPE CODE TESTS RESULT OUT OF REFERENCE UNITS RANGE LAB GLU(LOINC) 82-115 mg/dL Glucose Level 85 LAB NA(LOINC) 136-145 mEq/L Sodium Level 142 LAB K(LOINC) 3.5-5.0 mEq/L Potassium Level 4.1 LAB CL(LOINC) 98-110 mEq/L Chloride 107 LAB CO2(LOINC) 22-32 mEq/L CO2 26 LAB EBAL(LOINC 4.0-15.0 mEq/L ) Electrolyte Balance 9.0 LAB BUN(LOINC) 8.0-22.0 mg/dL BUN High 29.0 LAB CRE(LOINC) 0.50-1.20 mg/dL Creatinine High Lvl (s) 2.44 LAB BC(LOINC) 10.0-22.0 ratio BUN/Creatinine 11.9 Ratio LAB CA(LOINC) 8.4-10.1 mg/dL Calcium Lvl 9.0 Performed By: #### CBC, ADIFF, ANEU, BMP, GFR #### [place] [address] .GFR Collected: 01/18/2018 Status: F Source: [facility] 6:06 AM [facility] REPOSITORY TYPE CODE TESTS RESULT OUT OF REFERENCE UNITS RANGE LAB GFRAA(LOINC ml/min/1.73 ) sqm GFR 24 [place] Result Comment: GFR Population mean for , Non- Americans Ages 20-29 = 116 mL/min/1.73 sq.m. Ages 30-39 = 107 mL/min/1.73 sq.m. Ages 40-49 = 99 mL/min/1.73 sq.m. Ages 50-59 = 93 mL/min/1.73 sq.m. Ages 60-69 = 85 mL/min/1.73 sq.m. Ages 70+ = 75 mL/min/1.73 sq.m. Chronic Kidney Disease: Less than 60 mL/min/1.73 square meters End Stage Renal Disease: Less than 15 mL/min/1.73 square meters LAB GFRNO(LOINC) ml/min/1.73sqm GFR Non- 20 Result Comment: GFR Population mean for , Non- Americans Ages 20-29 = 116 mL/min/1.73 sq.m. Ages 30-39 = 107 mL/min/1.73 sq.m. Ages 40-49 = 99 mL/min/1.73 sq.m. Ages 50-59 = 93 mL/min/1.73 sq.m. Ages 60-69 = 85 mL/min/1.73 sq.m. Ages 70+ = 75 mL/min/1.73 sq.m. Chronic Kidney Disease: Less than 60 mL/min/1.73 square meters End Stage Renal Disease: Less than 15 mL/min/1.73 square meters Performed By: #### CBC, ADIFF, ANEU, BMP, GFR #### [address] [address] RETIC Collected: 01/17/2018 Status: F Source: [facility] 4:25 PM [facility] REPOSITORY TYPE CODE TESTS RESULT OUT OF REFERENCE UNITS RANGE LAB WENDY(LOINC) 0.2-2.3 % High Reticulocytes, 2.6 Auto LAB ARET(LOINC) 8.0-108.0 10 3/mcL Reticulocytes, 73.6 Absolute LAB IRF(LOINC) 0.20-0.46 IRF High Immature Retic 0.57 Fraction Performed By: #### RETIC, FES, FERR, B12, RF, HAPTO, KAPS, LAMS, IFES, SPE, MMA, FOLRBC #### [address] [address] FES Collected: 01/17/2018 Status: F Source: [facility] 4:25 [facility] REPOSITORY TYPE CODE TESTS RESULT OUT OF RANGE REFERENCE UNITS LAB FE(LOINC) 37-170 mcg/dL Iron 163 LAB IBC(LOINC) 250-500 mcg/dL TIBC 377 LAB FESAT(LOINC % ) Iron Sat 43 Performed By: #### RETIC, FES, FERR, B12, RF, HAPTO, KAPS, LAMS, IFES, SPE, MMA, FOLRBC #### [place] [address] FERR Collected: 01/17/2018 Status: F Source: [facility] 4:25 [facility] REPOSITORY TYPE CODE TESTS RESULT OUT OF REFERENCE UNITS RANGE LAB FERR(LOINC) 8-252 ng/mL Ferritin 14 Performed By: #### RETIC, FES, FERR, B12, RF, HAPTO, KAPS, LAMS, IFES, SPE, MMA, FOLRBC #### [place] [address] B12 Collected: 01/17/2018 Status: F Source: [facility] 4:25 [facility] REPOSITORY TYPE CODE TESTS RESULT OUT OF REFERENCE UNITS RANGE LAB B12(LOINC) 211-911 pg/mL Vitamin B12 297 Lvl Performed By: #### RETIC, FES, FERR, B12, RF, HAPTO, KAPS, LAMS, IFES, SPE, MMA, FOLRBC #### [place] [address] RF Collected: 01/17/2018 Status: F Source: [facility] 4:25 [facility] REPOSITORY TYPE CODE TESTS RESULT OUT OF REFERENCE UNITS RANGE LAB RF(LOINC) Rheumatoid <6.0 Factor Result Comment: RF IgM Antibody by Enzyme Immunoassay: Negative < or = 6 Positive > 6 A positive result indicates the presence of RF antibodies and suggests the possibility of rheumatoid arthritis. A negative result indicates no RF IgM antibody or levels below the negative cut-off of the assay. Results of this assay should be used in conjunction with clinical findings and other serological tests. These results were obtained with the [employer]ANT[employer] Lite RF IgM RAJ. RF IgM values obtained with different manufacturers' assay methods may not be used interchangeably. The magnitude of the reported IgM levels cannot be correlated to an endpoint titer. Performed By: #### RETIC, FES, FERR, B12, RF, HAPTO, KAPS, LAMS, IFES, SPE, MMA, FOLRBC #### [place] [address] HAPTO Collected: 01/17/2018 Status: F Source: [facility] 4:25 PM [facility] REPOSITORY TYPE CODE TESTS RESULT OUT OF REFERENCE UNITS RANGE LAB HAPTO(LOIN 36-195 mg/dL C) Haptoglobin 138 Performed By: #### RETIC, FES, FERR, B12, RF, HAPTO, KAPS, LAMS, IFES, SPE, MMA, FOLRBC #### [place] [address] KAPS Collected: 01/17/2018 Status: F Source: [facility] 4:25 PM [facility] REPOSITORY TYPE CODE TESTS RESULT OUT OF REFERENCE UNITS RANGE LAB KAPS(LOINC) 629-1350 mg/dL Low Serum [place] 483 Light Chains Performed By: #### RETIC, FES, FERR, B12, RF, HAPTO, KAPS, LAMS, IFES, SPE, MMA, FOLRBC #### [place] [address] LAMS Collected: 01/17/2018 Status: F Source: [facility] 4:25 [facility] REPOSITORY TYPE CODE TESTS RESULT OUT OF REFERENCE UNITS RANGE LAB LAMS(LOINC) 313-723 mg/dL Low Serum Lambda 246 Light Chains Result Comment: Demorest/Lambda Ratio: 1.96 Reference Range: 1.53 - 3.29 Performed By: #### RETIC, FES, FERR, B12, RF, HAPTO, KAPS, LAMS, IFES, SPE, MMA, FOLRBC #### [place] [id number] IFES Collected: 01/17/2018 Status: F Source: [facility] 4:25 PM [facility] REPOSITORY TYPE CODE TESTS RESULT OUT OF REFERENCE UNITS RANGE LAB IFES([place]) IFES Immunofixation Interpretation electrophoresis of serum shows the presence of only polyclonal immunoglobulins (IgG,A,M,[place] and Lambda), No monoclonal protein detected. Result Comment: Electronically Signed by: ERICKA BYRNES MD 01/19/2018 13:57 EDT Performed By: #### RETIC, FES, FERR, B12, RF, HAPTO, KAPS, LAMS, IFES, SPE, MMA, FOLRBC #### [place] [id number] SPE Collected: 01/17/2018 Status: F Source: [facility] 4:25 PM [facility] REPOSITORY TYPE CODE TESTS RESULT OUT OF REFERENCE UNITS RANGE LAB PROT(LOIN 6.0-8.5 G/dL C) Total Protein 6.3 LAB PEALB([place] 3.3-5.0 G/dL NC) Albumin 3.4 LAB PEA1(LOIN 0.1-0.4 G/dL C) Alpha 1 0.3 LAB PEA2(LOIN 0.6-1.2 G/dL C) Alpha 2 0.9 LAB PEB(LOINC 0.6-1.3 G/dL ) Beta 1.2 LAB PEGLB([place] 0.7-1.6 G/dL NC) Gamma Low 0.5 LAB PECOM([place]) SPE Interpretation The gamma globulins are decreased. This may be seen in: Result Comment: Electronically Signed by: ERICKA BYRNES MD 01/19/2018 13:57 EDT Performed By: #### RETIC, FES, FERR, B12, RF, HAPTO, KAPS, LAMS, IFES, SPE, MMA, FOLRBC #### [address] [address] MET Collected: 01/17/2018 Status: F Source: [facility] 4:25 PM [facility] REPOSITORY TYPE CODE TESTS RESULT OUT OF REFERENCE UNITS RANGE LAB MET(LOINC) 79-376 nmol/L Methylmalonic Acid 355 Result Comment: This test was developed and its performance characteristics determined by [facility]'s Gigi JLesli [facility] Pathology and Laboratory Medicine [place] ([facility]). It has not been cleared or approved by the FDA. -[facility] is regulated under CLIA as qualified to perform high-complexity testing. This test is used for clinical purposes. It should not be regarded as investigational or for research. Performed By: [facility] [address] [place] [address] Delivery Driver/Supervisor: Isis Gordon M.D. CLIA#: [id number] Phone#: Performed By: #### RETIC, FES, FERR, B12, RF, HAPTO, KAPS, LAMS, IFES, SPE, MMA, FOLRBC #### [address] [address] FOLRBC Collected: 01/17/2018 Status: F Source: [facility] 4:25 PM [facility] REPOSITORY TYPE CODE TESTS RESULT OUT OF REFERENCE UNITS RANGE LAB RFOLT(LOINC ) High RBC Folate 1506 Result Comment: Reference range: 499 to 1504 Unit: ng/mL (NOTE) Testing Performed: [facility], [address] [place] [address] [address] Performed By: Pathology [facility] [address] [place] [phone] Delivery Driver/Supervisor: Faisal Wolf M.D. CLIA#: [id number] Phone#: LAB RCHCT([facility]) Low RBC Hct 25.6 Result Comment: Reference range: 34.0 to 46.0 Unit: % Performed By: Pathology [facility] [address] [place] [phone] Delivery Driver/Supervisor: Faisal Wolf M.D. CLIA#: [id number] Phone#: Performed By: #### RETIC, FES, FERR, B12, RF, HAPTO, KAPS, LAMS, IFES, SPE, MMA, FOLRBC #### [address] [address] OCC (LAB) Collected: 01/17/2018 Status: F Source: [facility] 3:44 PM [facility] REPOSITORY TYPE CODE TESTS RESULT OUT OF REFERENCE UNITS RANGE LAB [address]955-0 Negative Negative HEMOGLOBIN.G ASTROINTESTI NAL Result Comment: This test utilizes the guaiac fecal blood method, which detects peroxidase activity (heme) indicating bleeding from stomach, small intestine, or large intestine. If bleeding from either upper or lower gastrointestinal tract is a clinical consideration, the [facility] recommends the use of both the guaiac fecal blood test and the Immunochemical fecal blood test. Performed By: #### OCC #### [address] [address] CBC Collected: 01/17/2018 Status: F Source: [facility] 8:54 AM [facility] REPOSITORY TYPE CODE TESTS RESULT OUT OF REFERENCE UNITS RANGE LAB WBC(LOINC) 4.50-10.80 10 3/mcL WBC 5.70 LAB RBCCT(LOINC 4.10-5.30 10 6/mcL ) Low RBC 2.70 LAB HGB(LOINC) 12.0-16.0 G/dL Low Hgb 8.0 LAB HCT(LOINC) 34.0-46.0 % Low Hct 23.6 LAB MCV(LOINC) 80.0-99.0 fL MCV 87.3 LAB MCH(LOINC) 27.0-33.0 pg MCH 29.6 LAB MCHC(LOINC) 32.0-36.0 G/dL MCHC 33.9 LAB RDW(LOINC) 11.5-15.5 % RDW 14.5 LAB PLT(LOINC) 150-450 10 3/mcL Platelet 275 LAB MPV(LOINC) 6.6-10.5 fL MPV 7.1 Performed By: #### CBC, ADIFF, ANEU, PRO, BMP, GFR #### [place] [address] .AUTO DIFF Collected: 01/17/2018 Status: F Source: [facility] 8:54 AM [facility] REPOSITORY TYPE CODE TESTS RESULT OUT OF REFERENCE UNITS RANGE LAB LEVON(LOINC) 50.0-75.0 % Neutrophil % 64.3 LAB LYM(LOINC) 20.0-40.0 % Lymphocyte % 23.3 LAB MON(LOINC) 2.0-13.0 % Monocyte % 10.4 LAB EO(LOINC) 0.0-6.0 % Eosinophil % 1.6 LAB BAS(LOINC) 0.0-2.5 % Basophil % 0.4 LAB ABLYM(LOIN 0.90-4.32 10 3/mcL C) Lymphocyte, 1.30 Absolute LAB PERFECTO(LOINC 0.09-1.40 10 3/mcL ) Monocyte, 0.60 Absolute LAB AEOS(LOINC 0.00-0.65 10 3/mcL ) Eosinophil, 0.10 Absolute LAB ABAS(LOINC 0.00-0.27 10 3/mcL ) Basophil, 0.00 Absolute Performed By: #### CBC, ADIFF, ANEU, PRO, BMP, GFR #### [place] [address] .NEUABS Collected: 01/17/2018 Status: F Source: [facility] 8:54 AM [facility] REPOSITORY TYPE CODE TESTS RESULT OUT OF REFERENCE UNITS RANGE LAB ANEU(LOINC) 2.25-8.10 10 3/mcL Neutrophil, 3.70 Absolute Performed By: #### CBC, ADIFF, ANEU, PRO, BMP, GFR #### [place] [address] PRO Collected: 01/17/2018 Status: F Source: [facility] 8:54 AM [facility] REPOSITORY TYPE CODE TESTS RESULT OUT OF REFERENCE UNITS RANGE LAB PT(LOINC) 9.0-14.5 seconds High Protime 34.4 Result Comment: Effective 05/24/08, Protime results may be affected by some antibiotics (i.e. Ciprofloxacin, Azithromycin, Bactrim) which may potentiate the action of oral anticoagulants, with further increases in Protime/INR. LAB INR(LOINC) ratio PT International Ratio 2.9 Result Comment: The [employer] (CHEST, 1992, 102:312S-25S) recommended therapeutic range for oral anticoagulant therapy is: LOW RISK: Prophylaxis of venous thrombosis INR: 2.0-3.0 Treatment of pulmonary embolism 2.0-3.0 Prevention of systemic embolism 2.0-3.0 HIGH RISK: Mechanical prosthetic valves 2.5-3.5 Performed By: #### CBC, ADIFF, ANEU, PRO, BMP, GFR #### [place] [address] BMP Collected: 01/17/2018 Status: F Source: [facility] 8:54 AM [facility] REPOSITORY TYPE CODE TESTS RESULT OUT OF REFERENCE UNITS RANGE LAB GLU(LOINC) 82-115 mg/dL Glucose High Level 133 LAB NA(LOINC) 136-145 mEq/L Sodium Level 141 LAB K(LOINC) 3.5-5.0 mEq/L Potassium Level 4.2 LAB CL(LOINC) 98-110 mEq/L Chloride 108 LAB CO2(LOINC) 22-32 mEq/L CO2 24 LAB EBAL(LOINC 4.0-15.0 mEq/L ) Electrolyte Balance 9.0 LAB BUN(LOINC) 8.0-22.0 mg/dL BUN High 33.0 LAB CRE(LOINC) 0.50-1.20 mg/dL Creatinine High Lvl (s) 2.45 LAB BC(LOINC) 10.0-22.0 ratio BUN/Creatinine 13.5 Ratio LAB CA(LOINC) 8.4-10.1 mg/dL Calcium Lvl 8.9 Performed By: #### CBC, ADIFF, ANEU, PRO, BMP, GFR #### [place] [address] .GFR Collected: 01/17/2018 Status: F Source: [facility] 8:54 AM [facility] REPOSITORY TYPE CODE TESTS RESULT OUT OF REFERENCE UNITS RANGE LAB GFRAA(LOINC ml/min/1.73 ) sqm GFR 24 Moroccan Result Comment: GFR Population mean for , Non- Americans Ages 20-29 = 116 mL/min/1.73 sq.m. Ages 30-39 = 107 mL/min/1.73 sq.m. Ages 40-49 = 99 mL/min/1.73 sq.m. Ages 50-59 = 93 mL/min/1.73 sq.m. Ages 60-69 = 85 mL/min/1.73 sq.m. Ages 70+ = 75 mL/min/1.73 sq.m. Chronic Kidney Disease: Less than 60 mL/min/1.73 square meters End Stage Renal Disease: Less than 15 mL/min/1.73 square meters LAB GFRNO(LOINC) ml/min/1.73sqm GFR Non- 20 Result Comment: GFR Population mean for , Non- Americans Ages 20-29 = 116 mL/min/1.73 sq.m. Ages 30-39 = 107 mL/min/1.73 sq.m. Ages 40-49 = 99 mL/min/1.73 sq.m. Ages 50-59 = 93 mL/min/1.73 sq.m. Ages 60-69 = 85 mL/min/1.73 sq.m. Ages 70+ = 75 mL/min/1.73 sq.m. Chronic Kidney Disease: Less than 60 mL/min/1.73 square meters End Stage Renal Disease: Less than 15 mL/min/1.73 square meters Performed By: #### CBC, ADIFF, ANEU, PRO, BMP, GFR #### [place] [address] PRO Collected: 01/17/2018 Status: F Source: [facility] 12:52 AM [facility] REPOSITORY Order Comment: ordered secondary to warfarin order TYPE CODE TESTS RESULT OUT OF REFERENCE UNITS RANGE LAB PT(LOINC) 9.0-14.5 seconds High Protime 41.1 Result Comment: Effective 05/24/08, Protime results may be affected by some antibiotics (i.e. Ciprofloxacin, Azithromycin, Bactrim) which may potentiate the action of oral anticoagulants, with further increases in Protime/INR. LAB INR(LOINC) ratio PT International Ratio 3.5 Result Comment: The [place] [employer] (CHEST, 1992, 102:312S-25S) recommended therapeutic range for oral anticoagulant therapy is: LOW RISK: Prophylaxis of venous thrombosis INR: 2.0-3.0 Treatment of pulmonary embolism 2.0-3.0 Prevention of systemic embolism 2.0-3.0 HIGH RISK: Mechanical prosthetic valves 2.5-3.5 Performed By: #### PRO #### [place] [address] TABO Collected: 01/17/2018 Status: F Source: [facility] 12:13 AM [facility] REPOSITORY TYPE CODE TESTS RESULT OUT OF RANGE REFERENCE UNITS LAB ABORH(LOINC ) Unknown ABO/Rh A POS Interp Performed By: #### ABORH, ANTIS #### [place] [address] TABS Collected: 01/17/2018 Status: F Source: [facility] 12:13 AM [facility] REPOSITORY TYPE CODE TESTS RESULT OUT OF REFERENCE UNITS RANGE LAB ANST(LOINC ) Antibody Negative ABSC Screen Tango Performed By: #### ABORH, ANTIS #### [place] [address] RBC (PRODUCT) Collected: 01/17/2018 Status: F Source: [facility] 12:02 AM [facility] REPOSITORY TYPE CODE TESTS RESULT OUT OF REFERENCE UNITS RANGE LAB RBCPR(LOINC ) RBC Product RBC Ready Ready for Pickup Performed By: #### RBCP #### [address] [address] HH Collected: 01/16/2018 Status: F Source: [facility] 11:12 PM [facility] REPOSITORY TYPE CODE TESTS RESULT OUT OF RANGE REFERENCE UNITS LAB HGB(LOINC) 12.0-16.0 G/dL Abnormal Alert Hgb 6.1 LAB HCT(LOINC) 34.0-46.0 % Low Hct 18.1 Performed By: #### #### [address] [address] PROTHROMBIN TIME AND Collected: 01/16/2018 Status: F Source: [facility] PM [facility] REPOSITORY TYPE CODE TESTS RESULT OUT OF REFERENCE UNITS RANGE LAB PROTHROMBIN TIME AND INR(LOINC) PROTHROMBIN TIME AND INR Result Comment: PROTHROMBIN TIME AND INR LAB PT-COUMADIN(LOINC) sec PT-COUMADIN 36.4 LAB INR(LOINC) 0.8 - 1.2 INR High 3.3 Result Comment: THE HEMOSIL THROMBOPLASTIN REAGENT USED IN THE PROTHROMBIN TIME TEST INTERACTS WITH THE DRUG CUBICIN (DAPTOMYCIN) AND WILL RESULT IN FALSELY ELEVATED PT / INR RESULTS INR INTERPRETATION INR INDICATION PREVENTION AND TREATMENT OF THROMBOEMBOLISM ASSOCIATED WITH: 2.0 - 3.0 ATRIAL FIBRILLATION, BIOPROSTHETIC HEART VALVES, PULMONARY EMBOLISM, VENOUS THROMBOSIS, SYSTEMIC EMBOLISM POST MYOCARDIAL INFARCTION 2.5 - 3.5 MECHANICAL HEART VALVES Performed By: #### [id number] #### [facility],[address] [place] [address] CBC (NO DIFF) Collected: 01/16/2018 Status: F Source: [facility] 3:14 PM [facility] REPOSITORY TYPE CODE TESTS RESULT OUT OF RANGE REFERENCE UNITS LAB CBC (NO DIFF)(LOINC ) CBC (NO DIFF) Result Comment: CBC(WITHOUT DIFFERENTIAL) LAB WBC(LOINC) 4.5 - 10.8 x 10EE3/UL WBC 7.4 LAB RBC(LOINC) 4.10 - x 10EE6/UL Low 5.30 RBC 2.37 LAB HEMOGLOBIN(LOINC 12.0 - g/dl ) Low 16.0 Alert HEMOGLOBIN 6.7 Result Comment: { CALLED TO YURIDIA @6527/ADL { READ BACK BY YURIDIA RA@1553 { TEST REPEATED LAB HEMATOCRIT(LOINC) 34.0 - % Low 46.0 Alert HEMATOCRIT 20.7 Result Comment: { CALLED TO YURIDIA @1557/ADL { READ BACK BY YURIDIA RA@1553 { TEST REPEATED LAB MCV(LOINC) 80 - 99 fl MCV 87 LAB MCH(LOINC) 27 - 33 pg MCH 28 LAB MCHC(LOINC) 32 - 36 X10 3 MCHC 32 LAB RDW/CV(LOINC) 12.0 - % 15.6 RDW/CV High 16.1 LAB PLATELET(LOINC) 150 - 450 x10EE3/UL PLATELET 377 LAB MPV(LOINC) 6.6 - 10.5 fl MPV 7.4 Result Comment: {CB] Performed By: #### [id number] #### [place] [address] RENAL FUNCTION PANEL Collected: 01/16/2018 Status: F Source: [facility] 3:14 PM [facility] REPOSITORY TYPE CODE TESTS RESULT OUT OF REFERENCE UNITS RANGE LAB RENAL FUNCTION PANEL(LOINC) RENAL FUNCTION PANEL Result Comment: RENAL FUNCTION PANEL LAB SODIUM(LOINC) 136 - 145 mmol/l SODIUM 141 LAB POTASSIUM(LOINC) 3.5 - 5.1 mmol/L POTASSIUM 4.9 LAB CHLORIDE(LOINC) 98 - 107 mmol/L CHLORIDE High 109 LAB GLUCOSE(LOINC) 74 - 106 mg/dl GLUCOSE High 109 LAB BUN(LOINC) 6 - 20 mg/dl BUN High 32 LAB CREATININE(LOINC) 0.6 - 1.2 mg/dl High CREATININE 2.4 LAB CALCIUM(LOINC) 8.6 - mg/dl 10.2 CALCIUM 9.1 LAB ALBUMIN(LOINC) 3.4 - 4.8 g/dL ALBUMIN 3.8 LAB B/C RATIO(LOINC) 0 - 30 ratio B/C RATIO 13 LAB CO2(LOINC) 21.0 - mmol/L 31.0 CO2 21.3 LAB PHOSPHORUS(LOINC) 2.7 - 4.5 mg/dl PHOSPHORUS 4.0 Performed By: #### [id number] #### [place] [address] IRON AND UIBC Collected: 01/16/2018 Status: F Source: [facility] 3:14 PM [facility] REPOSITORY TYPE CODE TESTS RESULT OUT OF RANGE REFERENCE UNITS LAB IRON(LOINC) 50 - 170 ug/dl Low IRON 21 LAB UIBC(LOINC) 155 - 355 ug/dL High UIBC 392 LAB TIBC(LOINC) 250 - 450 ug/dl TIBC 413 LAB Sat%(LOINC) 20 - 50 % Low Sat% 5 Performed By: #### [id number] #### [place] [address] FERRITIN Collected: 01/16/2018 Status: F Source: [facility] 3:14 PM [facility] REPOSITORY TYPE CODE TESTS RESULT OUT OF REFERENCE UNITS RANGE LAB FERRITIN(LO 10 - 291 ng/mL INC) FERRITIN 12 Performed By: #### [id number] #### [place] [address] URIC ACID Collected: 01/16/2018 Status: F Source: [facility] 3:14 PM [facility] REPOSITORY TYPE CODE TESTS RESULT OUT OF RANGE REFERENCE UNITS LAB URIC 2.3 - 6.6 mg/dl ACID(LOINC) URIC ACID 5.2 Performed By: #### [id number] #### [place] [address] URINE CREATININE,RANDOM Collected: Status: F Source: [facility] 01/16/2018 3:14 PM [facility] REPOSITORY TYPE CODE TESTS RESULT OUT OF REFERENCE UNITS RANGE LAB CREATININE mg/dl UR(LOINC) CREATININE UR 220.5 Performed By: #### [id number] #### [place] [address] URINE TOTAL PROTEIN Collected: 01/16/2018 Status: F Source: [facility] 3:14 PM [facility] REPOSITORY TYPE CODE TESTS RESULT OUT OF REFERENCE UNITS RANGE LAB URINE TOTAL 0.00 - 10.00 mg/dL PROTEIN(LOIN C) High URINE TOTAL 68.00 PROTEIN Performed By: #### [id number] #### [place] [address] PARATHYROID INTACT WITH Collected: 01/16/2018 Status: F Source[facility] [QUEST] 3:14 PM [facility] REPOSITORY TYPE CODE TESTS RESULT OUT OF REFERENCE UNITS RANGE LAB PARATHYROID INTACT WITH CALCIUM [QUEST](LOINC) PARATHYROID INTACT WITH CALCIUM [QUEST] Result Comment: _PARATHYROID HORMONE WITH CALCIUM_ PTH, INTACT AND CALCIUM Reported: 01/19/2018 20:47 Status=F TEST RESULT FLAG RANGE UNITS PARATHYROID HORMONE, 167 H 14-64 pg/mL 01/19/18.rfl.COMPLETE.AMRR .2731-8 INTACT For additional information, please refer to [email or web address] CALCIUM 9.2 8.6-10.4 mg/dL 01/19/18.rfl.COMPLETE.AMRR .21177-2 NOMOGRAM: see below 01/19/18.rflLesliCOMPLETE.[facility] Guide to Interpretation: Intact PTH 450* * ! 410* ! * ! I 370* ! N * ! T 330* ! A * ! C 290* SECONDARY ! PRIMARY OR TERTIARY T * HYPER- ! HYPER- 250* PARATHYROIDISM ! PARATHYOIDISM P * ! T 210* ! H * ! 170* # ! p * ! g 130* ! / * ! m 90* ! L * 50* !NORMAL ! * ! ! NON PARATHYROID 14* ! HYPERCALCEMIA * ! ! 5*HYPOPARATHYROID.! ! 0*-*----*----*----*----*----*----*----*----*----*- 6 7 8 9 10 11 12 13 14 15 Calcium mg/dL APPROXIMATE PLOT POSITION OF THIS PATIENT'S RESULTS IS INDICATED BY THE SYMBOL '#' Nomogram applies only to adult reference ranges. Test Performed by [employer], [employer] [facility], [address] [place] [address] Billy Barrett M.D., Ph.D., Director of Laboratories , [facility] [id number] Performed By: #### [id number] #### [facility],[address] [place] [address] ALLERGIES ALLERGIES DATE TYPE / CODE NAME / CODE REACTION SEVERITY SOURCE 08/04/2018 Drug No Known Unknown [place] Allergy/522117245(S Allergies/F[address] [place]) [address](RXNORM) Hospital Repository Miscellaneous No Known Moderate [facility] Allergy/699907740(S Allergies (Severity [facility]) Modifier) Hospital (Qualifier Repository Value) ENCOUNTERS ENCOUNTERS ADMIT/DISCHARGE ACCOUNT NUMBER ADMITTING ENCOUNTER LOCATION SOURCE CLASS 11/26/2018 [id number] [facility] ding:BFHLAB Repository 11/12/2018 [id number] [facility] ding:BFHLAB Repository 10/12/2018/10/12/20 [id number] YOLI, Ambulatory [place] [address] [facility] 09/01/2018/10/09/20 [id number] JONES, [facility] 08/04/2018/08/04/20 [id number] Ambulatory BMSBuilding: [place] 18 [facility] Repository 06/26/2018 [id number] [facility] ding:RAD Repository 06/22/2018 [id number] [facility] ding:LAB.FUT Repository URE 06/15/2018 [id number] [facility] ding:RAD Repository 06/11/2018/06/11/20 [id number] Ambulatory BMSBuilding: [place] 18 BMS.[facility] Repository 05/19/2018 [id number] Ambulatory [facility] ding:HPRAD Repository 05/19/2018/05/19/20 [id number] Ambulatory BMSBuilding: [place] 18 BMS.[facility] Repository 04/23/2018/04/23/20 [id number] [facility], Ambulatory [place] 18 [facility] Repository 04/23/2018/04/23/20 [id number] [facility], Ambulatory [place] 18 [facility] Repository 02/13/2018 [id number] Ambulatory [facility] ding:LAB.FUT Repository URE 01/28/2018 [id number] Ambulatory RBuilding:JUAN Pro [facility] Repository 01/16/2018/01/28/20 [id number] FATEHCHAND, Inpatient ABuilding:YOLIE Alas ANODIKA Encounter 5Room: Health 5552Bed: [facility] Repository 01/16/2018/01/17/20 [id number] SNOW, Emergency [address] [place] [address] 18 [facility] Room: ERBed: [facility] Repository 01/16/2018/01/17/20 [id number] [facility], Ambulatory [place] 18 [facility] Repository 01/16/2018/01/17/20 [id number] [facility] [place] 18 [facility] Repository 12/09/2017 [id number] [facility] Repository PAYERS PAYERS ENCOUNTER GUARANTOR PAYER SUBSCRIBER SOURCE 11/26/2018 DEBBIE L Primary DEBBIE L [place] [id number] TR Insurance:MEDICARE MAYSTASDDOB: [address], PART A BPolicy Number: [id number] [address]Wsb: [id number] Repository Date:2018-11-26 () 11/26/2018 Secondary DEBBIE L [place] Insurance[facility]PNY[facility] Number: [id number] Hospital [id number] Repository Date:4180-07-75[address], [place] [address]IF: 11/26/2018 Tertiary NOT GIVENUNK [place] Insurance:SELF PAY [facility] Number: Effective Repository Date:2018-11-26 11/12/2018 DEBBIE L Primary DEBBIE Mario [id number] TR Insurance:MEDICARE MAYNARDDOB: [address], PART A BPolicy Number: [id number] Juan [facility] Medical Center [address]Ffx: [id number] Repository Date:2018-11-12 () 11/12/2018 Secondary DEBBIE L [place] Insurance:ANTHEMPolicy MAYNARDDOB: [facility] Number: [id number] Hospital [id number] Repository Date:7362-12-60[address]FC, [place] [address]KW: 11/12/2018 Tertiary NOT GIVENUNK [place] Insurance:SELF PAY [facility] Number: Effective Repository Date:2018-11-12 10/12/2018 DEBBIE Primary DEBBIE Cruz MAYNARDDOB: Insurance:MEDICARE MAYNARDDOB: [facility] OUTPATIENTPolmercyone [facility] [id number] Number: 3 [facility] Repository [address] [place] [address], [id number] [address]Ntx: Date:Plan Name: [id number] () 09/01/2018 DEBBIE Primary DEBBIE Cruz MAYNARDDOB: Insurance:MEDICARE MAYNARDDOB: [facility] RECURRING REFERENCE [id number] LABPolicy Number: 3 [facility] Repository [address] [place] [address] [id number] [address]Jgu: Date:Plan Name:[facility] [id number] () 08/04/2018 DEBBIE L Primary DEBBIE Mario [id number] TR Insurance:MEDICARE MAYNARDDOB: [address], PART A BPolicy Number: [id number] Juan Regional Medical Center [address]Czq: [id number] Repository Date:2018-07-09 () 08/04/2018 Secondary NOT GIVENUNK [place] Insurance:SELF PAY [facility] Number: Effective Repository Date:2018-07-21 06/26/2018 DEBBIE L Primary DEBBIE L [place] [id number] TR Insurance:MEDICARE MARCHNARDDOB: [address], PART A BPolicy Number: [id number] Juan [facility] Medical Center [address]Zjy: [id number] Repository Date:2018-06-10 () 06/26/2018 Secondary NOT GIVENUNK [place] Insurance:SELF PAY [facility] Number: Effective Repository Date:2018-06-10 06/22/2018 DEBBIE L Primary DEBBIE L [place] [id number] TR Insurance:MEDICARE MARCHNARDDOB: [address], PART A BPolicy Number: [id number] Juan Regional Medical Center [address]Pgz: [id number] Repository Date:2018-02-17 () 06/22/2018 Secondary NOT GIVENUNK [place] Insurance:SELF PAY [facility] Number: Effective Repository Date:2018-02-17 06/15/2018 Debbie L Primary Debbie L [place] [id number] TR Insurance:MEDICARE MarchnardDOB: [address], PART A BPolicy Number: [id number] Juan [facility] Medical Center [address]Jij: [id number] Repository Date:2018-05-28 () 06/15/2018 Secondary NOT GIVENUNK [place] Insurance:SELF PAY [facility] Number: Effective Repository Date:2018-05-28 06/11/2018 DEBBIE L Primary DEBBIE L [place] [id number] TR Insurance:MEDICARE MAYNARDDOB: [address], PART A BPolicy Number: [id number] Juan Regional Medical Center [address]Apb: [id number] Repository Date:2018-05-21 () 06/11/2018 Secondary NOT GIVENUNK [place] Insurance:SELF PAY [facility] Number: Effective Repository Date:2018-06-11 05/19/2018 Debbie Chamorro Primary Debbie [place] [id number] Insurance:MEDICARE MaynardDOB: [facility] PART A BPolicy Number: [id number] [id number] Repository [place] [address]Dnu: Date:2018-05-19 () 05/19/2018 Secondary NOT GIVENUNK [place] Insurance:SELF PAY [facility] Number: Effective Repository Date:2018-05-19 05/19/2018 Debbie Chamorro Primary Debbie Mario [id number] Insurance:MEDICARE MaynardDOB: [facility] PART A BPolicy Number: [id number] [id number] Repository [place] [address]Rth: Date:2018-03-04 () 05/19/2018 Secondary NOT GIVENUNK [place] Insurance:SELF PAY [facility] Number: Effective Repository Date:2018-05-19 04/23/2018 DEBBIE Primary DEBBIE Cruz MARCHSTASDDOB: Insurance:MEDICARE MAYNARDDOB: [facility] [id number] Number: [id number] [address]Cwh: Date:Plan Name: [id number] () 04/23/2018 DEBBIE Primary DEBBIE Cruz MARCHSTASDDOB: Insurance:MEDICARE MAYNARDDOB: [facility] [id number] Number: [address] [facility] [id number] [place] [address]Iaz: Date:Plan Name: [id number] () 02/13/2018 Debbie L Primary Debbie L [place] [id number] Insurance:MEDICARE MaynardDOB: [facility] PART A BPolicy Number: [id number], [id number] Repository [place] [address]Pgf: Date:2017-06-23 ~33 0-9 (HP) 02/13/2018 Secondary NOT GIVENUNK [place] Insurance:SELF PAY [facility] Number: Effective Repository Date:2017-06-23 01/28/2018 DEBBIE L Primary Insurance:SELF DEBBIE [employer] MAYNARDDOB: PAYPolicy Number: MAYNARDDOB: [facility] [id number] Effective [id number] Repository [address] Date:2018-01-[address] [place] [address] [id number] Name:[address] [place] [id number]: [place] [address]Wkz: () (HP) (WP) 01/28/2018 [facility] MAYNARDDOB: [facility] PART BPolicy Number: [id number] Repository [id number] Date:2018-01-[address] [place] [address] [id number] [place] [address]Whe: Name:[facility] (HP)Tel: 000) [address] [address]Xdqwtphvy, [place] [phone] (WP) [id number]: 01/16/2018 DEBBIE L Primary [facility] MARCHNARDDOB: Insurance:MEDICARE MAYNARDDOB: [facility] [id number] PART APolicy Number: [id number] Repository [address] [id number] [address] [place] [address], Date:2017-11-[address] [place] [id number]: [id number] [place] [address]Xam: Name:MMail Code (HP) [address] (HP)Tel: ([phone], [place] 000-0000 (WP) [phone]: 01/16/2018 Secondary DEBBIE [facility] [employer] [facility] PART BPolicy Number: [id number] Repository [id number] [address] Date:2017-05-24 - [address] [place] [address], [id number] [place] [address]Cdh: Name:[facility] Administrators LLCPO (HP)Tel: (000) [address] [address]Cqyserxkv, [place] [phone] (WP) [phone]: 01/16/2018 DEBBIE Primary DEBBIE Cruz MARCHNARDDOB: Insurance:MEDICARE MARCHNARDDOB: [facility] [id number] [address] Number: [address] Repository [address] [place] [id number] [address] [place] [address]Ztm: Date:Plan Name:[facility] [id number] () 01/16/2018 DEBBIE Primary DEBBIE Cruz MARCHNARDDOB: Insurance:MEDICARE MAYNARDDOB: [facility] [id number] [address] Number: [address] Repository [address] [place] [address] [id number] [address] [place] [address]Xqz: Date:Plan Name:[facility] [id number] () 01/16/2018 DEBBIE Primary DEBBIE Cruz MARCHNARDDOB: Insurance:[facility] [id number] [address] Number: [address] Repository [address] [place] [address], [id number] [address] [place] [id number]: Date:Plan Name:[facility] [id number] () 12/09/2017 DEBBIE Primary EDBBIE Cruz MARCHSTASDDOB: Insurance:MEDICARE MAYNARDDOB: [facility] [id number] [facility] [id number] [facility] [address] Number: [address] Repository [address] [place] [address], [id number] [address]Onp: Date:Plan Name:[facility] [address] (hp)
== END ==
PROVIDERS: Family Provider Family Medicine; PCP Family Medicine; Visit Provider Family Medicine
DX: N02.8 Recurrent and persistent hematuria with other morphologic changes (principal); N18.4 Chronic kidney disease, stage 4 (severe); R30.0 Dysuria
CPT/HCPCS: 36415; 80053; 81001; 85025; 87086; 87088

== ENCOUNTER → 2021-06-04 14:20 | Outpatient (CLI) | payer MEDICARE, SELFPAY ==
--- NOTE | 2021-06-04 14:34 | CT_ITS ---
STUDY: CT LEFT FEMUR WITHOUT CONTRAST REASON FOR EXAM: Female, 65 years old. TRAUMA RADIATION DOSAGE (If Supplied By Facility): CTDIvol = ( 12.73 ) mGy, DLP = ( 806.16 ) mGycm TECHNIQUE: Transaxial CT imaging of the femur was performed. Sagittal and coronal images were reconstructed. 3-D images were reconstructed. Individualized dose optimization techniques were used for this CT. COMPARISON: None. FINDINGS: Diffuse osteopenia. Multilevel degenerative disease including the distal lumbar spine, bilateral SI joints and bilateral hips. Post ORIF surgery through the left femur. No acute fracture. Severe degenerative disease of bilateral knees. Diverticulosis throughout the sigmoid. Remainder of the pelvis structures unremarkable. Lucency through the superior aspect of the left femoral head, cannot exclude focus of avascular necrosis. CT/Extremity Lower without Contra IMPRESSION: Cannot exclude focus of avascular necrosis involving the superior aspect of the left femoral head. Post ORIF surgery of the left femur with no acute fracture demonstrated. Degenerative disease of bilateral knees and hips. Electronically Signed: Yeni Marie MD at 2:51 EDT , Service support ,
== END ==
PROVIDERS: PCP Student in an Organized Health Care Education/Training Program; Referring Provider Specialist; Visit Provider Specialist
DX: M87.252 Osteonecrosis due to previous trauma, left femur (principal)
CPT/HCPCS: 73700

== ENCOUNTER 2021-06-13 15:29 | Inpatient (IN) | payer MEDICARE, SELFPAY ==
[2018-06-26 12:24] VITALS: BMI 34.0
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
--- NOTE | 2021-06-04 14:18 | EKG12_ITS ---
Test Reason : PREOP Blood Pressure : / mmHG Vent. Rate : 074 BPM Atrial Rate : 074 BPM P-R Int : 136 ms QRS Dur : 082 ms QT Int : 382 ms P-R-T Axes : 050 022 038 degrees QTc Int : 424 ms Normal sinus rhythm Normal ECG Confirmed by NATHAN WOLF, HARI ([id number]), pet store merchandiser MALLIKA FULLER ([id number]) on 06/05/2021 10:34:57 AM Referred By: Jesus Alegre Confirmed By:HARI EVANS MD
[2021-06-04 16:40] LABS: Magnesium 2.5 mg/dL (1.6-2.6)
[2021-06-13] VITALS (12 sets, daily range): BP systolic 102–144; BP diastolic 49–82; PULSE 72–83; RESP 16–18; TEMP 36.2–36.6; O2SAT 94–100; BMI 33.7
--- NOTE | 2021-06-13 | HIP_PTH ---
PATIENT: DEBBIE OLIVER LOC: MS3 U#:[id number] AGE/SX: 65/F ROOM: IN323 RE06/13/[address]: Dr. Jesus Alegre MD : 1955 BED: 1 DIS: 06/15/2021 SPEC #: [id number] RECD: 06/14/21 06:54 STATUS: RONNY REYNOLDS #: [id number] SHELL: 06/13/21 00:[address]: Jesus Alegre DEPT: SURGICAL PATHOLOGY RECD BY: Jarret Otero ENTERED: 06/14/21 08:22 SP TYPE: TOTAL HIP OTHR DR: MD Dr. Emani Ferguson MD Tissues: Hip, NOS Procedures: Decalcification bone/plaque Surgery Specimen Level IV HEADER OPERATION: ERAS, total hip replacement robotic arm assist PRE-OP DIAGNOSIS: Left hip osteoarthritis and avascular necrosis TISSUE SUBMITTED: Femoral head MICROSCOPIC DIAGNOSIS Bone and soft tissue of left hip, total hip resection: Consistent with avascular necrosis. AM:chen 06/20/2021 MICROSCOPIC DESCRIPTION Slides are reviewed. GROSS DESCRIPTION Received is one container designated bone and soft tissue, left head. The specimen consists of a helm femoral head with portion of femoral neck. The femoral head measures 5 x 5 x 4 cm and the femoral neck measures 0.7 cm in length. The articular surface displays prominent osteophyte formation and bone erosion. No soft tissue is identified. Hone Operator sections are submitted in two cassettes after decalcification. / CAESAR:chen 06/14/21 TC:5 CPT: 18068, 23302
[2021-06-13] MEDS: Lactated Ringers 1,000 ML 75 ML IV ×2 (10:55→13:00)
[2021-06-13] MEDS: Lactated Ringers 1,000 ML 999 ML IV ×2 (10:55→14:30)
[2021-06-13] MEDS: Gabapentin 600 MG Tablet PO (10:56)
[2021-06-13] MEDS: Acetaminophen 500 MG Tablet 1000 MG PO ×2 (10:56→22:02)
[2021-06-13 11:20] LABS: Bedside Glucose 127 mg/dL (70-110)
[2021-06-13 12:04] LABS: International Normalized Ratio 1.3; Prothrombin Time (Protime)PT. 15.8 SECONDS (11.7-14.9)
[2021-06-13] MEDS: Cefazolin 2 GM in 0.9% Normal Saline 100 ML IV (12:57)
[2021-06-13 13:15] LABS: INR Fingerstick 1.7; Prothrombin Time Fingerstick 19.9 SEC (11.9-14.4)
--- NOTE | 2021-06-13 15:32 | PCM.OPRPT ---
Report of Operation Date of Procedure: 06/13/21 Pre-Operative Diagnosis: Left hip intertrochanteric fracture malunion, left hip avascular necrosis, posttraumatic Post-Operative Diagnosis: Left hip intertrochanteric fracture malunion, left hip posttraumatic avascular necrosis Surgery/Procedure Performed:: Conversion of left intertrochanteric nail to robotic assisted left posterior total hip replacement Description of Surgical Findings:: Stable hip with equal leg lengths. Fracture appears well-healed. Based on robotic navigation leg lengths were equal. Hip was stable. Surgeon: Jesus Alegre employment security officer: Romeo Jules Type of Anesthesia: General Anesthesiologist: Parviz Hines Special Medications: 2 g Ancef, 2 g of TXA topical, 10 mg Decadron, joint cocktail (5 mg Duramorph, 30 mL of 0.5% Ropivicaine, 1000 units of epinephrine, 30 mg of Toradol) Specimen's removed: 3 separate specimens were sent to microbiology. Estimated Blood Loss (mL): 500 Fluids Replaced: 1700 mL crystalloid Description of Procedure: Components used: 1. Ashlyn methodist modular 19 mm x 155 mm stem 2. Brandon Trident 2, 54 mm acetabular shell 3. Ashlyn X3 polyethylene liner, alpha code E 4. Ashlyn Biolox delta 36 mm, 7.5 mm neck femoral head 4. Brandon methodist modular 23mm, +0 mm: Body Brief history operative indications: 65-year-old female with previous left intertrochanteric hip fracture. Patient had varus alignment and healing. Fracture was healed well. She had shortening of the extremity. In addition she developed avascular necrosis and progressive joint space narrowing consistent with avascular necrosis and osteoarthritis. Risks and benefits were discussed with the patient which included but were not limited to blood loss, DVTs, PEs, infection, neurovascular damage, and dislocation. In light of all this patient did agree to proceed with a total hip arthroplasty. Procedure: On the date of procedure the patient's L hip was marked in the preoperative area. Patient was then taken back to the operating room where anesthesia assumed control of the C-spine and airway and administered anesthetic. Patient was transferred to the operating table and placed in the lateral decubitus position with the affected hip up. The patient was secured in the bed with the lateral positioners and leg lengths were checked. The L lower extremity was then prepped out in a sterile fashion using chlorhexidine while the surgeon scrubbed. Upon reentering the room the L lower extremity was draped in the standard orthopedic fashion and the incision was marked. A timeout was called and everyone agreed upon the side, the site, the procedure be performed, antibiotics given, and patient's identity. At this time incision was made through skin, subcutaneous tissue, and fat down to fascia. The fascia was then incised and a Charley retractor was placed. At this point we were able to identify the bursa. Bursa was resected. We were then able to identify the nail proximally we followed it down and were able to identify the lag screws. The lag screw and the machine screw were removed. Cultures were taken from inside the nail as well as from inside the screws. Once the lag screws were removed the extraction bolt was placed into the proximal nail. Was then extracted. The checkpoint was placed in the trochanter. Checkpoint was registered for leg lengths. The soft tissue was then cleared from the posterior external rotators and the piriformis was identified. Piriformis was taken down and tagged. The remainder of the short external rotators were taken down. Capsulotomy was made and the posterior capsule was tagged. The retractors were then placed inside the capsule. The femoral head was dislocated. A neck cut was made based on preoperative planning. We were able to obtain cultures from the lag screw holes of the neck for final set of cultures. Attention was then turned to the femur where the proximal femur was appropriately exposed using a roa retractor. The box sealing inspector was used to remove the lateral bone. Canal finder was used to verify the canal. The proximal femoral femur was then reamed with flexible reamers. Once this was done Our attention was then directed to the acetabulum and the anterior retractor was placed and a Gelpi was used to retract the posterior capsule superiorly. All soft tissue debris was removed from the pulvinar and labrum of the joint. Acetabulum was then registered with the robotic system. Once we registered it we elected to proceed with our preoperative plan a 54 mm cup. The acetabulum was then reamed to 54 millimeters using the robotic arm. At this time a and 54 mm Ashlyn Trident cup was opened and impacted into place using the robotic arm. Once it was securely fastened the wound was copiously irrigated out with normal saline and the acetabular liner was impacted into place. Our attention was again turned towards the femur and the hip was reamed with a conical reamers up to 19 mm 455 mm stem. Once were happy with our reaming we then impacted the stem after opening it. Once this was completed we reamed proximally to 23 mm for a cone body. A 23+0 mm cone body was trialed with a 36+7.5 mm femoral head. The hip was properly reduced using traction and external rotation. Stability was checked with the appropriate amount of shuck, no impingement with external rotation, and stable at 90? flexion and 45 ? internal rotation. Leg lengths were checked and were found to be equal on the table as well as with robotics. Once the hip was determined to be stable the trial components were dislocated and the trial body was removed. Final cone body was opened and impacted into place. Trunnion was cleaned and final femoral head was impacted into place. The wound was copiously irrigated out with normal saline. The acetabulum was checked for any residual debris. The final components were placed and impacted. Traction and external rotation were again used to reduce the hip. After adequate reduction the hip remained stable with appropriate leg lengths. The wound was then copiously irrigated with normal saline once more, and hemostasis was obtained. The posterior capsule and piriformis were repaired through drill holes to the greater trochanter . Closure was then done using #1 Vicryl to close the fascia. A 2-0 Vicryl interrupted sutures were used to close the subcutaneous skin. Skin madeline were used for final skin closure. A sterile dressing was placed. Patient was awakened by anesthesia and transferred to the [facility]. Patient was then transferred to the PACU for recovery. Postoperative plan: Patient will get 24 hours postop antibiotics. Patient will get in-house physical therapy and will be weight-bear as tolerated. Patient will follow up in office in 2 weeks for a wound check and x-rays. Patient will resume her Coumadin tomorrow for DVT prophylaxis and medical treatment. Patient will take doxycycline for 1 week while we follow cultures. Complications No intraoperative complications Admit VTE Documentation VTE Present on Admission: No VTE Mechan Device Prophylaxis: SCD's and Thigh High CLAUDINE Hose VTE Pharm Prophylaxis ordered?: Yes
--- NOTE | 2021-06-13 16:20 | RAD_ITS ---
STUDY: X-RAY - PELVIS AND LEFT HIP REASON FOR EXAM: Female, 65 years old. Post Op -- AP both hips on single bogdan/lateral of op hip PACU TECHNIQUE: 3 views of the pelvis and hip. COMPARISON: None. FINDINGS: Status post surgical resection of the left femoral head and neck. The proximal one third femoral prosthetic component is well placed within the intramedullary cavity as well as the acetabular cup. Both prosthetic components demonstrate good bony contact and alignment. Appearance of the intertrochanteric region including the medullary space and cortex suggests a prior prosthesis was present. Expected postoperative changes of the overlying soft tissues including gas and swelling. Surgical madeline are also present. RAD/Hip Min 2 Views (Portable) IMPRESSION: Status post total left hip arthroplasty Electronically Signed: Earl Valencia MD at 17:44 EDT , Service support ,
[2021-06-13] MEDS: Insulin Lispro 100 UNIT/ML INSULN.PEN SC (17:30)
[2021-06-13] MEDS: Lactated Ringers 1,000 ML 125 ML IV (17:59)
--- NOTE | 2021-06-13 17:59 | PCM.PN.HOSP ---
Subjective Subjective 65-year-old female presents to the hospital for an elective left hip repair. She is doing well from surgery, denies any significant pain at this time. She states that her medical history is stable and has not had any new major changes to her medications. Objective Data Objective Data Vital Signs: Vital Signs Temp Pulse Resp BP Pulse Ox 97.8 F 74 18 106/49 L 100 06/13/21 17:52 06/13/21 17:52 06/13/21 17:52 06/13/21 17:52 06/13/21 17:52 Oxygen Flow Rate (L/min) 6 Oxygen Delivery Method Simple Mask Weight: 196 lb 3.382 oz Body Mass Index (BMI) 33.7 Intake & Output: Intake and Output for Last 24 Hours 06/12/21 06/13/21 06/14/21 03:59 03:59 03:59 Intake Total 3335.5 / 3335.5 Balance 3335.5 / 3335.5 Lab / Micro Data Result Diagrams: 06/14/21 06:10 06/14/21 06:10 Labs: Laboratory Results - last 24 hr 06/13/21 10:35: POC Glucose 127 H 06/13/21 11:32: POC PT 19.9 H, INR 1.7 06/13/21 11:36: PT 15.8 H, INR 1.3 Micro: Microbiology 06/12/21 13:34 Interface Orders SARS-CoV-2 Antigen (Rapid) - Final 06/04/21 15:03 Swab (Method) Nasal Screen MRSA/MSSA - Final Radiography Diagnostic Testing: Radiology Impression Hip X-Ray 06/13/21 16:20 IMPRESSION: Status post total left hip arthroplasty Electronically Signed: Earl Valencia MD at 17:44 EDT , Service support , Physical Exam Const alert, oriented x3 and no apparent distress General Appearance: cooperative HEENT normocephalic and moist oral mucous membranes Eyes PERRL, EOMs intact bilaterally and conjunctivae normal Neck supple and no JVD Resp normal respiratory effort, no retractions, no use of accessory muscles and clear to auscultation bilaterally Auscultation: Negative for crackles, rales, rhonchi or wheezes Cardio regular rate, regular rhythm, S1 normal heart sound, S2 normal heart sound and no murmurs GI soft to palpation, non-tender and non-distended; Negative for hepatosplenomegaly Extremity no clubbing, cyanosis or edema Skin no rashes or lesions noted Skin Narrative: Dressing intact Neuro no focal motor deficits and no sensory deficits noted Psych affect normal Appearance: appropriate Assessment & Plan Assessment/Plan (1) Status post total hip replacement, left: PLAN: 1. Status post left total hip replacement on 06/13/2021 -Continue with pain meds per primary -Continue with PT/OT -Currently on Coumadin will continue 2. HTN/CKD 4 -Blood pressure is stable, will follow up kidney function -Continue with metoprolol 3. History of DVT with factor V Leiden -On Coumadin, INR today on surgery was 1.3 -Resume Coumadin when okay by surgery 4. Anxiety/depression -Stable -Continue with Cymbalta 5. Gout -Stable -Continue with allopurinol DVT: Coumadin Charges/Coding Visit Charges Inpatient E&M: 34653 Subs Hosp L2
[2021-06-13 18:31] LABS: Bedside Glucose 188 mg/dL (70-110)
[2021-06-13] MEDS: Ensure Surgery 237 ML LIQUID PO (19:01)
[2021-06-13] MEDS: Cefazolin 1 GM/50 ML BAG IV (20:09)
[2021-06-13] MEDS: Senna/Docusate Sodium 1 Tablet 2 TABLET PO (22:02)
[2021-06-13] MEDS: Doxycycline 100 MG CAPSULE PO (22:02)
[2021-06-14] VITALS (8 sets, daily range): BP systolic 83–122; BP diastolic 42–70; PULSE 83–87; RESP 16–18; TEMP 36.3–37; O2SAT 94–100
[2021-06-14] MEDS: Ondansetron 4 MG/2 ML Vial IV ×2 (01:45→17:09)
[2021-06-14] MEDS: Ketorolac 15 MG/ML Vial IV ×2 (01:45→11:30)
[2021-06-14] MEDS: 0.9% Saline Lock 10 ML Syringe IV (01:46)
[2021-06-14] MEDS: Cefazolin 1 GM/50 ML BAG IV (05:54)
[2021-06-14] MEDS: Acetaminophen 500 MG Tablet 1000 MG PO ×3 (05:54→22:27)
[2021-06-14 06:32] LABS: Hematocrit 24.9 % (37-47); Mean Corp Hgb Conc 32.1 g/dL (32-36); Mean Corpuscular Hgb 32.8 pg (27.0-32.0); Mean Platelet Vol. 9.3 fl (6.2-12.0); Platelet Count 179 K/mm3 (150-450); RBC Distribution Width CV 12.9 % (11.6-14.6); RBC Distribution Width SD 47.4 fl (35.1-43.9); Red Blood Count 2.44 M/mm3 (4.2-5.4)
[2021-06-14 06:54] LABS: Anion Gap 9 (5-15); BUN 43 mg/dL (7-18); Chloride 104 mmol/L (98-107); Creatinine, Serum 2.53 mg/dL (0.55-1.02); EST Glomerular Filtration Rate 20 mL/min (>60); Est Glom Filt Rate - Afr Amer 24 mL/min (>60); Estimated Creatinine Clearance 18.63 ml/min; Glucose 169 mg/dL (74-106); Potassium 5.1 mmol/L (3.5-5.1); Sodium Level 136 mmol/L (136-145)
[2021-06-14] MEDS: Allopurinol 100 MG Tablet 200 MG PO (07:58)
[2021-06-14] MEDS: Famotidine 20 MG Tablet PO (07:58)
[2021-06-14] MEDS: Ensure Surgery 237 ML LIQUID PO ×2 (07:59→12:19)
[2021-06-14] MEDS: Cholecalciferol (VIT D3) 25 MCG TABLET (1,000 UNITS) PO (07:59)
--- NOTE | 2021-06-14 09:39 | PCM.PN.ORT ---
Subjective Subjective The patient was sitting in bedside chair upon examination. Patient denies any chest pain, shortness of breath, dizziness, lightheadedness, nausea or vomiting, or calf pain. Pain is controlled on medications. No adverse overnight events. Overall patient is doing very well. She states she has been up walking. She feels well postoperatively. Patient does have history of factor V Leiden with previous DVTs. She is currently on Coumadin. She has managed by outside provider in which she has postoperative plan in place. She has Lovenox at the pharmacy. She is resuming her Coumadin. Patient states she has not required any narcotic at this time. Objective Data Objective Data Vital Signs: Vital Signs Temp Pulse Resp BP Pulse Ox 98.1 F 83 16 101/52 L 95 06/14/21 05:51 06/14/21 05:51 06/14/21 07:30 06/14/21 05:51 06/14/21 07:30 Oxygen Flow Rate (L/min) 1 Oxygen Delivery Method Room Air Weight: 89 kg Body Mass Index (BMI) 33.7 Intake & Output: Intake and Output for Last 24 Hours 06/12/21 06/13/21 06/14/21 23:59 23:59 23:59 Intake Total 4656.33 / 4656.33 1279.17 / 1279.17 Output Total 400 / 400 Balance 4656.33 / 4656.33 879.17 / 879.17 Lab / Micro Data Result Diagrams: 06/14/21 06:10 06/14/21 06:10 Labs: Laboratory Results - last 24 hr 06/13/21 10:35: POC Glucose 127 H 06/13/21 11:32: POC PT 19.9 H, INR 1.7 06/13/21 11:36: PT 15.8 H, INR 1.3 06/13/21 17:10: POC Glucose 188 H 06/14/21 06:10: WBC 13.0 H, RBC 2.44 L, Hgb 8.0 L, Hct 24.9 L, MCV 102.0 H, MCH 32.8 H, MCHC 32.1, RDW Std Deviation 47.4 H, RDW Coeff of [place] 12.9, Plt Count 179, MPV 9.3 06/14/21 06:10: Sodium 136, Potassium 5.1, Chloride 104, Carbon Dioxide 23.0, Anion Gap 9, BUN 43 H, Creatinine 2.53 H, Estim Creat Clear Calc 18.63, Est GFR (MDRD) Af Amer 24 L, Est GFR (MDRD) Non-Af 20 L, BUN/Creatinine Ratio 17.0, Glucose 169 H, Calcium 8.0 L Micro: Microbiology 06/12/21 13:34 Interface Orders SARS-CoV-2 Antigen (Rapid) - Final 06/04/21 15:03 Swab (Method) Nasal Screen MRSA/MSSA - Final Radiography Diagnostic Testing: Radiology Impression Hip X-Ray 06/13/21 16:20 IMPRESSION: Status post total left hip arthroplasty Electronically Signed: Earl Valencia MD at 17:44 EDT , Service support , Physical Exam Narrative Vital signs stable and afebrile. Patient is able to plantarflex and dorsiflex actively. Sensation is intact to light touch to saphenous, sural, superficial and deep peroneal, and tibial distribution. Dressing is clean dry and intact. Negative Homans bilaterally, negative signs and symptoms of DVT. Assessment & Plan Assessment/Plan (1) Status post total hip replacement, left: PLAN: 1. S/P robotic assisted left hip conversion to total hip arthroplasty POD #1 2. Continue Pain Medications: Tylenol and oxycodone. 3. DVT Prophylaxis: Patient is resuming her Coumadin. She has plans set up with outside provider with [facility] at the pharmacy. She will follow postoperatively with INR testing as instructed. 4. PT/OT: Weightbearing as tolerated. Continue postoperative posterior hip dislocation precautions for 3 months 5. H & H: 8.0/24.9, asymptomatic. Postoperative anemia secondary to acute blood loss from surgery without any intra operative complications. 6. Reactive leukocytosis: Currently 13.0, afebrile. Patient did receive Decadron intraoperatively 7. Continue postoperative medical management per medicine 8. Encouraged Incentive Spirometry 9. Continue antibiotics while following cultures: Cultures are currently pending. She will will utilize doxycycline for 1 week postoperatively. 10. Disposition: Overall patient is doing very well postoperatively with regards to her left hip replacement. She does wish to go home today. Case management is on board in which we will get approval for home health therapy for the next 2 weeks. She will then resume and start outpatient physical therapy after the home therapy. She will follow-up per postop instructions. Prescriptions will be E scribed to the primary pharmacy. The narcotic will be placed on the chart and only get filled as needed. I have reviewed the [place] Automated Rx Reporting System (OARRS) report for this patient for refill pattern and other prescriber involvement as part of the appropriate surveillance for the provision of acute and chronic controlled medications. The report was requested and reviewed on the date of this entry and was considered in the prescribing process.
--- NOTE | 2021-06-14 09:46 | PCM.DC ---
Discharge Instructions Diet Discharge Diet: No restrictions Activity Discharge Activity: May Not Drive (while taking narcotic pain medications.) May shower in (days): 1 (only if incision is dry and without drainage. Do NOT soak/submerge in tub/pool/gillespie/stream/hot tub.)) Ice area for (Minutes): 20 (Every 1-2 hours while awake[address] barrier between ice and skin.) Weight Bearing Status: Weight bearing as tolerated Keep extremity elevated above heart level: Operative Extremity Dressing / Incision Call your doctor if your incision/area has: Continuous Slow Oozing, Sudden Increased Bleeding, Increased Pain/ Swelling, Increased Redness and Foul Smelling Discharge Call your doctor if you observe: Fever of 101 or Higher, Shortness of breath, Chest pain, Calf discomfort and Uncontrolled pain Remove Dressing in: 4 days (May remove dressing on June 18, 2021) Additional Dressing/Incision Instructions:: Follow [facility] Post-op Instructions. Once postoperative dressing has been removed, only use gentle soap and water over the incision. Do not use any ointments, Neosporin, salves, alcohol pads over the incision for 6 weeks postoperatively. Do not submerge underwater for 6 weeks postoperatively. Continue with CLAUDINE hose/elastic stockings for 2 weeks postoperatively. May remove at nighttime but needs to be placed back on the leg during the day. Do NOT use alcohol with narcotic pain medication. Do NOT make important decisions while taking narcotic medication. If you have problems with taking your medication (rash, itching, nausea, etc.) call the office at once. Follow Up Care Test Results: Test results from this visit will be discussed in further detail at your follow-up appointment, if applicable. Discharge Plan Admission Admit Date/Time: 06/13/21 15:29 Attending Provider: Jesus Alegre Primary Care Provider: Emani Chowdhury Consulting Providers: Carroll Wellington Discharge Orders/Prescriptions Prescriptions: New acetaminophen 500 mg Tablet 1,000 mg PO TID Qty: 100 RF: 0 doxycycline monohydrate 100 mg Capsule 100 mg PO BID 7 Days Qty: 14 RF: 0 oxycodone 5 mg Tablet 5 - 10 mg PO Q4H PRN PRN (Reason: As needed pain) 4 Days Qty: 42 RF: 0 sennosides-docusate sodium [Stool Softener-Stimulant Laxat] 8.6-50 mg Tablet 2 tab PO BID Qty: 14 RF: 0 Continued metoprolol tartrate 25 mg tablet 25 mg PO BID RF: 0 cholecalciferol (vitamin D3) 1,000 unit capsule 1,000 unit PO QDAY RF: 0 warfarin 7.5 mg tablet 7.5 mg PO QDAY RF: 0 oxybutynin chloride 10 mg tablet extended release 24hr 10 mg PO QDAY RF: 0 allopurinol 100 mg tablet 200 mg PO QDAY RF: 0 duloxetine [Cymbalta] 20 mg Capsule,Delayed Release(Dr/Ec) 40 mg PO DAILY RF: 0 Cbd Gummies 1 tab PO/SL DAILY PRN (Reason: Pain) RF: 0 albuterol sulfate 90 mcg/actuation Hfa Aerosol Inhaler 1 inh INHALATION Q6H PRN (Reason: SOB) RF: 0 Referrals / Follow Up: Emnai Chowdhury MD [Primary Care Provider] - Romeo Jules PA-C [PHYSICIAN CERTIFIED NOVELL ADMINISTRATOR] - 06/28/21 2:00 pm Disposition Disposition (needs filled in before D/C Order can be placed): Home Health Service
[2021-06-14] MEDS: Doxycycline 100 MG CAPSULE PO ×2 (10:20→22:26)
[2021-06-14] MEDS: Tolterodine Tartrate 2 MG CAP.SA PO (10:20)
[2021-06-14] MEDS: DULoxetine Hcl 20 MG Capsule 40 MG PO (10:20)
[2021-06-14] MEDS: Senna/Docusate Sodium 1 Tablet 2 TABLET PO ×2 (10:21→22:27)
--- NOTE | 2021-06-14 13:00 | CASEMGMT ---
Addendum entered by Blu Thorpe 06/14/21 15:58: Pt to give self Lovenox injections @ d/c, to bridge until INR therapeutic. Pt states she has given these to herself in the past and feels comfortable w/same. Call placed to [facility] for santos check. Cost for pt is: $66.67. Pt made aware and states this is affordable. Original Note: RN CM AUDIOVISUAL TECHNICIAN CM to room to meet with patient for initial transition planning/care coordination assessment. RN CHELSEA introduced self and role at [facility]. Pt voices understanding and consents to assessment at this time. Pt sitting up in recliner chair in room in no distress at this time. Pt is A/O at this time and answers all questions appropriately. Care providers, pharmacy, and demographics verified/updated at this time. PCP: Dr Emani Chowdhury @ [facility] T[facility]: Dr Alegre--ortho, Dr Weaver-nephrology in [place] Preferred Pharmacy:[facility] in [place] Insurance: [employer] MCR Prescription Benefit: Yes Living Will/HPOA: States does not have LW or HCPOA . Interested in more information and would like to talk to SW to complete paperwork. LNOK: Son, Joce Maravilla. Sister, Elma Koenig Living Arrangements: Lives w/her son in 2-story home w/ramp entrance. FFSU. Pt was independent prior to surgery. Son works full-time during the day but is home in the evenings and @ [employer]. Son and pt's sister both supportive and able to help as needed. Transportation: Pt states drives self. Son/Sister both can help w/transportation at times. Pt states, if insurance does not approve HHC, that she may have difficulty finding transportation to/from OP therapy. Pt made aware [facility] van transportation does provide transport to [facility], if she chooses to go there. Pt states she may be interested in this. Pt provided w/[facility] van transportation info/contact #. DME: States has the following DME: shower chair, cane, walker, W/C, INR machine. Has a CPAP, but has not used in about 5 yrs. Pt states no need for further DME at this time. HHC/SNF: Hx of going to [facility] and has HHC in the past--she thinks has had both [facility]. Pt wishes to discharge home w/HHC. She does not want to go to a SNF. Pt was provided with list of [facility] providers including quality and resource use data and consistent with the patient's preferred geographic region, medical needs, and insurance network. The pt's preferred provider is [facility]. Pt states would like SN in addition to PT/OT. Call placed to Wanda @ [facility] and referral made. Referral packet faxed. Wanda states they are able to accept pt, but is unsure if pt's insurance will approve [facility] or how many visits they will approve. Pt made aware of same. KASH Mirza, also notified. Pt provided w/script for OP therapy for her to take to OP location of her choice if insurance does not approve [facility]. Pt wishes to return home and states has no concerns with going home at time of discharge. CM to follow for any further discharge planning/needs. Pt voices no further concerns/needs at this time. Advised pt to ask for CM if any further questions/concerns/needs arise. Voices understanding. PLAN: Home w/possible HHC @ [facility], if insurance approves. If insurance does not approve [facility], pt has script to take to location of her choice for OP therapy. Pt to call Dr Alegre's office if does OP therapy instead of HHC to notify them. Hever NOLAND RN CM
--- NOTE | 2021-06-14 13:43 | PCM.PN.HOSP ---
Subjective Subjective Doing well, no issues overnight. Objective Data Objective Data Vital Signs: Vital Signs Temp Pulse Resp BP Pulse Ox 98.5 F 83 16 83/42 L 99 06/14/21 10:31 06/14/21 10:31 06/14/21 10:31 06/14/21 10:31 06/14/21 10:31 Oxygen Flow Rate (L/min) 1 Oxygen Delivery Method Room Air Weight: 196 lb 3.382 oz Body Mass Index (BMI) 33.7 Intake & Output: Intake and Output for Last 24 Hours 06/13/21 06/14/21 06/15/21 03:59 03:59 03:59 Intake Total 5545.91 / 5545.91 389.59 / 389.59 Output Total 400 / 400 Balance 5145.91 / 5145.91 389.59 / 389.59 Lab / Micro Data Result Diagrams: 06/14/21 06:10 06/14/21 06:10 Labs: Laboratory Results - last 24 hr 06/13/21 17:10: POC Glucose 188 H 06/14/21 06:10: WBC 13.0 H, RBC 2.44 L, Hgb 8.0 L, Hct 24.9 L, MCV 102.0 H, MCH 32.8 H, MCHC 32.1, RDW Std Deviation 47.4 H, RDW Coeff of [place] 12.9, Plt Count 179, MPV 9.3 06/14/21 06:10: Sodium 136, Potassium 5.1, Chloride 104, Carbon Dioxide 23.0, Anion Gap 9, BUN 43 H, Creatinine 2.53 H, Estim Creat Clear Calc 18.63, Est GFR (MDRD) Af Amer 24 L, Est GFR (MDRD) Non-Af 20 L, BUN/Creatinine Ratio 17.0, Glucose 169 H, Calcium 8.0 L Micro: Microbiology 06/13/21 Unknown Implant - Hip Gram Stain - Final 06/13/21 Unknown Implant - Hip Wound Culture - Preliminary No growth-Final to follow 06/13/21 Unknown Implant - Hip Gram Stain - Final 06/13/21 Unknown Implant - Hip Wound Culture - Preliminary No growth-Final to follow 06/13/21 Unknown Bone - Hip Gram Stain - Final 06/13/21 Unknown Bone - Hip Wound Culture - Preliminary No growth-Final to follow 06/12/21 13:34 Interface Orders SARS-CoV-2 Antigen (Rapid) - Final 06/04/21 15:03 Swab (Method) Nasal Screen MRSA/MSSA - Final Radiography Diagnostic Testing: Radiology Impression Hip X-Ray 06/13/21 16:20 IMPRESSION: Status post total left hip arthroplasty Electronically Signed: Earl Valencia MD at 17:44 EDT , Service support , Physical Exam Const alert, oriented x3 and no apparent distress General Appearance: cooperative HEENT normocephalic and moist oral mucous membranes Eyes PERRL, EOMs intact bilaterally and conjunctivae normal Neck supple and no JVD Resp normal respiratory effort, no retractions, no use of accessory muscles and clear to auscultation bilaterally Auscultation: Negative for crackles, rales, rhonchi or wheezes Cardio regular rate, regular rhythm, S1 normal heart sound, S2 normal heart sound and no murmurs GI soft to palpation, non-tender and non-distended; Negative for hepatosplenomegaly Extremity no clubbing, cyanosis or edema Skin no rashes or lesions noted Skin Narrative: Dressing intact Neuro no focal motor deficits and no sensory deficits noted Psych affect normal Appearance: appropriate Assessment & Plan Assessment/Plan (1) Status post total hip replacement, left: PLAN: 1. Status post left total hip replacement on 06/13/2021/anemia due to surgery -Continue with pain meds per primary -Continue with PT/OT -Currently on Coumadin will continue -Hemoglobin of 8, her last hemoglobin in our computer system was from 2019. Likely due to surgery will have her recheck as an outpatient and monitor. 2. HTN/CKD 4 -Blood pressure is stable, will follow up kidney function -Continue with metoprolol 3. History of DVT with factor V Leiden -On Coumadin, INR on day of surgery was 1.3 -Resume Coumadin when okay by surgery 4. Anxiety/depression -Stable -Continue with Cymbalta 5. Gout -Stable -Continue with allopurinol DVT: Coumadin Charges/Coding Visit Charges Inpatient E&M: 38224 Subs Hosp L2
--- NOTE | 2021-06-14 15:58 | CASEMGMT ---
SW assisted pt in completing LW/POA. SW gave pt originals and copies, copies also placed on chart. NAHUM Dumont
[2021-06-15] MEDS: Acetaminophen 500 MG Tablet 1000 MG PO (05:33)
[2021-06-15 05:37] VITALS: BP 107/45; PULSE 86; RESP 16; TEMP 36.1; O2SAT 95
[2021-06-15 06:12] LABS: Absolute Lymphocyte Count 1.52 X10^3/uL (0.83-4.51); Absolute Neutrophil Count 4.1 X10^3/uL (2.0-7.7); Basophil# 0.01 X10^3/uL; Basophil% 0.2 % (0-1); Eosinophil# 0.07 X10^3/uL; Eosinophils% 1.1 % (0-5); Hematocrit 25.1 % (37-47); Hemoglobin 8.1 g/dL (12.0-15.0); Lymphocyte # 1.52 X10^3/ul (0.83-4.51); Lymphocyte % 23.5 % (19-41); Mean Corp Hgb Conc 32.3 g/dL (32-36); Mean Corpuscular Hgb 32.8 pg (27.0-32.0); Mean Corpuscular Volume 101.6 fL (81-99); Mean Platelet Vol. 9.5 fl (6.2-12.0); Monocyte# 0.77 X10^3/uL; Monocyte% 11.9 % (0-10); NRBC Flagged by Analyzer 0 % (0-5); Neutrophil # 4.06 X10^3/uL (2.7-7.7); Neutrophil % 62.8 % (47-70); Platelet Count 154 K/mm3 (150-450); RBC Distribution Width CV 13.1 % (11.6-14.6); RBC Distribution Width SD 47.8 fl (35.1-43.9); Red Blood Count 2.47 M/mm3 (4.2-5.4); White Blood Count 6.5 K/mm3 (4.4-11.0)
[2021-06-15 06:51] LABS: Anion Gap 8 (5-15); BUN 58 mg/dL (7-18); BUN/Creat Ratio 19.2 RATIO (10-20); Calcium,Total 8.7 mg/dL (8.5-10.1); Chloride 103 mmol/L (98-107); Creatinine, Serum 3.02 mg/dL (0.55-1.02); EST Glomerular Filtration Rate 16 mL/min (>60); Est Glom Filt Rate - Afr Amer 20 mL/min (>60); Estimated Creatinine Clearance 15.61 ml/min; Glucose 121 mg/dL (74-106); Potassium 4.9 mmol/L (3.5-5.1); Sodium Level 134 mmol/L (136-145)
--- NOTE | 2021-06-15 07:02 | PN.ORTHO_ITS ---
Subjective Subjective The patient was sitting in bed upon examination. Patient denies any chest pain, shortness of breath, dizziness, lightheadedness, nausea or vomiting, or calf pain. Pain is controlled on medications. No adverse overnight events. Overall patient is doing much better today. The plan was for her to go home as she was adamant but changed her mind later in the evening. Due to her lower blood pressure the hospitalist did want her to hold off on the metoprolol for 2 days. She will resume this on Friday. Patient has been voiding on her own. She is wanting to go home after therapy this morning. Objective Data Objective Data Vital Signs: Vital Signs Temp Pulse Resp BP Pulse Ox 96.9 F L 86 16 107/45 L 95 06/15/21 05:37 06/15/21 05:37 06/15/21 05:37 06/15/21 05:37 06/15/21 05:37 Oxygen Flow Rate (L/min) 1 Oxygen Delivery Method Room Air Weight: 89 kg Body Mass Index (BMI) 33.7 Intake & Output: Intake and Output for Last 24 Hours 06/13/21 06/14/21 06/15/21 23:59 23:59 23:59 Intake Total 4656.33 / 4656.33 1779.17 / 1779.17 Output Total 400 / 400 Balance 4656.33 / 4656.33 1379.17 / 1379.17 Lab / Micro Data Result Diagrams: 06/15/21 05:48 06/15/21 05:48 Labs: Laboratory Results - last 24 hr 06/15/21 05:48: WBC 6.5, RBC 2.47 L, Hgb 8.1 L, Hct 25.1 L, MCV 101.6 H, MCH 32.8 H, MCHC 32.3, RDW Std Deviation 47.8 H, RDW Coeff of [place] 13.1, Plt Count 154, MPV 9.5, Immature Gran % (Auto) 0.500, Neut % (Auto) 62.8, Lymph % (Auto) 23.5, [place] % (Auto) 11.9 H, Eos % (Auto) 1.1, Baso % (Auto) 0.2, Absolute Neuts (auto) 4.1, Absolute Lymphs (auto) 1.52, Nucleated RBC % 0 06/15/21 05:48: Sodium 134 L, Potassium 4.9, Chloride 103, Carbon Dioxide 23.0, Anion Gap 8, BUN 58 H, Creatinine 3.02 H, Estim Creat Clear Calc 15.61, Est GFR (MDRD) Af Amer 20 L, Est GFR (MDRD) Non-Af 16 L, BUN/Creatinine Ratio 19.2, Glucose 121 H, Calcium 8.7 Micro: Microbiology 06/13/21 Unknown Implant - Hip Gram Stain - Final 06/13/21 Unknown Implant - Hip Wound Culture - Preliminary No growth-Final to follow 06/13/21 Unknown Implant - Hip Gram Stain - Final 06/13/21 Unknown Implant - Hip Wound Culture - Preliminary No growth-Final to follow 06/13/21 Unknown Bone - Hip Gram Stain - Final 06/13/21 Unknown Bone - Hip Wound Culture - Preliminary No growth-Final to follow 06/12/21 13:34 Interface Orders SARS-CoV-2 Antigen (Rapid) - Final 06/04/21 15:03 Swab (Method) Nasal Screen MRSA/MSSA - Final Physical Exam Narrative Vital signs stable and afebrile. Patient is able to plantarflex and dorsiflex actively. Sensation is intact to light touch to saphenous, sural, superficial and deep peroneal, and tibial distribution. Dressing is clean dry and intact. Negative Homans bilaterally, negative signs and symptoms of DVT. Const alert, oriented x3 and no apparent distress Assessment & Plan Assessment/Plan (1) Status post total hip replacement, left: PLAN: 1. S/P robotic assisted left hip conversion to total hip arthroplasty POD #2 2. Continue Pain Medications: Tylenol and oxycodone. 3. DVT Prophylaxis: Patient is resuming her Coumadin. She has plans set up with outside provider with Lovenox at the pharmacy. She will follow postoperatively with INR testing as instructed. 4. PT/OT: Weightbearing as tolerated. Continue postoperative posterior hip dislocation precautions for 3 months 5. H & H: 8.1/25.1, asymptomatic. Postoperative anemia secondary to acute blood loss from surgery without any intra operative complications. 6. Reactive leukocytosis: Resolved currently 6.5, afebrile. Patient did receive Decadron intraoperatively 7. Continue postoperative medical management per medicine 8. Encouraged Incentive Spirometry 9. Continue antibiotics while following cultures: Cultures are currently pending. She will will utilize doxycycline for 1 week postoperatively. 10. Disposition: Patient did stay an additional night due to some lower blood pressure and voiding issues. Her blood pressure is better this morning and overall she feels much better. She is voiding on her own. Hospitalist does want her to hold off with the metoprolol for 2 days and she will resume this on Friday. She will also follow-up with the primary care physician in 1 week as well as repeat lab work in 1 week. She does have significant history for chronic kidney disease. She is utilizing only Tylenol for pain control. There is prescription attached to the chart for narcotic and will only use if needed. Patient also has plan set up with outside provider for her Coumadin and Lovenox. She will follow [facility] discharge instructions. I have reviewed the [place] Automated Rx Reporting System (OARRS) report for this patient for refill pattern and other prescriber involvement as part of the appropriate surveillance for the provision of acute and chronic controlled medications. The report was requested and reviewed on the date of this entry a nd was considered in the prescribing process.
[2021-06-15] MEDS: 0.9% Normal Saline 1,000 ML 125 ML IV (08:06)
[2021-06-15] MEDS: Allopurinol 100 MG Tablet 200 MG PO (08:13)
[2021-06-15] MEDS: Cholecalciferol (VIT D3) 25 MCG TABLET (1,000 UNITS) PO (08:13)
[2021-06-15] MEDS: Famotidine 20 MG Tablet PO (08:13)
[2021-06-15] MEDS: Doxycycline 100 MG CAPSULE PO (08:13)
[2021-06-15] MEDS: Senna/Docusate Sodium 1 Tablet 2 TABLET PO (08:14)
[2021-06-15] MEDS: Tolterodine Tartrate 2 MG CAP.SA PO (08:14)
[2021-06-15] MEDS: Ensure Surgery 237 ML LIQUID PO ×2 (08:17→13:00)
[2021-06-15 08:54] VITALS: BP 93/53; PULSE 86; RESP 16; TEMP 36.9; O2SAT 95
[2021-06-15] MEDS: DULoxetine Hcl 20 MG Capsule 40 MG PO (09:19)
--- NOTE | 2021-06-15 10:49 | PCM.PN.HOSP ---
Subjective Subjective Doing well, no issues overnight. Nausea has resolved and she feels much better. She is not concerned about her creatinine, she does have IgA nephropathy so she does plan to follow-up with her PCP. We will give her some fluids today. Hemoglobin is stable. Objective Data Objective Data Vital Signs: Vital Signs Temp Pulse Resp BP Pulse Ox 98.5 F 86 16 93/53 L 95 06/15/21 08:54 06/15/21 08:54 06/15/21 08:54 06/15/21 08:54 06/15/21 08:54 Oxygen Flow Rate (L/min) 1 Oxygen Delivery Method Room Air Weight: 196 lb 3.382 oz Body Mass Index (BMI) 33.7 Intake & Output: Intake and Output for Last 24 Hours 06/14/21 06/15/21 06/16/21 03:59 03:59 03:59 Intake Total 5545.91 / 5545.91 889.59 / 889.59 Output Total 400 / 400 Balance 5145.91 / 5145.91 889.59 / 889.59 Lab / Micro Data Result Diagrams: 06/15/21 05:48 06/15/21 05:48 Labs: Laboratory Results - last 24 hr 06/15/21 05:48: WBC 6.5, RBC 2.47 L, Hgb 8.1 L, Hct 25.1 L, MCV 101.6 H, MCH 32.8 H, MCHC 32.3, RDW Std Deviation 47.8 H, RDW Coeff of [place] 13.1, Plt Count 154, MPV 9.5, Immature Gran % (Auto) 0.500, Neut % (Auto) 62.8, Lymph % (Auto) 23.5, [place] % (Auto) 11.9 H, Eos % (Auto) 1.1, Baso % (Auto) 0.2, Absolute Neuts (auto) 4.1, Absolute Lymphs (auto) 1.52, Nucleated RBC % 0 06/15/21 05:48: Sodium 134 L, Potassium 4.9, Chloride 103, Carbon Dioxide 23.0, Anion Gap 8, BUN 58 H, Creatinine 3.02 H, Estim Creat Clear Calc 15.61, Est GFR (MDRD) Af Amer 20 L, Est GFR (MDRD) Non-Af 16 L, BUN/Creatinine Ratio 19.2, Glucose 121 H, Calcium 8.7 Micro: Microbiology 06/13/21 Unknown Implant - Hip Gram Stain - Final 06/13/21 Unknown Implant - Hip Wound Culture - Preliminary No growth-Final to follow 06/13/21 Unknown Implant - Hip Gram Stain - Final 06/13/21 Unknown Implant - Hip Wound Culture - Preliminary No growth-Final to follow 06/13/21 Unknown Bone - Hip Gram Stain - Final 06/13/21 Unknown Bone - Hip Wound Culture - Preliminary No growth-Final to follow 06/12/21 13:34 Interface Orders SARS-CoV-2 Antigen (Rapid) - Final 06/04/21 15:03 Swab (Method) Nasal Screen MRSA/MSSA - Final Physical Exam Const alert, oriented x3 and no apparent distress General Appearance: cooperative HEENT normocephalic and moist oral mucous membranes Eyes PERRL, EOMs intact bilaterally and conjunctivae normal Neck supple and no JVD Resp normal respiratory effort, no retractions, no use of accessory muscles and clear to auscultation bilaterally Auscultation: Negative for crackles, rales, rhonchi or wheezes Cardio regular rate, regular rhythm, S1 normal heart sound, S2 normal heart sound and no murmurs GI soft to palpation, non-tender and non-distended; Negative for hepatosplenomegaly Extremity no clubbing, cyanosis or edema Skin no rashes or lesions noted Skin Narrative: Dressing intact Neuro no focal motor deficits and no sensory deficits noted Psych affect normal Appearance: appropriate Assessment & Plan Assessment/Plan (1) Status post total hip replacement, left: PLAN: 1. Status post left total hip replacement on 06/13/2021/anemia due to surgery -Continue with pain meds per primary -Continue with PT/OT -Currently on Coumadin will continue -Hemoglobin of 8.1, likely due to surgery will have her recheck with her PCP in 3 to 5 days 2. HTN/CKD 4 from IgA nephropathy -Blood pressure is stable, will follow up kidney function -Continue with metoprolol 3. History of DVT with factor V Leiden -On Coumadin, INR on day of surgery was 1.3 -Resume Coumadin when okay by surgery 4. Anxiety/depression -Stable -Continue with Cymbalta 5. Gout -Stable -Continue with allopurinol DVT: Coumadin Charges/Coding Visit Charges Inpatient E&M: 50797 Subs Hosp L2
[2021-06-15 13:30] VITALS: BP 107/58; PULSE 92; RESP 16; TEMP 36.9; O2SAT 98
== END 2021-06-15 14:51 | disposition home health service (06) | DRG 470 ==
LOC: SDC 15:39 → MS3 18:06
PROVIDERS: Anesthesiology; Family Medicine; Admitting Provider Specialist; PCP Student in an Organized Health Care Education/Training Program; Referring Provider Specialist; Visit Provider Specialist
PROC: 8E0Y0CZ Robotic Assisted Procedure of Lower Extremity, Open Approach (ICD-10-PCS; CPT 27130; principal; 2021-06-13 12:00)
DX: M16.12 Unilateral primary osteoarthritis, left hip (principal); S72.142P Displaced intertrochanteric fracture of left femur, subsequent encounter for closed fracture with malunion; D68.51 Activated protein C resistance; M87.252 Osteonecrosis due to previous trauma, left femur; N18.4 Chronic kidney disease, stage 4 (severe); D62 Acute posthemorrhagic anemia; X58.XXXD Exposure to other specified factors, subsequent encounter; M17.0 Bilateral primary osteoarthritis of knee; I12.9 Hypertensive chronic kidney disease with stage 1 through stage 4 chronic kidney disease, or unspecified chronic kidney disease; E11.22 Type 2 diabetes mellitus with diabetic chronic kidney disease; E78.00 Pure hypercholesterolemia, unspecified; F32.9 Major depressive disorder, single episode, unspecified; J45.909 Unspecified asthma, uncomplicated; G47.30 Sleep apnea, unspecified; M10.9 Gout, unspecified; Z79.01 Long term (current) use of anticoagulants; Z79.899 Other long term (current) drug therapy; Z86.718 Personal history of other venous thrombosis and embolism
CPT/HCPCS: 36415; 36416; 73502; 80048; 82962; 83735; 85025; 85027; 85610; 87015; 87070; 87075; 87081; 87102; 87116; 87176; 87205; 87206; 87426; 88305; 88311; 93005; 97110; 97116; 97162; 97166; 97530; 97535; 99251; C1776; C9803; J7030; J7120; A4216; G0463; J2405